=== PATIENT | female | born 1935 | race Caucasian/White ===

== ENCOUNTER 2017-05-24 16:29 | Inpatient (IN) | payer MEDICARE ==
[~2017-05-24] VITALS: Ht 157.5 cm; Wt 77.6 kg
[2017-05-24] MEDS ORDERED: RISP0.5T3 PO (16:53)
[2017-05-24] MEDS ORDERED: AMLO10TA2 PO (16:53)
[2017-05-24] MEDS ORDERED: DONE5TAB56 PO (16:53)
[2017-05-24] MEDS ORDERED: ACET325T9 PO (16:53)
[2017-05-24] MEDS ORDERED: HALO2TAB PO (16:53)
[2017-05-24 18:40] VITALS: BP 153/52
[2017-05-24] MEDS ORDERED: MAG HYDROX/AL HYDROX/SIMETH 30 ML ORAL.SUSP PO PRN (18:45)
[2017-05-24] MEDS ORDERED: METHYL SALICYLATE/MENTHOL TOPICAL OINTMENT 29GM TUBE. TP PRN (18:45)
[2017-05-24] MEDS ORDERED: MAGNESIUM HYDROXIDE 2,400 MG/30 ML ORAL.SUSP. PO PRN (18:45)
[2017-05-24] MEDS ORDERED: ACETAMINOPHEN 325 MG TABLET PO PRN (18:45)
[2017-05-24] MEDS: DONEPEZIL HCL 5 MG TABLET. PO SCH (19:56)
[2017-05-24] MEDS: risperiDONE 0.25 MG TABLET. PO SCH (19:56)
--- NOTE | 2017-05-24 20:46 | PDOC ---
Exam Chemo Demential Exam: Chemo Note: Please also refer to the separate dictated note~for this date of service dictated separately.~Patient seen individually. Discussed the patient with Nursing staff reviewed the chart.~Reviewed interim history and current functioning. Reviewed vital signs,~Labs/ Radiology~and current medications noted below. Continue current treatment with the changes noted in the dictated addendum note Assessment: Vital Signs: Vital Signs Date Time Temp Pulse Resp B/P (MAP) Pulse Ox O2 Delivery O2 Flow Rate FiO2 05/24/17 18:40 98.4 74 18 153/52 (85) 97 Current Medications: Meds: Current Medications Amlodipine Besylate (Norvasc) 10 mg DAILY PO ; Start 05/25/17 at 09:00 Donepezil HCl (Aricept) 5 mg HS PO Last administered on 05/24/17 19:56; Start 05/24/17 at 21:00 Risperidone (RisperDAL) 0.25 mg BID PO Last administered on 05/24/17 19:56; Start 05/24/17 at 21:00 Acetaminophen (Tylenol) 650 mg PRN Q6HRS PRN PO PAIN / TEMP; Start 05/24/17 at 18:45 Multi-Ingredient Ointment (Analgesic [place]) 1 shell PRN QID PRN TP MUSCLE PAIN; Start 05/24/17 at 18:45 Al Hydroxide/Mg Hydroxide (Mylanta Plus Xs) 15 ml PRN AFTMEALHC PRN PO DYSPEPSIA; Start 05/24/17 at 18:45 Magnesium Hydroxide (Milk Of Magnesia) 2,400 mg PRN QHS PRN PO CONSTIPATION; Start 05/24/17 at 18:45 Active Scripts Active Reported Risperidone 0.5 Mg Tablet 0.25 Mg PO BID Aricept (Donepezil Hcl) 5 Mg Tablet 5 Mg PO HS Amlodipine Besylate 10 Mg Tablet 10 Mg PO DAILY SCOTT OLSON MD May 24, 2017 20:46
--- NOTE | 2017-05-24 20:58 | EKG ---
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
[2017-05-25 06:28] VITALS: BP 181/81
[2017-05-25 06:28] LABS: BASO # 0.1 x10^3/uL (0.0-0.2); BASO % 1 % (0-3); EOS # 0.3 x10^3/uL (0.0-0.7); EOS % 4 % (0-3); HEMATOCRIT 42.1 % (36.0-47.0); HEMOGLOBIN 14.2 g/dL (12.0-15.5); LYMPH % 36 % (24-48); MEAN CORPUSCULAR HEMOGLOBIN 32 pg (25-35); MEAN CORPUSCULAR HGB CONC 34 g/dL (31-37); MEAN CORPUSCULAR VOLUME 94 fL (79-100); MONO # 0.9 x10^3/uL (0.0-1.1); MONO % 11 % (0-9); NEUT % 48 % (31-73); PLATELET COUNT 319 x10^3/uL (140-400); RED CELL DISTRIBUTION WIDTH 14.1 % (11.5-14.5); WHITE BLOOD COUNT 8.3 x10^3/uL (4.0-11.0)
[2017-05-25 06:37] LABS: ALBUMIN 3.8 g/dL (3.4-5.0); ALBUMIN/GLOBULIN RATIO 0.9 (1.0-1.7); CALCIUM 9.5 mg/dL (8.5-10.1); CREATININE 0.7 mg/dL (0.6-1.0); GFR 80.3; MAGNESIUM 2.3 mg/dL (1.8-2.4); POTASSIUM 3.7 mmol/L (3.5-5.1); TOTAL BILIRUBIN 0.5 mg/dL (0.2-1.0)
[2017-05-25] MEDS: risperiDONE 0.25 MG TABLET. PO SCH (08:13)
[2017-05-25] MEDS: amLODIPine BESYLATE 10 MG TABLET PO SCH (08:16)
--- NOTE | 2017-05-25 10:35 | PN ---
DATE: 05/24/2017 PSYCHIATRIC PROGRESS NOTE This late entry 05/24/2017 covers elements, not covered in my initial note of 05/24/2017. I met with the patient evening of 05/24/2017 for this evaluation. IDENTIFYING DATA: The patient is an 81-year-old female, referred to us from [facility] where she was admitted on account of recurrence of psychotic symptoms with prior history reportedly of schizophrenia. Apparently, the patient was in a car with her sister, became delusional, believed her sister was someone else and she was being kidnapped. She tried to jump from a moving car, was extremely agitated, and behaviors were deemed potentially dangerous. She had failed outpatient psychiatric interventions, taken to the [facility], admitted inpatient. Son reports she has been increasingly confused, incontinent, unable to manage her at home, anxious, paranoid, refusing cares and medications. CHIEF COMPLAINT: "Yes, that was happening." The patient responded once referral information was addressed with her. HISTORY OF PRESENT ILLNESS: The patient has a history of increasing short term memory deficits, confusion, past history of schizophrenia, worsening psychotic symptoms recently. She has additionally had UTI, treated on Rocephin and certainly this could have been worsening her confusion. She has had some sleep and appetite changes. No active suicidal or homicidal ideation. She has had a past history of mood swings, questionable diagnosis of schizophrenia. PAST PSYCHIATRIC HISTORY: As above. MEDICAL HISTORY: Status post urinary tract infection, cellulitis of lower extremity, hypokalemia, hypertension. CODE STATUS: DNR. ALLERGIES: No known drug allergies. FAMILY HISTORY: Noncontributory. SOCIAL HISTORY: No history of alcohol or drug abuse; physical, sexual or elder abuse. She is not known to be a perpetrator. She ambulates independently. MENTAL STATUS EXAM: The patient was seen individually evening of 05/24/2017. She is oriented to herself, but knew she came from [facility], believes she was still at [facility], unaware of the year. Speech is coherent, abstraction fair, computation impaired, language function intact. Attention span short. Memory is impaired for short term events. No active suicidal or homicidal ideation. Assets, supportive family, physically reasonably healthy. Reaction to hospitalization, the patient is accepting of this. 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 Rest diagnoses as above. PLAN: Admit to the geropsychiatry unit at [facility]. I will see the patient daily individually from a psychiatric standpoint. Medical followup per Dr. Cardona/Dr. Perdomo. Continue current psychotropics, observe baseline and make further adjustments as clinically indicated. MAN Nataly OLSON MD DR: JAZZMINE/dennis JOB#: [id number] / [id number]
[2017-05-25 11:03] VITALS: BP 161/74
[2017-05-25 16:15] VITALS: BP 169/64
[2017-05-25 19:10] LABS: HEMOGLOBIN A1C 5.7 % (4.8-5.6); T3 TOTAL 122 ng/dL (71-180)
[2017-05-25] MEDS: DONEPEZIL HCL 5 MG TABLET. PO SCH (19:45)
--- NOTE | 2017-05-25 20:37 | PDOC ---
Exam Chemo Demential Exam: Chemo Note: Please also refer to the separate dictated note~for this date of service dictated separately.~Patient seen individually. Discussed the patient with Nursing staff reviewed the chart.~Reviewed interim history and current functioning. Reviewed vital signs,~Labs/ Radiology~and current medications noted below. Continue current treatment with the changes noted in the dictated addendum note Assessment: Vital Signs: Vital Signs Date Time Temp Pulse Resp B/P (MAP) Pulse Ox O2 Delivery O2 Flow Rate FiO2 05/25/17 16:15 98.1 77 18 169/64 (99) 95 Room Air I&O Intake and Output 05/26/17 07:00 Intake Total 840 ml Balance 840 ml Intake Oral 840 ml Labs: Laboratory Tests Test 05/25/17 06:11 White Blood Count 8.3 x10^3/uL (4.0-11.0) Red Blood Count 4.50 x10^6/uL (3.50-5.40) Hemoglobin 14.2 g/dL (12.0-15.5) Hematocrit 42.1 % (36.0-47.0) Mean Corpuscular Volume 94 fL (79-100) Mean Corpuscular Hemoglobin 32 pg (25-35) Mean Corpuscular Hemoglobin Concent 34 g/dL (31-37) Red Cell Distribution Width 14.1 % (11.5-14.5) Platelet Count 319 x10^3/uL (140-400) Neutrophils (%) (Auto) 48 % (31-73) Lymphocytes (%) (Auto) 36 % (24-48) Monocytes (%) (Auto) 11 % (0-9) H Eosinophils (%) (Auto) 4 % (0-3) H Basophils (%) (Auto) 1 % (0-3) Neutrophils # (Auto) 4.0 x10^3uL (1.8-7.7) Lymphocytes # (Auto) 3.0 x10^3/uL (1.0-4.8) Monocytes # (Auto) 0.9 x10^3/uL (0.0-1.1) Eosinophils # (Auto) 0.3 x10^3/uL (0.0-0.7) Basophils # (Auto) 0.1 x10^3/uL (0.0-0.2) Sodium Level 146 mmol/L (136-145) H Potassium Level 3.7 mmol/L (3.5-5.1) Chloride Level 108 mmol/L (98-107) H Carbon Dioxide Level 31 mmol/L (21-32) Anion Gap 7 (6-14) Blood Urea Nitrogen 28 mg/dL (7-20) H Creatinine 0.7 mg/dL (0.6-1.0) Estimated GFR (Cockcroft-Gault) 80.3 BUN/Creatinine Ratio 40 (6-20) H Glucose Level 107 mg/dL (70-99) H Hemoglobin A1c 5.7 % (4.8-5.6) H Calcium Level 9.5 mg/dL (8.5-10.1) Magnesium Level 2.3 mg/dL (1.8-2.4) Iron Level 79 ug/dL (50-170) Total Iron Binding Capacity 421 ug/dL (250-450) Iron Saturation 19 % (15-34) Total Bilirubin 0.5 mg/dL (0.2-1.0) Aspartate Amino Transferase (AST) 17 U/L (15-37) Alanine Aminotransferase (ALT) 26 U/L (14-59) Alkaline Phosphatase 124 U/L (46-116) H Total Protein 8.0 g/dL (6.4-8.2) Albumin 3.8 g/dL (3.4-5.0) Albumin/Globulin Ratio 0.9 (1.0-1.7) L 25-Hydroxy Vitamin D Total Pending Thyroxine (T4) 8.0 ug/dL (4.5-12.0) Total Triiodothyronine (TT3) 122 ng/dL (71-180) RPR Titer Additional Testing Pending Current Medications: Meds: Current Medications Amlodipine Besylate (Norvasc) 10 mg DAILY PO Last administered on 05/25/17 08: 16; Start 05/25/17 at 09:00 Donepezil HCl (Aricept) 5 mg HS PO Last administered on 05/25/17 19:45; Start 05/24/17 at 21:00 Risperidone (RisperDAL) 0.25 mg BID PO Last administered on 05/25/17 08:13; Start 05/24/17 at 21:00; Stop 05/25/17 at 14:17; Status DC Acetaminophen (Tylenol) 650 mg PRN Q6HRS PRN PO PAIN / TEMP; Start 05/24/17 at 18:45 Multi-Ingredient Ointment (Analgesic [place]) 1 shell PRN QID PRN TP MUSCLE PAIN; Start 05/24/17 at 18:45 Al Hydroxide/Mg Hydroxide (Mylanta Plus Xs) 15 ml PRN AFTMEALHC PRN PO DYSPEPSIA; Start 05/24/17 at 18:45 Magnesium Hydroxide (Milk Of Magnesia) 2,400 mg PRN QHS PRN PO CONSTIPATION; Start 05/24/17 at 18:45 Risperidone (RisperDAL) 0.25 mg DAILY PO ; Start 05/26/17 at 09:00 Risperidone (RisperDAL) 0.5 mg HS PO Last administered on 05/25/17t 19:46; Start 05/25/17 at 21:00 Sertraline HCl (Zoloft) 25 mg DAILY PO ; Start 05/26/17 at 09:00 Active Scripts Active Reported Risperidone 0.5 Mg Tablet 0.25 Mg PO BID Aricept (Donepezil Hcl) 5 Mg Tablet 5 Mg PO HS Amlodipine Besylate 10 Mg Tablet 10 Mg PO DAILY Diagnosis: Problems: (1) Alzheimer's dementia (2) Anxiety disorder (3) Bipolar 1 disorder, manic, moderate (4) Dementia in Alzheimer's disease with delirium (5) Major neurocognitive disorder, due to vascular disease, with behavioral disturbance, mild (6) Schizoaffective disorder, bipolar type (7) Vascular dementia with behavior disturbance (8) Impulse control disorder SCOTT OLSON MD May 25, 2017 20:37
[2017-05-25] MEDS ORDERED: risperiDONE 0.5 MG TABLET. PO SCH (21:00)
--- NOTE | 2017-05-26 05:06 | CONS ---
DATE OF CONSULTATION: 05/25/2017 HISTORY OF PRESENT ILLNESS: The patient is an 81-year-old female patient, who apparently was admitted as a transfer from [facility] on account of recurrence of psychotic symptoms with prior history reportedly of paranoid schizophrenia. She apparently was in a car with her sister, became delusional, believed her sister was someone else and that she was being kidnapped. She tried to jump from moving car, was extremely agitated, behavior was potentially dangerous. She has failed outpatient psychiatric intervention, taken to the [facility], admitted as an inpatient, was admitted to this facility for inpatient psychiatric stabilization. On questioning her this afternoon, she was very depressed and stated that she wants to and that is all ____ will do. Nursing staff noted that she has a lump in her right breast. She stated that she does not want anything to do with it. PAST MEDICAL HISTORY: Significant for cellulitis, both lower extremities, hypertension, urinary tract infection, and hypokalemia. PAST SURGICAL HISTORY: Unremarkable. ALLERGIES: She has no known drug allergies. MEDICATIONS: She is currently on following medications: She is on amlodipine 10 mg once a day, Aricept 5 mg at bedtime, and risperidone 0.25 mg twice a day. FAMILY HISTORY: Unremarkable. SOCIAL HISTORY: She apparently used to live with her son and then went to live with her sister, who was unable to take care of her. She apparently does not smoke, drink alcohol, or use any recreational drugs. REVIEW OF SYSTEMS: As per history of present illness. PHYSICAL EXAMINATION: GENERAL: When I examined her this afternoon, she was sitting comfortably in the edge of the bed, in no apparent respiratory distress, pale, but no jaundice, cyanosis, or thyromegaly. No jugular venous distention. No limb edema. VITAL SIGNS: Her heart rate was 79, blood pressure was 161/74, temperature was 97.9, respiratory rate 20, and oxygen saturation was 96%. HEENT: Normocephalic, atraumatic. NECK: Supple. HEART: Showed normal first and second heart sounds with no gallop, rub, or murmur. CHEST: Clear to auscultation. No crepitation or rhonchi. ABDOMEN: Distended, soft, nontender. No guarding or rigidity. No organomegaly. Her hernial orifice is intact. Bowel sounds normal. NEUROLOGIC: She was awake, alert, responding appropriately. Cranial nerves intact. EXTREMITIES: She moves all extremities without difficulty. She ambulates without assistance or assistive devices. Examination of the right breast compared to the left showed that she has a large lump, probably involving all quadrants with effacement of her . LABORATORY DATA: On admission showed a white cell count of 8300, hemoglobin 14, hematocrit 42, MCV 94, and platelet count of 319,000 with a manual differential showed 48% polymorphs, % lymphocytes, and 11% monocytes. Her chemistry showed a serum sodium 146, potassium 3.7, chloride 108, bicarbonate 31, anion gap of 7, BUN 28, creatinine 0.7, estimated GFR was 80 mL per minute. Her glucose was 107, calcium was 9.5, magnesium 2.3. Total bilirubin, AST, ALT, alkaline phosphatase were normal. Total protein 8, albumin was 3.8. IMPRESSION: In summary, this is an 81-year-old female patient, who was admitted on the account of being delusional, extremely agitated, failing outpatient psychiatric intervention. She was seen in the [facility] and was admitted to [facility] for inpatient psychiatric stabilization. Medically, the patient is hypertensive for which she is on amlodipine; however, her blood pressure is still not suboptimally controlled. Her lab works are all within acceptable range. PLAN: My plan is to arrange for her to have CT scan of the head. We will also arrange to have ultrasound of her right breast. She will eventually need to be evaluated by the general surgeon to do a mammogram and probably right lumpectomy versus right mastectomy. Thank you, Dr. Park for allowing me to participate in the care of this patient. SALLY SAAVEDRA MD DR: VERNA/dennis JOB#: [id number] / [id number]
[2017-05-26 07:07] VITALS: BP 168/67
[2017-05-26] MEDS ORDERED: risperiDONE 0.25 MG TABLET. PO SCH (09:00)
[2017-05-26 09:39] LABS: THYROID STIM HORMONE (TSH) 4.773 uIU/mL (0.358-3.740)
[2017-05-26 11:46] VITALS: BP 130/67
[2017-05-26] MEDS: amLODIPine BESYLATE 10 MG TABLET PO SCH (13:12)
[2017-05-26] MEDS: SERTRALINE 25 MG TABLET. PO SCH (13:12)
--- NOTE | 2017-05-26 13:59 | RAD ---
Exam performed: Right breast ultrasound. History: Palpable lump in the right breast. Date of service: 05/25/17. Comparison: None available Findings: Sonographic evaluation of the right breast demonstrates a large 5.2 x 4.1 x 3.4 cm heterogeneous vascular mass in the central right breast. Impression: Large heterogeneous solid vascular 5.2 x 4.1 x 3.4 cm mass in the right breast system with a breast cancer, unless proven otherwise. The findings were discussed with patient's nurse Xochitl at the time of dictation. BI-RADS Category 5: Highly suspicious finding.. Biopsy is recommended Mammography is the most sensitive method for finding small breast cancers, but it does not detect them all and is not a substitute for careful clinical examination. A negative mammogram does not negate a clinically suspicious finding and should not result in delay in biopsying a clinically suspicious abnormality. "Our facility is accredited by the [employer] Mammography Program."
[2017-05-26 16:03] VITALS: BP 165/70
[2017-05-26] MEDS: CHOLECALCIFEROL (VITAMIN D3) 50,000 UNIT CAPSULE PO SCH (16:49)
[2017-05-26] MEDS: DONEPEZIL HCL 5 MG TABLET. PO SCH (20:05)
[2017-05-26] MEDS: risperiDONE 0.5 MG TABLET. PO SCH (20:05)
--- NOTE | 2017-05-26 20:53 | PDOC ---
Exam Chemo Demential Exam: Chemo Note: Please also refer to the separate dictated note~for this date of service dictated separately.~Patient seen individually. Discussed the patient with Nursing staff reviewed the chart.~Reviewed interim history and current functioning. Reviewed vital signs,~Labs/ Radiology~and current medications noted below. Continue current treatment with the changes noted in the dictated addendum note Assessment: Vital Signs: Vital Signs Date Time Temp Pulse Resp B/P (MAP) Pulse Ox O2 Delivery O2 Flow Rate FiO2 05/26/17 16:03 98.3 75 18 165/70 (101) 96 05/25/17 16:15 Room Air I&O Intake and Output 05/27/17 07:00 Intake Total 960 ml Balance 960 ml Intake Oral 960 ml # Bowel Movements 1 Current Medications: Meds: Current Medications Amlodipine Besylate (Norvasc) 10 mg DAILY PO Last administered on 05/26/17 13 :12; Start 05/25/17 at 09:00 Donepezil HCl (Aricept) 5 mg HS PO Last administered on 05/26/17 20:05; Start 05/24/17 at 21:00 Risperidone (RisperDAL) 0.25 mg BID PO Last administered on 05/25/17 08:13; Start 05/24/17 at 21:00; Stop 05/25/17 at 14:17; Status DC Acetaminophen (Tylenol) 650 mg PRN Q6HRS PRN PO PAIN / TEMP; Start 05/24/17 at 18:45 Multi-Ingredient Ointment (Analgesic [place]) 1 shell PRN QID PRN TP MUSCLE PAIN; Start 05/24/17 at 18:45 Al Hydroxide/Mg Hydroxide (Mylanta Plus Xs) 15 ml PRN AFTMEALHC PRN PO DYSPEPSIA; Start 05/24/17 at 18:45 Magnesium Hydroxide (Milk Of Magnesia) 2,400 mg PRN QHS PRN PO CONSTIPATION; Start 05/24/17 at 18:45 Risperidone (RisperDAL) 0.25 mg DAILY PO Last administered on 05/26/17 09:45 ; Start 05/26/17 at 09:00; Stop 05/26/17 at 18:25; Status DC Risperidone (RisperDAL) 0.5 mg HS PO Last administered on 05/25/17 19:46; Start 05/25/17 at 21:00; Stop 05/26/17 at 18:25; Status DC Sertraline HCl (Zoloft) 25 mg DAILY PO Last administered on 05/26/17 13:12; Start 05/26/17 at 09:00 Vitamin D (Vitamin D3) 50,000 unit WEEKLY PO Last administered on 05/26/17 16 :49; Start 05/26/17 at 16:00 Risperidone (RisperDAL) 0.5 mg BID PO Last administered on 05/26/17 20:05; Start 05/26/17 at 21:00 Active Scripts Active Reported Risperidone 0.5 Mg Tablet 0.25 Mg PO BID Aricept (Donepezil Hcl) 5 Mg Tablet 5 Mg PO HS Amlodipine Besylate 10 Mg Tablet 10 Mg PO DAILY Diagnosis: Problems: (1) Alzheimer's dementia (2) Anxiety disorder (3) Bipolar 1 disorder, manic, moderate (4) Dementia in Alzheimer's disease with delirium (5) Major neurocognitive disorder, due to vascular disease, with behavioral disturbance, mild (6) Schizoaffective disorder, bipolar type (7) Vascular dementia with behavior disturbance (8) Impulse control disorder SCOTT OLSON MD May 26, 2017 20:53
--- NOTE | 2017-05-27 02:57 | PN ---
DATE: 05/25/2017 This late entry 05/25/2017 covers elements not covered in my initial note of 05/25/2017. SUBJECTIVE: I met with the patient evening of 05/25/2017. Nursing staff have noticed breast lump on the right side. Reportedly, she had a workup at [facility], will defer to Dr. Cardona/Dr. Perdomo. She did well the previous evening, compliant with medications, get confused, somewhat paranoid, believes she is in halfway, somewhat paranoid about her son as well. REVIEW OF SYSTEMS: No CV, , pulmonary, eye, ENT system symptoms on review. MENTAL STATUS EXAM: Oriented to herself, at times situation. Speech is coherent, abstraction fair, computation impaired, language function intact. Mood and affect still somewhat labile. LABORATORY DATA: Reviewed. IMPRESSION: Major neurocognitive disorder, Alzheimer, vascular with delusion, depression, schizophrenia, chronic, undifferentiated, versus psychotic disorder, unspecified, anxiety disorder, unspecified. PLAN: Risperdal is currently 0.25 mg b.i.d., will increase to 0.25 mg in the morning and 0.5 mg at night. Continue Aricept 10 mg a day, start Zoloft 25 mg a day for her mood, anxiety symptoms. Review drug interactions. Risk/benefit ratio favors no further change at this time. MAN Nataly OLSON MD DR: JAZZMINE/dennis JOB#: [id number] / [id number]
[2017-05-27 06:25] VITALS: BP 147/75
[2017-05-27] MEDS: SERTRALINE 25 MG TABLET. PO SCH (08:16)
[2017-05-27] MEDS: amLODIPine BESYLATE 10 MG TABLET PO SCH (08:16)
[2017-05-27] MEDS: risperiDONE 0.5 MG TABLET. PO SCH ×2 (08:16→20:54)
[2017-05-27 16:44] VITALS: BP 147/80
--- NOTE | 2017-05-27 20:37 | PDOC ---
Exam Chemo Demential Exam: Chemo Note: Please also refer to the separate dictated note~for this date of service dictated separately.~Patient seen individually. Discussed the patient with Nursing staff reviewed the chart.~Reviewed interim history and current functioning. Reviewed vital signs,~Labs/ Radiology~and current medications noted below. Continue current treatment with the changes noted in the dictated addendum note Assessment: Vital Signs: Vital Signs Date Time Temp Pulse Resp B/P (MAP) Pulse Ox O2 Delivery O2 Flow Rate FiO2 05/27/17 16:44 98.1 64 18 147/80 (102) 93 05/25/17 16:15 Room Air I&O Intake and Output 05/28/17 07:00 Intake Total 840 ml Balance 840 ml Intake Oral 840 ml Current Medications: Meds: Current Medications Amlodipine Besylate (Norvasc) 10 mg DAILY PO Last administered on 05/27/17 08 :16; Start 05/25/17 at 09:00 Donepezil HCl (Aricept) 5 mg HS PO Last administered on 05/26/17 20:05; Start 05/24/17 at 21:00 Risperidone (RisperDAL) 0.25 mg BID PO Last administered on 05/25/17 08:13; Start 05/24/17 at 21:00; Stop 05/25/17 at 14:17; Status DC Acetaminophen (Tylenol) 650 mg PRN Q6HRS PRN PO PAIN / TEMP; Start 05/24/17 at 18:45 Multi-Ingredient Ointment (Analgesic [place]) 1 shell PRN QID PRN TP MUSCLE PAIN; Start 05/24/17 at 18:45 Al Hydroxide/Mg Hydroxide (Mylanta Plus Xs) 15 ml PRN AFTMEALHC PRN PO DYSPEPSIA; Start 05/24/17 at 18:45 Magnesium Hydroxide (Milk Of Magnesia) 2,400 mg PRN QHS PRN PO CONSTIPATION; Start 05/24/17 at 18:45 Risperidone (RisperDAL) 0.25 mg DAILY PO Last administered on 05/26/17 09:45 ; Start 05/26/17 at 09:00; Stop 05/26/17 at 18:25; Status DC Risperidone (RisperDAL) 0.5 mg HS PO Last administered on 05/25/17 19:46; Start 05/25/17 at 21:00; Stop 05/26/17 at 18:25; Status DC Sertraline HCl (Zoloft) 25 mg DAILY PO Last administered on 05/27/17 08:16; Start 05/26/17 at 09:00; Stop 05/27/17 at 18:38; Status DC Vitamin D (Vitamin D3) 50,000 unit WEEKLY PO Last administered on 05/26/17 16 :49; Start 05/26/17 at 16:00 Risperidone (RisperDAL) 0.5 mg BID PO Last administered on 05/27/17 08:16; Start 05/26/17 at 21:00 Sertraline HCl (Zoloft) 50 mg DAILY PO ; Start 05/28/17 at 09:00 Active Scripts Active Reported Risperidone 0.5 Mg Tablet 0.25 Mg PO BID Aricept (Donepezil Hcl) 5 Mg Tablet 5 Mg PO HS Amlodipine Besylate 10 Mg Tablet 10 Mg PO DAILY Diagnosis: Problems: (1) Alzheimer's dementia (2) Anxiety disorder (3) Bipolar 1 disorder, manic, moderate (4) Dementia in Alzheimer's disease with delirium (5) Major neurocognitive disorder, due to vascular disease, with behavioral disturbance, mild (6) Schizoaffective disorder, bipolar type (7) Vascular dementia with behavior disturbance (8) Impulse control disorder SCOTT OLSON MD May 27, 2017 20:37
[2017-05-27] MEDS: DONEPEZIL HCL 5 MG TABLET. PO SCH (20:55)
[2017-05-28 06:11] VITALS: BP 177/78
--- NOTE | 2017-05-28 06:52 | PN ---
DATE: 05/26/2017 PSYCHIATRIC PROGRESS NOTE This late entry 05/26/2017 covers elements, not covered in my initial note of 05/26/2017. SUBJECTIVE: I met with the patient evening of 05/26/2017. The patient remains quite confused and psychotic. In the morning of 05/26/2017, she was found on her niece in her room entirely naked by the nursing staff. She is quite paranoid, psychotic, believes the nursing staff are the mafia. She refused her medications. Risperdal was given to her in her drink. She is quite tearful, labile in the mood morning of 05/26/2017, talking about "bad people." She also talked about her dad and sister being mean. She slept 5 hours previous evening. There is a breast lump and the son indicated he might want to take her out for a surgical consult for this while she is still hospitalized here. Since this is not feasible, we will consult Dr. Sarkar. REVIEW OF SYSTEMS: No CV, , pulmonary, eye, ENT system symptoms on review. Reliability poor. MENTAL STATUS EXAM: Oriented to herself. Insight, judgment, recent memory is impaired. Language function intact, attention span short, mood and affect somewhat labile. She is quite psychotic, paranoid. LABORATORY DATA: Reviewed. IMPRESSION: Schizophrenia, chronic, undifferentiated with acute exacerbation; anxiety disorder, unspecified; major neurocognitive disorder, early Alzheimer, vascular with delusion, depression. Rest diagnoses unchanged including breast lump. PLAN: The patient is currently on Risperdal 0.25 mg morning, 0.5 mg at night and we will increase this to 0.5 mg twice a day, may use liquid for compliance. Continue Zoloft 25 mg a day, Aricept 10 mg a day. As I met with her, she was fixated on "all black people are killers." Nursing staff will address this with her during individual visits. Reviewed drug interactions. Risk/benefit ratio favors no further change at this time. MAN Nataly OLSON MD DR: JAZZMINE/dennis JOB#: [id number] / [id number]
[2017-05-28] MEDS: risperiDONE 0.5 MG TABLET. PO SCH ×2 (09:26→20:31)
[2017-05-28] MEDS: SERTRALINE 50 MG TABLET. PO SCH (09:26)
[2017-05-28] MEDS: amLODIPine BESYLATE 10 MG TABLET PO SCH (09:27)
--- NOTE | 2017-05-28 14:58 | HP ---
ADMIT DATE: 05/24/2017 PSYCHIATRIC PROGRESS NOTE This late entry 05/24/2017 covers elements, not covered in my initial note of 05/24/2017. I met with the patient evening of 05/24/2017 for this evaluation. IDENTIFYING DATA: The patient is an 81-year-old female, referred to us from [facility] where she was admitted on account of recurrence of psychotic symptoms with prior history reportedly of schizophrenia. Apparently, the patient was in a car with her sister, became delusional, believed her sister was someone else and she was being kidnapped. She tried to jump from a moving car, was extremely agitated, and behaviors were deemed potentially dangerous. She had failed outpatient psychiatric interventions, taken to the [facility], admitted inpatient. Son reports she has been increasingly confused, incontinent, unable to manage her at home, anxious, paranoid, refusing cares and medications. CHIEF COMPLAINT: "Yes, that was happening." The patient responded once referral information was addressed with her. HISTORY OF PRESENT ILLNESS: The patient has a history of increasing short term memory deficits, confusion, past history of schizophrenia, worsening psychotic symptoms recently. She has additionally had UTI, treated on Rocephin and certainly this could have been worsening her confusion. She has had some sleep and appetite changes. No active suicidal or homicidal ideation. She has had a past history of mood swings, questionable diagnosis of schizophrenia. PAST PSYCHIATRIC HISTORY: As above. MEDICAL HISTORY: Status post urinary tract infection, cellulitis of lower extremity, hypokalemia, hypertension. CODE STATUS: DNR. ALLERGIES: No known drug allergies. FAMILY HISTORY: Noncontributory. SOCIAL HISTORY: No history of alcohol or drug abuse; physical, sexual or elder abuse. She is not known to be a perpetrator. She ambulates independently. MENTAL STATUS EXAM: The patient was seen individually evening of 05/24/2017. She is oriented to herself, but knew she came from [facility], believes she was still at [facility], unaware of the year. Speech is coherent, abstraction fair, computation impaired, language function intact. Attention span short. Memory is impaired for short term events. No active suicidal or homicidal ideation. Assets, supportive family, physically reasonably healthy. Reaction to hospitalization, the patient is accepting of this. 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 Rest diagnoses as above. PLAN: Admit to the geropsychiatry unit at [facility]. I will see the patient daily individually from a psychiatric standpoint. Medical followup per Dr. Cardona/Dr. Perdomo. Continue current psychotropics, observe baseline and make further adjustments as clinically indicated. MAN Nataly OLSON MD DR: JAZZMINE/nts JOB#: [id number] / [id number]
[2017-05-28 16:31] VITALS: BP 156/74
[2017-05-28] MEDS: DONEPEZIL HCL 5 MG TABLET. PO SCH (20:31)
[2017-05-28] MEDS: MIRTAZAPINE 7.5 MG TABLET. PO SCH (20:31)
[2017-05-28] MEDS: traZODone 50 MG TABLET. PO PRN ×2 (20:31→22:12)
--- NOTE | 2017-05-28 20:43 | PDOC ---
Exam Chemo Demential Exam: Chemo Note: Please also refer to the separate dictated note~for this date of service dictated separately.~Patient seen individually. Discussed the patient with Nursing staff reviewed the chart.~Reviewed interim history and current functioning. Reviewed vital signs,~Labs/ Radiology~and current medications noted below. Continue current treatment with the changes noted in the dictated addendum note Assessment: Vital Signs: Vital Signs Date Time Temp Pulse Resp B/P (MAP) Pulse Ox O2 Delivery O2 Flow Rate FiO2 05/28/17 16:31 97.5 67 16 156/74 (101) 96 05/25/17 16:15 Room Air I&O Intake and Output 05/29/17 07:00 Intake Total 720 ml Balance 720 ml Intake Oral 720 ml Current Medications: Meds: Current Medications Amlodipine Besylate (Norvasc) 10 mg DAILY PO Last administered on 05/28/17 09 :27; Start 05/25/17 at 09:00 Donepezil HCl (Aricept) 5 mg HS PO Last administered on 05/28/17 20:31; Start 05/24/17 at 21:00 Risperidone (RisperDAL) 0.25 mg BID PO Last administered on 05/25/17 08:13; Start 05/24/17 at 21:00; Stop 05/25/17 at 14:17; Status DC Acetaminophen (Tylenol) 650 mg PRN Q6HRS PRN PO PAIN / TEMP; Start 05/24/17 at 18:45 Multi-Ingredient Ointment (Analgesic [place]) 1 shell PRN QID PRN TP MUSCLE PAIN; Start 05/24/17 at 18:45 Al Hydroxide/Mg Hydroxide (Mylanta Plus Xs) 15 ml PRN AFTMEALHC PRN PO DYSPEPSIA; Start 05/24/17 at 18:45 Magnesium Hydroxide (Milk Of Magnesia) 2,400 mg PRN QHS PRN PO CONSTIPATION; Start 05/24/17 at 18:45 Risperidone (RisperDAL) 0.25 mg DAILY PO Last administered on 05/26/17 09:45 ; Start 05/26/17 at 09:00; Stop 05/26/17 at 18:25; Status DC Risperidone (RisperDAL) 0.5 mg HS PO Last administered on 05/25/17 19:46; Start 05/25/17 at 21:00; Stop 05/26/17 at 18:25; Status DC Sertraline HCl (Zoloft) 25 mg DAILY PO Last administered on 05/27/17 08:16; Start 05/26/17 at 09:00; Stop 05/27/17 at 18:38; Status DC Vitamin D (Vitamin D3) 50,000 unit WEEKLY PO Last administered on 05/26/17 16 :49; Start 05/26/17 at 16:00 Risperidone (RisperDAL) 0.5 mg BID PO Last administered on 05/28/17 20:31; Start 05/26/17 at 21:00 Sertraline HCl (Zoloft) 50 mg DAILY PO Last administered on 05/28/17 09:26; Start 05/28/17 at 09:00 Divalproex Sodium (Depakote Sprinkles) 500 mg HS PO Last administered on 20:31; Start 05/28/17 at 21:00 Mirtazapine (Remeron) 7.5 mg QHS PO Last administered on 05/28/17 20:31; Start 05/28/17 at 21:00 Trazodone HCl (Desyrel) 50 mg PRN QHS PRN PO Insomnia Last administered on 20:31; Start 05/28/17 at 20:15 Olanzapine (ZyPREXA ZYDIS) 2.5 mg PRN Q2HR PRN PO Anxiety/ Agitation; Start at 20:15 Active Scripts Active Reported Risperidone 0.5 Mg Tablet 0.25 Mg PO BID Aricept (Donepezil Hcl) 5 Mg Tablet 5 Mg PO HS Amlodipine Besylate 10 Mg Tablet 10 Mg PO DAILY Diagnosis: Problems: (1) Alzheimer's dementia (2) Anxiety disorder (3) Bipolar 1 disorder, manic, moderate (4) Dementia in Alzheimer's disease with delirium (5) Major neurocognitive disorder, due to vascular disease, with behavioral disturbance, mild (6) Schizoaffective disorder, bipolar type (7) Vascular dementia with behavior disturbance (8) Impulse control disorder SCOTT OLSON MD May 28, 2017 20:43
[2017-05-28] MEDS ORDERED: DIVALPROEX 125 MG CAP.SPRINK PO SCH (21:00)
[2017-05-29 06:23] VITALS: BP 144/67
[2017-05-29] MEDS: SERTRALINE 50 MG TABLET. PO SCH (09:53)
[2017-05-29] MEDS: risperiDONE 0.5 MG TABLET. PO SCH ×2 (09:54→20:15)
[2017-05-29] MEDS: amLODIPine BESYLATE 10 MG TABLET PO SCH (09:54)
[2017-05-29 16:42] VITALS: BP 150/62
[2017-05-29] MEDS: MIRTAZAPINE 7.5 MG TABLET. PO SCH (20:15)
[2017-05-29] MEDS: DONEPEZIL HCL 5 MG TABLET. PO SCH (20:15)
--- NOTE | 2017-05-29 20:51 | PDOC ---
Exam Chemo Demential Exam: Chemo Note: Please also refer to the separate dictated note~for this date of service dictated separately.~Patient seen individually. Discussed the patient with Nursing staff reviewed the chart.~Reviewed interim history and current functioning. Reviewed vital signs,~Labs/ Radiology~and current medications noted below. Continue current treatment with the changes noted in the dictated addendum note Assessment: Vital Signs: Vital Signs Date Time Temp Pulse Resp B/P (MAP) Pulse Ox O2 Delivery O2 Flow Rate FiO2 05/29/17 16:42 98.5 64 20 150/62 (91) 05/29/17 06:23 92 05/25/17 16:15 Room Air I&O Intake and Output 05/30/17 07:00 Intake Total 660 ml Balance 660 ml Intake Oral 660 ml Current Medications: Meds: Current Medications Amlodipine Besylate (Norvasc) 10 mg DAILY PO Last administered on 05/29/17 09 :54; Start 05/25/17 at 09:00 Donepezil HCl (Aricept) 5 mg HS PO Last administered on 05/29/17 20:15; Start 05/24/17 at 21:00 Risperidone (RisperDAL) 0.25 mg BID PO Last administered on 05/25/17 08:13; Start 05/24/17 at 21:00; Stop 05/25/17 at 14:17; Status DC Acetaminophen (Tylenol) 650 mg PRN Q6HRS PRN PO PAIN / TEMP; Start 05/24/17 at 18:45 Multi-Ingredient Ointment (Analgesic [place]) 1 shell PRN QID PRN TP MUSCLE PAIN; Start 05/24/17 at 18:45 Al Hydroxide/Mg Hydroxide (Mylanta Plus Xs) 15 ml PRN AFTMEALHC PRN PO DYSPEPSIA; Start 05/24/17 at 18:45 Magnesium Hydroxide (Milk Of Magnesia) 2,400 mg PRN QHS PRN PO CONSTIPATION; Start 05/24/17 at 18:45 Risperidone (RisperDAL) 0.25 mg DAILY PO Last administered on 05/26/17 09:45 ; Start 05/26/17 at 09:00; Stop 05/26/17 at 18:25; Status DC Risperidone (RisperDAL) 0.5 mg HS PO Last administered on 05/25/17 19:46; Start 05/25/17 at 21:00; Stop 05/26/17 at 18:25; Status DC Sertraline HCl (Zoloft) 25 mg DAILY PO Last administered on 05/27/17 08:16; Start 05/26/17 at 09:00; Stop 05/27/17 at 18:38; Status DC Vitamin D (Vitamin D3) 50,000 unit WEEKLY PO Last administered on 05/26/17 16 :49; Start 05/26/17 at 16:00 Risperidone (RisperDAL) 0.5 mg BID PO Last administered on 05/29/17 20:15; Start 05/26/17 at 21:00 Sertraline HCl (Zoloft) 50 mg DAILY PO Last administered on 05/29/17 09:53; Start 05/28/17 at 09:00 Divalproex Sodium (Depakote Sprinkles) 500 mg HS PO Last administered on 20:31; Start 05/28/17 at 21:00; Status Future hold Mirtazapine (Remeron) 7.5 mg QHS PO Last administered on 05/29/17 20:15; Start 05/28/17 at 21:00 Trazodone HCl (Desyrel) 50 mg PRN QHS PRN PO Insomnia Last administered on 22:12; Start 05/28/17 at 20:15; Status Future hold Olanzapine (ZyPREXA ZYDIS) 2.5 mg PRN Q2HR PRN PO Anxiety/ Agitation Last administered on 05/28/17 22:13; Start 05/28/17 at 20:15 Active Scripts Active Reported Risperidone 0.5 Mg Tablet 0.25 Mg PO BID Aricept (Donepezil Hcl) 5 Mg Tablet 5 Mg PO HS Amlodipine Besylate 10 Mg Tablet 10 Mg PO DAILY Diagnosis: Problems: (1) Alzheimer's dementia (2) Anxiety disorder (3) Bipolar 1 disorder, manic, moderate (4) Dementia in Alzheimer's disease with delirium (5) Major neurocognitive disorder, due to vascular disease, with behavioral disturbance, mild (6) Schizoaffective disorder, bipolar type (7) Vascular dementia with behavior disturbance (8) Impulse control disorder SCOTT OLSON MD May 29, 2017 20:51
--- NOTE | 2017-05-30 04:05 | PN ---
DATE: 05/28/2017 This late entry for 05/28/2017 covers elements not covered in my initial note of 05/28/2017. SUBJECTIVE: I met with the patient evening of 05/28/2017 when she was staffed at treatment team meeting with the entire team morning of 05/28/2017. The patient's sister who is a retired physician's carpenter assistant attended the treatment team meeting. We reviewed her history at length, current diagnosis, treatment medications. Reportedly, the patient dropped out of college and came and lived at home and lived in a closet at home for about 2 years. Close review of this history is indicative of her onset of schizophrenia and psychosis. She was treated on some medications in the 70s, details are unclear and she started attending sabianism and with that support, she was able to functionally adapt to her psychosis. She is twice, has 4 children. She is still sleeping poorly, slept 2 hours previous evening, repeating things like "kill Jews, god bless Linda, you are a Confucianist and devil." She had to be placed in the [place] to reduce stimulation and agitation, responded to this. At times, she appears spacey, bowel incontinent, tried to flush her brief down the toilet. REVIEW OF SYSTEMS: No CV, , pulmonary, eye, ENT system symptoms on review. MENTAL STATUS EXAM: Oriented to herself. Insight, judgment, recent and remote memory, attention, concentration, fund of knowledge poor, consistent with her diagnosis as mentioned in my initial note. IMPRESSION: Major neurocognitive disorder, Alzheimer, vascular with depression, delusion, behavioral disturbance, schizophrenia, chronic, undifferentiated with acute exacerbation; anxiety disorder, unspecified; impulse control disorder, unspecified. PLAN: Maintain Risperdal 0.5 mg b.i.d., Zoloft 50 mg a day, Aricept 10 mg a day, Depakote Sprinkles 500 mg p.o. at bedtime. Labs level awaited for 05/31/2017. Starting 05/29/2017, we will also add Remeron 7.5 mg p.o. at bedtime to help with insomnia and mood lability. Reviewed drug interactions. Risks and benefit ratio favors no further change. Discussed all of this at length with the sister. MAN M. WESLEY, MD DR: JAZZMINE/dennis JOB#: [id number] / [id number]
[2017-05-30 06:34] VITALS: BP 159/69
[2017-05-30] MEDS: risperiDONE 0.5 MG TABLET. PO SCH ×2 (09:03→19:42)
[2017-05-30] MEDS: amLODIPine BESYLATE 10 MG TABLET PO SCH (09:03)
[2017-05-30] MEDS: SERTRALINE 50 MG TABLET. PO SCH (09:03)
[2017-05-30 16:17] VITALS: BP 176/70
[2017-05-30] MEDS: DONEPEZIL HCL 5 MG TABLET. PO SCH (19:42)
[2017-05-30] MEDS: MIRTAZAPINE 7.5 MG TABLET. PO SCH (19:42)
--- NOTE | 2017-05-30 21:55 | PDOC ---
Exam Chemo Demential Exam: Chemo Note: Please also refer to the separate dictated note~for this date of service dictated separately.~Patient seen individually. Discussed the patient with Nursing staff reviewed the chart.~Reviewed interim history and current functioning. Reviewed vital signs,~Labs/ Radiology~and current medications noted below. Continue current treatment with the changes noted in the dictated addendum note Assessment: Vital Signs: Vital Signs Date Time Temp Pulse Resp B/P (MAP) Pulse Ox O2 Delivery O2 Flow Rate FiO2 05/30/17 16:17 97.7 63 18 176/70 (105) 94 Room Air I&O Intake and Output 05/31/17 07:00 Intake Total 1140 ml Balance 1140 ml Intake Oral 1140 ml Current Medications: Meds: Current Medications Amlodipine Besylate (Norvasc) 10 mg DAILY PO Last administered on 05/30/17 09 :03; Start 05/25/17 at 09:00 Donepezil HCl (Aricept) 5 mg HS PO Last administered on 05/30/17 19:42; Start 05/24/17 at 21:00 Risperidone (RisperDAL) 0.25 mg BID PO Last administered on 05/25/17 08:13; Start 05/24/17 at 21:00; Stop 05/25/17 at 14:17; Status DC Acetaminophen (Tylenol) 650 mg PRN Q6HRS PRN PO PAIN / TEMP; Start 05/24/17 at 18:45 Multi-Ingredient Ointment (Analgesic [place]) 1 shell PRN QID PRN TP MUSCLE PAIN; Start 05/24/17 at 18:45 Al Hydroxide/Mg Hydroxide (Mylanta Plus Xs) 15 ml PRN AFTMEALHC PRN PO DYSPEPSIA; Start 05/24/17 at 18:45 Magnesium Hydroxide (Milk Of Magnesia) 2,400 mg PRN QHS PRN PO CONSTIPATION; Start 05/24/17 at 18:45 Risperidone (RisperDAL) 0.25 mg DAILY PO Last administered on 05/26/17 09:45 ; Start 05/26/17 at 09:00; Stop 05/26/17 at 18:25; Status DC Risperidone (RisperDAL) 0.5 mg HS PO Last administered on 05/25/17 19:46; Start 05/25/17 at 21:00; Stop 05/26/17 at 18:25; Status DC Sertraline HCl (Zoloft) 25 mg DAILY PO Last administered on 05/27/17 08:16; Start 05/26/17 at 09:00; Stop 05/27/17 at 18:38; Status DC Vitamin D (Vitamin D3) 50,000 unit WEEKLY PO Last administered on 05/26/17 16 :49; Start 05/26/17 at 16:00 Risperidone (RisperDAL) 0.5 mg BID PO Last administered on 05/30/17 19:42; Start 05/26/17 at 21:00 Sertraline HCl (Zoloft) 50 mg DAILY PO Last administered on 05/30/17 09:03; Start 05/28/17 at 09:00 Divalproex Sodium (Depakote Sprinkles) 500 mg HS PO Last administered on 20:31; Start 05/28/17 at 21:00; Stop 05/30/17 at 21:43; Status DC Mirtazapine (Remeron) 7.5 mg QHS PO Last administered on 05/30/17 19:42; Start 05/28/17 at 21:00 Trazodone HCl (Desyrel) 50 mg PRN QHS PRN PO Insomnia Last administered on 22:12; Start 05/28/17 at 20:15; Status Future hold Olanzapine (ZyPREXA ZYDIS) 2.5 mg PRN Q2HR PRN PO Anxiety/ Agitation Last administered on 05/28/17 22:13; Start 05/28/17 at 20:15 Divalproex Sodium (Depakote Sprinkles) 500 mg HS PO Last administered on 21:49; Start 05/30/17 at 22:00 Active Scripts Active Reported Risperidone 0.5 Mg Tablet 0.25 Mg PO BID Aricept (Donepezil Hcl) 5 Mg Tablet 5 Mg PO HS Amlodipine Besylate 10 Mg Tablet 10 Mg PO DAILY Diagnosis: Problems: (1) Alzheimer's dementia (2) Anxiety disorder (3) Bipolar 1 disorder, manic, moderate (4) Dementia in Alzheimer's disease with delirium (5) Major neurocognitive disorder, due to vascular disease, with behavioral disturbance, mild (6) Schizoaffective disorder, bipolar type (7) Vascular dementia with behavior disturbance (8) Impulse control disorder SCOTT OLSON MD May 30, 2017 21:55
[2017-05-30] MEDS ORDERED: DIVALPROEX 125 MG CAP.SPRINK PO SCH (22:00)
--- NOTE | 2017-05-31 01:33 | PN ---
DATE: 05/29/2017 PSYCHIATRIC PROGRESS NOTE This late entry for date of service 05/29/2017 covers the elements not covered in my initial note of 05/29/2017 SUBJECTIVE: I met with the patient in the evening of 05/29/2017. The patient has been quite sedated. We have been holding the Depakote and trazodone and Zyprexa to help get over the sedation. She remains psychotic. REVIEW OF SYSTEMS: No CV, , pulmonary, eye, ENT system symptoms on review. Reliability poor. MENTAL STATUS EXAMINATION: Oriented to herself. Insight, judgment, recent and remote memory, attention, concentration, fund of knowledge poor, consistent with her diagnosis, still quite psychotic. LABORATORY DATA: Reviewed. IMPRESSION: Unchanged from initial note. PLAN: Continue the current psychotropics other than changes mentioned above. Reviewed drug interactions. Risk/benefit ratio favors no further change. MAN Nataly OLSON MD DR: JAZZMINE/dennis JOB#: [id number] / [id number]
[2017-05-31 06:15] VITALS: BP 139/78
[2017-05-31 06:53] LABS: BASO # 0.1 x10^3/uL (0.0-0.2); BASO % 1 % (0-3); EOS # 0.4 x10^3/uL (0.0-0.7); EOS % 5 % (0-3); HEMATOCRIT 37.7 % (36.0-47.0); HEMOGLOBIN 12.8 g/dL (12.0-15.5); LYMPH # 2.3 x10^3/uL (1.0-4.8); LYMPH % 29 % (24-48); MEAN CORPUSCULAR HEMOGLOBIN 32 pg (25-35); MEAN CORPUSCULAR HGB CONC 34 g/dL (31-37); MEAN CORPUSCULAR VOLUME 93 fL (79-100); MONO # 0.9 x10^3/uL (0.0-1.1); MONO % 12 % (0-9); NEUT # 4.2 x10^3uL (1.8-7.7); NEUT % 53 % (31-73); PLATELET COUNT 251 x10^3/uL (140-400); RED BLOOD COUNT 4.04 x10^6/uL (3.50-5.40); RED CELL DISTRIBUTION WIDTH 13.8 % (11.5-14.5); WHITE BLOOD COUNT 7.9 x10^3/uL (4.0-11.0)
[2017-05-31 07:01] LABS: ALBUMIN 3.1 g/dL (3.4-5.0); ALBUMIN/GLOBULIN RATIO 0.8 (1.0-1.7); ALK PHOS 119 U/L (46-116); ALT (SGPT) 35 U/L (14-59); ANION GAP 8 (6-14); AST (SGOT) 29 U/L (15-37); BLOOD UREA NITROGEN 29 mg/dL (7-20); BUN/CREATININE RATIO 41 (6-20); CALCIUM 8.9 mg/dL (8.5-10.1); CARBON DIOXIDE 30 mmol/L (21-32); CHLORIDE 106 mmol/L (98-107); CREATININE 0.7 mg/dL (0.6-1.0); GFR 80.3; GLUCOSE 99 mg/dL (70-99); POTASSIUM 3.6 mmol/L (3.5-5.1); SODIUM 144 mmol/L (136-145); TOTAL BILIRUBIN 0.5 mg/dL (0.2-1.0)
[2017-05-31 07:02] LABS: VAL ACID 42 mcg/mL (50-100)
[2017-05-31] MEDS: amLODIPine BESYLATE 10 MG TABLET PO SCH (07:42)
[2017-05-31] MEDS: risperiDONE 0.5 MG TABLET. PO SCH ×2 (07:42→19:43)
[2017-05-31] MEDS: SERTRALINE 50 MG TABLET. PO SCH (07:42)
--- NOTE | 2017-05-31 09:59 | PN ---
DATE: 05/30/2017 PSYCHIATRIC PROGRESS NOTE This is a late entry 05/30/2017, covers elements not covered my initial note of 05/30/2017. SUBJECTIVE: I met with the patient the evening of 05/30/2017. Overall, the patient has been more awake, alert, slightly more interactive, feeding herself. Previous evening, she was flat and sedated per nursing staff. REVIEW OF SYSTEMS: Ambulation impaired. No CV, , pulmonary, eye, ENT system symptoms on review. MENTAL STATUS EXAM: Oriented to herself. Insight, judgment, recent and remote memory, attention, concentration, fund of knowledge poor, consistent with her diagnoses mentioned in my initial note. PLAN: Continue current psychotropics mentioned in my initial note. Review drug interactions. Risk/benefit ratio favors no further change. MAN Nataly OLSON MD DR: JAZZMINE/dennis JOB#: [id number] / [id number]
[2017-05-31 16:22] VITALS: BP 125/75
[2017-05-31] MEDS: MIRTAZAPINE 7.5 MG TABLET. PO SCH (19:43)
[2017-05-31] MEDS: DIVALPROEX 125 MG CAP.SPRINK PO SCH (19:43)
[2017-05-31] MEDS: DONEPEZIL HCL 5 MG TABLET. PO SCH (19:44)
--- NOTE | 2017-05-31 20:56 | PDOC ---
Exam Chemo Demential Exam: Chemo Note: Please also refer to the separate dictated note~for this date of service dictated separately.~Patient seen individually. Discussed the patient with Nursing staff reviewed the chart.~Reviewed interim history and current functioning. Reviewed vital signs,~Labs/ Radiology~and current medications noted below. Continue current treatment with the changes noted in the dictated addendum note Assessment: Vital Signs: Vital Signs Date Time Temp Pulse Resp B/P (MAP) Pulse Ox O2 Delivery O2 Flow Rate FiO2 05/31/17 16:22 98.3 63 16 125/75 (92) 94 Room Air I&O Intake and Output 06/01/17 07:00 Intake Total 840 ml Balance 840 ml Intake Oral 840 ml Labs: Laboratory Tests Test 05/31/17 06:20 White Blood Count 7.9 x10^3/uL (4.0-11.0) Red Blood Count 4.04 x10^6/uL (3.50-5.40) Hemoglobin 12.8 g/dL (12.0-15.5) Hematocrit 37.7 % (36.0-47.0) Mean Corpuscular Volume 93 fL (79-100) Mean Corpuscular Hemoglobin 32 pg (25-35) Mean Corpuscular Hemoglobin Concent 34 g/dL (31-37) Red Cell Distribution Width 13.8 % (11.5-14.5) Platelet Count 251 x10^3/uL (140-400) Neutrophils (%) (Auto) 53 % (31-73) Lymphocytes (%) (Auto) 29 % (24-48) Monocytes (%) (Auto) 12 % (0-9) H Eosinophils (%) (Auto) 5 % (0-3) H Basophils (%) (Auto) 1 % (0-3) Neutrophils # (Auto) 4.2 x10^3uL (1.8-7.7) Lymphocytes # (Auto) 2.3 x10^3/uL (1.0-4.8) Monocytes # (Auto) 0.9 x10^3/uL (0.0-1.1) Eosinophils # (Auto) 0.4 x10^3/uL (0.0-0.7) Basophils # (Auto) 0.1 x10^3/uL (0.0-0.2) Sodium Level 144 mmol/L (136-145) Potassium Level 3.6 mmol/L (3.5-5.1) Chloride Level 106 mmol/L (98-107) Carbon Dioxide Level 30 mmol/L (21-32) Anion Gap 8 (6-14) Blood Urea Nitrogen 29 mg/dL (7-20) H Creatinine 0.7 mg/dL (0.6-1.0) Estimated GFR (Cockcroft-Gault) 80.3 BUN/Creatinine Ratio 41 (6-20) H Glucose Level 99 mg/dL (70-99) Calcium Level 8.9 mg/dL (8.5-10.1) Total Bilirubin 0.5 mg/dL (0.2-1.0) Aspartate Amino Transferase (AST) 29 U/L (15-37) Alanine Aminotransferase (ALT) 35 U/L (14-59) Alkaline Phosphatase 119 U/L (46-116) H Total Protein 7.0 g/dL (6.4-8.2) Albumin 3.1 g/dL (3.4-5.0) L Albumin/Globulin Ratio 0.8 (1.0-1.7) L Valproic Acid Level 42 mcg/mL (50-100) L Valproic Acid Last Dose Date 05/30/17 Valproic Acid Last Dose Time 2100 Current Medications: Meds: Current Medications Amlodipine Besylate (Norvasc) 10 mg DAILY PO Last administered on 05/31/17 07 :42; Start 05/25/17 at 09:00 Donepezil HCl (Aricept) 5 mg HS PO Last administered on 05/31/17 19:44; Start 05/24/17 at 21:00 Risperidone (RisperDAL) 0.25 mg BID PO Last administered on 05/25/17 08:13; Start 05/24/17 at 21:00; Stop 05/25/17 at 14:17; Status DC Acetaminophen (Tylenol) 650 mg PRN Q6HRS PRN PO PAIN / TEMP; Start 05/24/17 at 18:45 Multi-Ingredient Ointment (Analgesic [place]) 1 shell PRN QID PRN TP MUSCLE PAIN; Start 05/24/17 at 18:45 Al Hydroxide/Mg Hydroxide (Mylanta Plus Xs) 15 ml PRN AFTMEALHC PRN PO DYSPEPSIA; Start 05/24/17 at 18:45 Magnesium Hydroxide (Milk Of Magnesia) 2,400 mg PRN QHS PRN PO CONSTIPATION; Start 05/24/17 at 18:45 Risperidone (RisperDAL) 0.25 mg DAILY PO Last administered on 05/26/17 09:45 ; Start 05/26/17 at 09:00; Stop 05/26/17 at 18:25; Status DC Risperidone (RisperDAL) 0.5 mg HS PO Last administered on 05/25/17 19:46; Start 05/25/17 at 21:00; Stop 05/26/17 at 18:25; Status DC Sertraline HCl (Zoloft) 25 mg DAILY PO Last administered on 05/27/17 08:16; Start 05/26/17 at 09:00; Stop 05/27/17 at 18:38; Status DC Vitamin D (Vitamin D3) 50,000 unit WEEKLY PO Last administered on 05/26/17 16 :49; Start 05/26/17 at 16:00 Risperidone (RisperDAL) 0.5 mg BID PO Last administered on 05/31/17 19:43; Start 05/26/17 at 21:00 Sertraline HCl (Zoloft) 50 mg DAILY PO Last administered on 05/31/17 07:42; Start 05/28/17 at 09:00 Divalproex Sodium (Depakote Sprinkles) 500 mg HS PO Last administered on 20:31; Start 05/28/17 at 21:00; Stop 05/30/17 at 21:43; Status DC Mirtazapine (Remeron) 7.5 mg QHS PO Last administered on 05/31/17 19:43; Start 05/28/17 at 21:00 Trazodone HCl (Desyrel) 50 mg PRN QHS PRN PO Insomnia Last administered on 22:12; Start 05/28/17 at 20:15; Status Future hold Olanzapine (ZyPREXA ZYDIS) 2.5 mg PRN Q2HR PRN PO Anxiety/ Agitation Last administered on 05/28/17 22:13; Start 05/28/17 at 20:15 Divalproex Sodium (Depakote Sprinkles) 500 mg HS PO Last administered on 21:49; Start 05/30/17 at 22:00; Stop 05/31/17 at 19:12; Status DC Divalproex Sodium (Depakote Sprinkles) 250 mg HS PO Last administered on 19:43; Start 05/31/17 at 21:00 Divalproex Sodium (Depakote Sprinkles) 250 mg HS PO ; Start 05/31/17 at 21:00; Stop 05/31/17 at 21:00; Status DC Active Scripts Active Reported Risperidone 0.5 Mg Tablet 0.25 Mg PO BID Aricept (Donepezil Hcl) 5 Mg Tablet 5 Mg PO HS Amlodipine Besylate 10 Mg Tablet 10 Mg PO DAILY Diagnosis: Problems: (1) Alzheimer's dementia (2) Anxiety disorder (3) Bipolar 1 disorder, manic, moderate (4) Dementia in Alzheimer's disease with delirium (5) Major neurocognitive disorder, due to vascular disease, with behavioral disturbance, mild (6) Schizoaffective disorder, bipolar type (7) Vascular dementia with behavior disturbance (8) Impulse control disorder SCOTT OLSON MD May 31, 2017 20:56
[2017-05-31] MEDS ORDERED: DIVALPROEX 125 MG CAP.SPRINK PO SCH (21:00)
--- NOTE | 2017-06-01 05:27 | PN ---
DATE: 05/27/2017 This late entry, date of service 05/27/2017, covers elements not covered in my initial note of 05/27/2017. I met with the patient evening of 05/27/2017. The patient took her medications in the morning. Affect is flat. She is staring into space, psychotic, but not voicing the paranoia about mafia and nursing staff being part of the mafia and meds being poisoned like she was doing previously. Her sister visited, patient was smiling, interactive, confused. Previous evening, she was quite psychotic, shredded, brief incontinent. Remains somewhat anxious, obsessive. REVIEW OF SYSTEMS: Ambulation impaired. No CV, , pulmonary, eye, ENT system symptoms on review. MENTAL STATUS EXAM: Oriented to herself. Insight, judgment, recent and remote memory, attention, concentration, fund of knowledge poor, consistent with her diagnosis. LABORATORY DATA: Major neurocognitive disorder, Alzheimer, vascular with delusion, depression, behavioral disturbance, schizophrenia, chronic, undifferentiated with acute exacerbation. Rest diagnosis unchanged. PLAN: Continue current psychotropics. Increase Zoloft from 25 mg a day to 50 mg a day. Maintain Risperdal 0.5 b.i.d., Aricept 10 mg a day, review drug interactions. Risk, benefit ratio favors no change. SCOTT OLSON MD DR: JAZZMINE/dennis JOB#: [id number] / [id number]
[2017-06-01 08:22] VITALS: BP 117/75
[2017-06-01] MEDS: amLODIPine BESYLATE 10 MG TABLET PO SCH (08:48)
[2017-06-01] MEDS: SERTRALINE 50 MG TABLET. PO SCH (08:49)
[2017-06-01] MEDS: risperiDONE 0.5 MG TABLET. PO SCH ×2 (08:49→19:24)
[2017-06-01 16:18] VITALS: BP 167/61
[2017-06-01] MEDS: MIRTAZAPINE 7.5 MG TABLET. PO SCH (19:24)
[2017-06-01] MEDS: DONEPEZIL HCL 5 MG TABLET. PO SCH (19:24)
[2017-06-01] MEDS: DIVALPROEX 125 MG CAP.SPRINK PO SCH (19:25)
--- NOTE | 2017-06-01 21:31 | PDOC ---
Exam Chemo Demential Exam: Chemo Note: Please also refer to the separate dictated note~for this date of service dictated separately.~Patient seen individually. Discussed the patient with Nursing staff reviewed the chart.~Reviewed interim history and current functioning. Reviewed vital signs,~Labs/ Radiology~and current medications noted below. Continue current treatment with the changes noted in the dictated addendum note Assessment: Vital Signs: Vital Signs Date Time Temp Pulse Resp B/P (MAP) Pulse Ox O2 Delivery O2 Flow Rate FiO2 06/01/17 16:18 98.1 65 20 167/61 (96) 95 Room Air I&O Intake and Output 06/02/17 07:00 Intake Total 920 ml Balance 920 ml Intake Oral 920 ml Current Medications: Meds: Current Medications Amlodipine Besylate (Norvasc) 10 mg DAILY PO Last administered on 06/01/17 08 :48; Start 05/25/17 at 09:00 Donepezil HCl (Aricept) 5 mg HS PO Last administered on 06/01/17 19:24; Start 05/24/17 at 21:00 Risperidone (RisperDAL) 0.25 mg BID PO Last administered on 05/25/17 08:13; Start 05/24/17 at 21:00; Stop 05/25/17 at 14:17; Status DC Acetaminophen (Tylenol) 650 mg PRN Q6HRS PRN PO PAIN / TEMP; Start 05/24/17 at 18:45 Multi-Ingredient Ointment (Analgesic [place]) 1 shell PRN QID PRN TP MUSCLE PAIN; Start 05/24/17 at 18:45 Al Hydroxide/Mg Hydroxide (Mylanta Plus Xs) 15 ml PRN AFTMEALHC PRN PO DYSPEPSIA; Start 05/24/17 at 18:45 Magnesium Hydroxide (Milk Of Magnesia) 2,400 mg PRN QHS PRN PO CONSTIPATION; Start 05/24/17 at 18:45 Risperidone (RisperDAL) 0.25 mg DAILY PO Last administered on 05/26/17 09:45 ; Start 05/26/17 at 09:00; Stop 05/26/17 at 18:25; Status DC Risperidone (RisperDAL) 0.5 mg HS PO Last administered on 05/25/17 19:46; Start 05/25/17 at 21:00; Stop 05/26/17 at 18:25; Status DC Sertraline HCl (Zoloft) 25 mg DAILY PO Last administered on 05/27/17 08:16; Start 05/26/17 at 09:00; Stop 05/27/17 at 18:38; Status DC Vitamin D (Vitamin D3) 50,000 unit WEEKLY PO Last administered on 05/26/17 16 :49; Start 05/26/17 at 16:00 Risperidone (RisperDAL) 0.5 mg BID PO Last administered on 06/01/17 19:24; Start 05/26/17 at 21:00 Sertraline HCl (Zoloft) 50 mg DAILY PO Last administered on 06/01/17 08:49; Start 05/28/17 at 09:00 Divalproex Sodium (Depakote Sprinkles) 500 mg HS PO Last administered on 20:31; Start 05/28/17 at 21:00; Stop 05/30/17 at 21:43; Status DC Mirtazapine (Remeron) 7.5 mg QHS PO Last administered on 06/01/17 19:24; Start 05/28/17 at 21:00 Trazodone HCl (Desyrel) 50 mg PRN QHS PRN PO Insomnia Last administered on 22:12; Start 05/28/17 at 20:15; Status Future hold Olanzapine (ZyPREXA ZYDIS) 2.5 mg PRN Q2HR PRN PO Anxiety/ Agitation Last administered on 05/28/17 22:13; Start 05/28/17 at 20:15 Divalproex Sodium (Depakote Sprinkles) 500 mg HS PO Last administered on 21:49; Start 05/30/17 at 22:00; Stop 05/31/17 at 19:12; Status DC Divalproex Sodium (Depakote Sprinkles) 250 mg HS PO Last administered on 19:25; Start 05/31/17 at 21:00 Divalproex Sodium (Depakote Sprinkles) 250 mg HS PO ; Start 05/31/17 at 21:00; Stop 05/31/17 at 21:00; Status DC Active Scripts Active Reported Risperidone 0.5 Mg Tablet 0.25 Mg PO BID Aricept (Donepezil Hcl) 5 Mg Tablet 5 Mg PO HS Amlodipine Besylate 10 Mg Tablet 10 Mg PO DAILY Diagnosis: Problems: (1) Alzheimer's dementia (2) Anxiety disorder (3) Bipolar 1 disorder, manic, moderate (4) Dementia in Alzheimer's disease with delirium (5) Major neurocognitive disorder, due to vascular disease, with behavioral disturbance, mild (6) Schizoaffective disorder, bipolar type (7) Vascular dementia with behavior disturbance (8) Impulse control disorder SCOTT OLSON MD Jun 01, 2017 21:31
--- NOTE | 2017-06-02 01:12 | PN ---
DATE: 05/31/2017 This late entry 05/31/2017 covers elements not covered in my initial note of 05/31/2017. I met with the patient evening of 05/31/2017. The patient has been less withdrawn, less sedated, certainly confused, somewhat psychotic. Nursing staff wonder whether she is oversedated on the 500 mg Depakote at night and we will reduce it to 250 mg p.o. at bedtime. REVIEW OF SYSTEMS: Ambulation impaired. No CV, , pulmonary, eye, ENT system symptoms on review, not very verbal. MENTAL STATUS EXAM: Oriented to herself. Insight, judgment, recent, and remote memory, attention, concentration, fund of knowledge poor, consistent with her diagnosis mentioned in my initial note. PLAN: Continue current psychotropics. Reviewed drug interactions, risk/benefit ratio favors no further change. MAN Nataly OLSON MD DR: JAZZMINE/dennis JOB#: [id number] / [id number]
[2017-06-02 06:20] VITALS: BP 152/63
[2017-06-02] MEDS: risperiDONE 0.5 MG TABLET. PO SCH ×2 (07:40→20:02)
[2017-06-02] MEDS: SERTRALINE 50 MG TABLET. PO SCH (07:40)
[2017-06-02] MEDS: amLODIPine BESYLATE 10 MG TABLET PO SCH (07:40)
[2017-06-02] MEDS: CHOLECALCIFEROL (VITAMIN D3) 50,000 UNIT CAPSULE PO SCH (07:41)
[2017-06-02 16:08] VITALS: BP 181/73
[2017-06-02] MEDS: MIRTAZAPINE 7.5 MG TABLET. PO SCH (20:01)
[2017-06-02] MEDS: DONEPEZIL HCL 5 MG TABLET. PO SCH (20:02)
[2017-06-02] MEDS: DIVALPROEX 125 MG CAP.SPRINK PO SCH (20:02)
--- NOTE | 2017-06-02 20:28 | PDOC ---
Exam Chemo Demential Exam: Chemo Note: Please also refer to the separate dictated note~for this date of service dictated separately.~Patient seen individually. Discussed the patient with Nursing staff reviewed the chart.~Reviewed interim history and current functioning. Reviewed vital signs,~Labs/ Radiology~and current medications noted below. Continue current treatment with the changes noted in the dictated addendum note Assessment: Vital Signs: Vital Signs Date Time Temp Pulse Resp B/P (MAP) Pulse Ox O2 Delivery O2 Flow Rate FiO2 06/02/17 16:08 97.9 63 18 181/73 (109) 97 06/01/17 16:18 Room Air I&O Intake and Output 06/03/17 07:00 Intake Total 1080 ml Balance 1080 ml Intake Oral 1080 ml Current Medications: Meds: Current Medications Amlodipine Besylate (Norvasc) 10 mg DAILY PO Last administered on 06/02/17 07 :40; Start 05/25/17 at 09:00 Donepezil HCl (Aricept) 5 mg HS PO Last administered on 06/02/17 20:02; Start 05/24/17 at 21:00 Risperidone (RisperDAL) 0.25 mg BID PO Last administered on 05/25/17 08:13; Start 05/24/17 at 21:00; Stop 05/25/17 at 14:17; Status DC Acetaminophen (Tylenol) 650 mg PRN Q6HRS PRN PO PAIN / TEMP; Start 05/24/17 at 18:45 Multi-Ingredient Ointment (Analgesic [place]) 1 shell PRN QID PRN TP MUSCLE PAIN; Start 05/24/17 at 18:45 Al Hydroxide/Mg Hydroxide (Mylanta Plus Xs) 15 ml PRN AFTMEALHC PRN PO DYSPEPSIA; Start 05/24/17 at 18:45 Magnesium Hydroxide (Milk Of Magnesia) 2,400 mg PRN QHS PRN PO CONSTIPATION; Start 05/24/17 at 18:45 Risperidone (RisperDAL) 0.25 mg DAILY PO Last administered on 05/26/17 09:45 ; Start 05/26/17 at 09:00; Stop 05/26/17 at 18:25; Status DC Risperidone (RisperDAL) 0.5 mg HS PO Last administered on 05/25/17 19:46; Start 05/25/17 at 21:00; Stop 05/26/17 at 18:25; Status DC Sertraline HCl (Zoloft) 25 mg DAILY PO Last administered on 05/27/17 08:16; Start 05/26/17 at 09:00; Stop 05/27/17 at 18:38; Status DC Vitamin D (Vitamin D3) 50,000 unit WEEKLY PO Last administered on 06/02/17 07 :41; Start 05/26/17 at 16:00 Risperidone (RisperDAL) 0.5 mg BID PO Last administered on 06/02/17 20:02; Start 05/26/17 at 21:00 Sertraline HCl (Zoloft) 50 mg DAILY PO Last administered on 06/02/17 07:40; Start 05/28/17 at 09:00; Stop 06/02/17 at 14:58; Status DC Divalproex Sodium (Depakote Sprinkles) 500 mg HS PO Last administered on 20:31; Start 05/28/17 at 21:00; Stop 05/30/17 at 21:43; Status DC Mirtazapine (Remeron) 7.5 mg QHS PO Last administered on 06/02/17 20:01; Start 05/28/17 at 21:00 Trazodone HCl (Desyrel) 50 mg PRN QHS PRN PO Insomnia Last administered on 22:12; Start 05/28/17 at 20:15; Status Future hold Olanzapine (ZyPREXA ZYDIS) 2.5 mg PRN Q2HR PRN PO Anxiety/ Agitation Last administered on 05/28/17 22:13; Start 05/28/17 at 20:15 Divalproex Sodium (Depakote Sprinkles) 500 mg HS PO Last administered on 21:49; Start 05/30/17 at 22:00; Stop 05/31/17 at 19:12; Status DC Divalproex Sodium (Depakote Sprinkles) 250 mg HS PO Last administered on 20:02; Start 05/31/17 at 21:00 Divalproex Sodium (Depakote Sprinkles) 250 mg HS PO ; Start 05/31/17 at 21:00; Stop 05/31/17 at 21:00; Status DC Bupropion HCl (Wellbutrin Xl) 150 mg DAILY PO ; Start 06/03/17 at 09:00; Stop 06/03/17 at 09:00; Status DC Bupropion HCl (Wellbutrin Xl) 150 mg DAILY PO ; Start 06/03/17 at 09:00; Stop 06/04/17 at 08:59 Bupropion HCl (Wellbutrin Xl) 300 mg DAILY PO ; Start 06/04/17 at 09:00 Active Scripts Active Reported Risperidone 0.5 Mg Tablet 0.25 Mg PO BID Aricept (Donepezil Hcl) 5 Mg Tablet 5 Mg PO HS Amlodipine Besylate 10 Mg Tablet 10 Mg PO DAILY Diagnosis: Problems: (1) Alzheimer's dementia (2) Anxiety disorder (3) Bipolar 1 disorder, manic, moderate (4) Dementia in Alzheimer's disease with delirium (5) Major neurocognitive disorder, due to vascular disease, with behavioral disturbance, mild (6) Schizoaffective disorder, bipolar type (7) Vascular dementia with behavior disturbance (8) Impulse control disorder SCOTT OLSON MD Jun 02, 2017 20:28
--- NOTE | 2017-06-03 03:17 | PN ---
DATE: 06/01/2017 This late entry 06/01/2017 covers elements not covered in my initial note of 06/01/2017. SUBJECTIVE: Met with the patient evening of 06/01/2017. She has been ambulating with a shuffling gait, especially in the morning, unsteady gait, somewhat zombie like walk. Per nursing staff, slow to answer questions, takes her medications, hold somewhat withdrawn. REVIEW OF SYSTEMS: No CV, , pulmonary, eye, ENT system symptoms on review. Reliability poor. MENTAL STATUS EXAM: Oriented to herself. Insight, judgment, recent and remote memory, attention, concentration, fund of knowledge poor, consistent with her diagnosis mentioned in my initial note. PLAN: Continue current psychotropics mentioned in my initial note. Review drug interactions. Risk/benefit ratio favors no further change. She is tolerating the reduced Depakote Sprinkles 250 mg at bedtime, even though it was subtherapeutic, seems to help with mood stabilization. We will change the Zoloft to Wellbutrin XL 150 mg in the morning to help with somewhat more activation and wakefulness, in addition to being on antidepressant. MAN Nataly OLSON MD DR: JAZZMINE/dennis JOB#: [id number] / [id number]
[2017-06-03 06:02] VITALS: BP 180/77
[2017-06-03] MEDS: risperiDONE 0.5 MG TABLET. PO SCH ×2 (07:46→20:06)
[2017-06-03] MEDS: amLODIPine BESYLATE 10 MG TABLET PO SCH (07:46)
[2017-06-03] MEDS ORDERED: buPROPion XL 150 MG TAB.ER.24H PO SCH ×2 (09:00)
[2017-06-03 16:21] VITALS: BP 172/94
[2017-06-03] MEDS ORDERED: cloNIDine HCL 0.1 MG TABLET PO ONE (17:15)
[2017-06-03] MEDS: MIRTAZAPINE 7.5 MG TABLET. PO SCH (20:06)
[2017-06-03] MEDS: DIVALPROEX 125 MG CAP.SPRINK PO SCH (20:06)
[2017-06-03] MEDS: DONEPEZIL HCL 5 MG TABLET. PO SCH (20:06)
--- NOTE | 2017-06-03 20:58 | PDOC ---
Exam Chemo Demential Exam: Chemo Note: Please also refer to the separate dictated note~for this date of service dictated separately.~Patient seen individually. Discussed the patient with Nursing staff reviewed the chart.~Reviewed interim history and current functioning. Reviewed vital signs,~Labs/ Radiology~and current medications noted below. Continue current treatment with the changes noted in the dictated addendum note Assessment: Vital Signs: Vital Signs Date Time Temp Pulse Resp B/P (MAP) Pulse Ox O2 Delivery O2 Flow Rate FiO2 06/03/17 18:29 64 172/94 06/03/17 16:21 97.2 16 94 06/01/17 16:18 Room Air I&O Intake and Output 06/04/17 06:59 Intake Total 840 ml Balance 840 ml Intake Oral 840 ml Current Medications: Meds: Current Medications Amlodipine Besylate (Norvasc) 10 mg DAILY PO Last administered on 06/03/17 07 :46; Start 05/25/17 at 09:00 Donepezil HCl (Aricept) 5 mg HS PO Last administered on 06/03/17 20:06; Start 05/24/17 at 21:00 Risperidone (RisperDAL) 0.25 mg BID PO Last administered on 05/25/17 08:13; Start 05/24/17 at 21:00; Stop 05/25/17 at 14:17; Status DC Acetaminophen (Tylenol) 650 mg PRN Q6HRS PRN PO PAIN / TEMP; Start 05/24/17 at 18:45 Multi-Ingredient Ointment (Analgesic [place]) 1 shell PRN QID PRN TP MUSCLE PAIN; Start 05/24/17 at 18:45 Al Hydroxide/Mg Hydroxide (Mylanta Plus Xs) 15 ml PRN AFTMEALHC PRN PO DYSPEPSIA; Start 05/24/17 at 18:45 Magnesium Hydroxide (Milk Of Magnesia) 2,400 mg PRN QHS PRN PO CONSTIPATION; Start 05/24/17 at 18:45 Risperidone (RisperDAL) 0.25 mg DAILY PO Last administered on 05/26/17 09:45 ; Start 05/26/17 at 09:00; Stop 05/26/17 at 18:25; Status DC Risperidone (RisperDAL) 0.5 mg HS PO Last administered on 05/25/17 19:46; Start 05/25/17 at 21:00; Stop 05/26/17 at 18:25; Status DC Sertraline HCl (Zoloft) 25 mg DAILY PO Last administered on 05/27/17 08:16; Start 05/26/17 at 09:00; Stop 05/27/17 at 18:38; Status DC Vitamin D (Vitamin D3) 50,000 unit WEEKLY PO Last administered on 06/02/17 07 :41; Start 05/26/17 at 16:00 Risperidone (RisperDAL) 0.5 mg BID PO Last administered on 06/03/17 20:06; Start 05/26/17 at 21:00 Sertraline HCl (Zoloft) 50 mg DAILY PO Last administered on 06/02/17 07:40; Start 05/28/17 at 09:00; Stop 06/02/17 at 14:58; Status DC Divalproex Sodium (Depakote Sprinkles) 500 mg HS PO Last administered on 20:31; Start 05/28/17 at 21:00; Stop 05/30/17 at 21:43; Status DC Mirtazapine (Remeron) 7.5 mg QHS PO Last administered on 06/03/17 20:06; Start 05/28/17 at 21:00 Trazodone HCl (Desyrel) 50 mg PRN QHS PRN PO Insomnia Last administered on 22:12; Start 05/28/17 at 20:15; Status Future hold Olanzapine (ZyPREXA ZYDIS) 2.5 mg PRN Q2HR PRN PO Anxiety/ Agitation Last administered on 05/28/17 22:13; Start 05/28/17 at 20:15 Divalproex Sodium (Depakote Sprinkles) 500 mg HS PO Last administered on 21:49; Start 05/30/17 at 22:00; Stop 05/31/17 at 19:12; Status DC Divalproex Sodium (Depakote Sprinkles) 250 mg HS PO Last administered on 20:06; Start 05/31/17 at 21:00 Divalproex Sodium (Depakote Sprinkles) 250 mg HS PO ; Start 05/31/17 at 21:00; Stop 05/31/17 at 21:00; Status DC Bupropion HCl (Wellbutrin Xl) 150 mg DAILY PO ; Start 06/03/17 at 09:00; Stop 06/03/17 at 09:00; Status DC Bupropion HCl (Wellbutrin Xl) 150 mg DAILY PO Last administered on 06/03/17 07:47; Start 06/03/17 at 09:00; Stop 06/04/17 at 08:59 Bupropion HCl (Wellbutrin Xl) 300 mg DAILY PO ; Start 06/04/17 at 09:00 Hydrochlorothiazide (Hydrodiuril) 25 mg DAILY PO ; Start 06/04/17 at 09:00 Clonidine HCl (Catapres) 0.1 mg 1X ONCE PO Last administered on 06/03/17 18: 29; Start 06/03/17 at 17:15; Stop 06/03/17 at 17:16; Status DC Active Scripts Active Reported Risperidone 0.5 Mg Tablet 0.25 Mg PO BID Aricept (Donepezil Hcl) 5 Mg Tablet 5 Mg PO HS Amlodipine Besylate 10 Mg Tablet 10 Mg PO DAILY Diagnosis: Problems: (1) Alzheimer's dementia (2) Anxiety disorder (3) Bipolar 1 disorder, manic, moderate (4) Dementia in Alzheimer's disease with delirium (5) Major neurocognitive disorder, due to vascular disease, with behavioral disturbance, mild (6) Schizoaffective disorder, bipolar type (7) Vascular dementia with behavior disturbance (8) Impulse control disorder SCOTT OLSON MD Jun 03, 2017 20:58
[2017-06-04 06:38] VITALS: BP 158/61
[2017-06-04] MEDS: amLODIPine BESYLATE 10 MG TABLET PO SCH (08:29)
[2017-06-04] MEDS: risperiDONE 0.5 MG TABLET. PO SCH ×2 (08:30→19:23)
[2017-06-04] MEDS: hydroCHLOROthiazide 25 MG TABLET PO SCH (08:32)
[2017-06-04] MEDS: buPROPion XL 300 MG TAB.ER.24H. PO SCH (08:32)
--- NOTE | 2017-06-04 10:07 | PN ---
DATE: 06/02/2017 This late entry 06/02/2017 covers elements not covered in my initial note of 06/02/2017. SUBJECTIVE: I met with the patient in the evening of 06/02/2017. Overall, the patient remains somewhat withdrawn, tired, at times confused, but less psychotic. She is smiling more often in the evening, still somewhat groggy less so than before. REVIEW OF SYSTEMS: No CV, , pulmonary, eye, ENT system symptoms on review. Reliability poor. MENTAL STATUS EXAM: Oriented to herself. Insight, judgment, recent and remote memory, attention, concentration, fund of knowledge poor, consistent with her diagnosis mentioned in my initial note. PLAN: Continue current psychotropics starting the . We will increase Wellbutrin-XL from 150 mg a day to 300 mg a day. Maintain the rest of psychotropics, reviewed drug interactions, risk benefit ratio favors no further change. SCOTT OLSON MD DR: JAZZMINE/dennis JOB#: [id number] / [id number]
[2017-06-04 16:23] VITALS: BP 172/70
[2017-06-04] MEDS: MIRTAZAPINE 7.5 MG TABLET. PO SCH (19:23)
[2017-06-04] MEDS: DONEPEZIL HCL 5 MG TABLET. PO SCH (19:23)
[2017-06-04] MEDS: DIVALPROEX 125 MG CAP.SPRINK PO SCH (19:23)
--- NOTE | 2017-06-04 21:01 | PDOC ---
Exam Chemo Demential Exam: Chemo Note: Please also refer to the separate dictated note~for this date of service dictated separately.~Patient seen individually. Discussed the patient with Nursing staff reviewed the chart.~Reviewed interim history and current functioning. Reviewed vital signs,~Labs/ Radiology~and current medications noted below. Continue current treatment with the changes noted in the dictated addendum note Assessment: Vital Signs: Vital Signs Date Time Temp Pulse Resp B/P (MAP) Pulse Ox O2 Delivery O2 Flow Rate FiO2 06/04/17 16:23 97.4 68 18 172/70 (104) 97 06/01/17 16:18 Room Air I&O Intake and Output 06/05/17 07:00 Intake Total 840 ml Balance 840 ml Intake Oral 840 ml Current Medications: Meds: Current Medications Amlodipine Besylate (Norvasc) 10 mg DAILY PO Last administered on 06/04/17 08 :29; Start 05/25/17 at 09:00 Donepezil HCl (Aricept) 5 mg HS PO Last administered on 06/04/17 19:23; Start 05/24/17 at 21:00 Risperidone (RisperDAL) 0.25 mg BID PO Last administered on 05/25/17 08:13; Start 05/24/17 at 21:00; Stop 05/25/17 at 14:17; Status DC Acetaminophen (Tylenol) 650 mg PRN Q6HRS PRN PO PAIN / TEMP; Start 05/24/17 at 18:45 Multi-Ingredient Ointment (Analgesic [place]) 1 shell PRN QID PRN TP MUSCLE PAIN; Start 05/24/17 at 18:45 Al Hydroxide/Mg Hydroxide (Mylanta Plus Xs) 15 ml PRN AFTMEALHC PRN PO DYSPEPSIA; Start 05/24/17 at 18:45 Magnesium Hydroxide (Milk Of Magnesia) 2,400 mg PRN QHS PRN PO CONSTIPATION; Start 05/24/17 at 18:45 Risperidone (RisperDAL) 0.25 mg DAILY PO Last administered on 05/26/17 09:45 ; Start 05/26/17 at 09:00; Stop 05/26/17 at 18:25; Status DC Risperidone (RisperDAL) 0.5 mg HS PO Last administered on 05/25/17 19:46; Start 05/25/17 at 21:00; Stop 05/26/17 at 18:25; Status DC Sertraline HCl (Zoloft) 25 mg DAILY PO Last administered on 05/27/17 08:16; Start 05/26/17 at 09:00; Stop 05/27/17 at 18:38; Status DC Vitamin D (Vitamin D3) 50,000 unit WEEKLY PO Last administered on 06/02/17 07 :41; Start 05/26/17 at 16:00 Risperidone (RisperDAL) 0.5 mg BID PO Last administered on 06/04/17 19:23; Start 05/26/17 at 21:00 Sertraline HCl (Zoloft) 50 mg DAILY PO Last administered on 06/02/17 07:40; Start 05/28/17 at 09:00; Stop 06/02/17 at 14:58; Status DC Divalproex Sodium (Depakote Sprinkles) 500 mg HS PO Last administered on 20:31; Start 05/28/17 at 21:00; Stop 05/30/17 at 21:43; Status DC Mirtazapine (Remeron) 7.5 mg QHS PO Last administered on 06/04/17 19:23; Start 05/28/17 at 21:00 Trazodone HCl (Desyrel) 50 mg PRN QHS PRN PO Insomnia Last administered on 22:12; Start 05/28/17 at 20:15; Status Future hold Olanzapine (ZyPREXA ZYDIS) 2.5 mg PRN Q2HR PRN PO Anxiety/ Agitation Last administered on 05/28/17 22:13; Start 05/28/17 at 20:15 Divalproex Sodium (Depakote Sprinkles) 500 mg HS PO Last administered on 21:49; Start 05/30/17 at 22:00; Stop 05/31/17 at 19:12; Status DC Divalproex Sodium (Depakote Sprinkles) 250 mg HS PO Last administered on 19:23; Start 05/31/17 at 21:00 Divalproex Sodium (Depakote Sprinkles) 250 mg HS PO ; Start 05/31/17 at 21:00; Stop 05/31/17 at 21:00; Status DC Bupropion HCl (Wellbutrin Xl) 150 mg DAILY PO ; Start 06/03/17 at 09:00; Stop 06/03/17 at 09:00; Status DC Bupropion HCl (Wellbutrin Xl) 150 mg DAILY PO Last administered on 06/03/17 07:47; Start 06/03/17 at 09:00; Stop 06/04/17 at 08:31; Status DC Bupropion HCl (Wellbutrin Xl) 300 mg DAILY PO Last administered on 06/04/17 08:32; Start 06/04/17 at 09:00 Hydrochlorothiazide (Hydrodiuril) 25 mg DAILY PO Last administered on 08:32; Start 06/04/17 at 09:00 Clonidine HCl (Catapres) 0.1 mg 1X ONCE PO Last administered on 06/03/17 18: 29; Start 06/03/17 at 17:15; Stop 06/03/17 at 17:16; Status DC Active Scripts Active Reported Risperidone 0.5 Mg Tablet 0.25 Mg PO BID Aricept (Donepezil Hcl) 5 Mg Tablet 5 Mg PO HS Amlodipine Besylate 10 Mg Tablet 10 Mg PO DAILY Diagnosis: Problems: (1) Alzheimer's dementia (2) Anxiety disorder (3) Bipolar 1 disorder, manic, moderate (4) Dementia in Alzheimer's disease with delirium (5) Major neurocognitive disorder, due to vascular disease, with behavioral disturbance, mild (6) Schizoaffective disorder, bipolar type (7) Vascular dementia with behavior disturbance (8) Impulse control disorder SCOTT OLSON MD Jun 04, 2017 21:01
--- NOTE | 2017-06-05 05:37 | PN ---
DATE: 06/03/2017 PSYCHIATRIC PROGRESS NOTE This late entry 06/03/2017 covers elements not covered in my initial note of 06/03/2017. SUBJECTIVE: The patient has been more awake and alert during the day, alert and oriented x 2 to name and date. Less psychotic. REVIEW OF SYSTEMS: No CV, , pulmonary, eye, ENT system symptoms on review. Reliability poor. MENTAL STATUS EXAM: Oriented to herself. Insight, judgment, recent and remote memory, attention, concentration, fund of knowledge poor, consistent with her diagnosis mentioned in my initial note. PLAN: Continue current psychotropics. Review drug interactions, risk/benefit ratio favors no further change. SCOTT OLSON MD DR: JAZZMINE/dennis JOB#: [id number] / [id number]
[2017-06-05 05:58] VITALS: BP 170/73
[2017-06-05] MEDS: risperiDONE 0.5 MG TABLET. PO SCH ×2 (08:13→20:15)
[2017-06-05] MEDS: amLODIPine BESYLATE 10 MG TABLET PO SCH (08:13)
[2017-06-05] MEDS: hydroCHLOROthiazide 25 MG TABLET PO SCH (08:13)
[2017-06-05] MEDS: buPROPion XL 300 MG TAB.ER.24H. PO SCH (08:13)
[2017-06-05 10:30] LABS: BASO # 0.1 x10^3/uL (0.0-0.2); BASO % 1 % (0-3); EOS # 0.4 x10^3/uL (0.0-0.7); EOS % 5 % (0-3); HEMATOCRIT 35.2 % (36.0-47.0); LYMPH # 1.6 x10^3/uL (1.0-4.8); LYMPH % 19 % (24-48); MEAN CORPUSCULAR HEMOGLOBIN 32 pg (25-35); MEAN CORPUSCULAR HGB CONC 34 g/dL (31-37); MEAN CORPUSCULAR VOLUME 93 fL (79-100); MONO # 1.3 x10^3/uL (0.0-1.1); MONO % 16 % (0-9); NEUT # 4.8 x10^3uL (1.8-7.7); NEUT % 59 % (31-73); PLATELET COUNT 246 x10^3/uL (140-400); RED BLOOD COUNT 3.79 x10^6/uL (3.50-5.40); RED CELL DISTRIBUTION WIDTH 13.7 % (11.5-14.5); WHITE BLOOD COUNT 8.1 x10^3/uL (4.0-11.0)
[2017-06-05 10:43] LABS: ALBUMIN 2.9 g/dL (3.4-5.0); ALBUMIN/GLOBULIN RATIO 0.8 (1.0-1.7); CALCIUM 8.9 mg/dL (8.5-10.1); CREATININE 0.7 mg/dL (0.6-1.0); GFR 80.3; POTASSIUM 3.1 mmol/L (3.5-5.1); TOTAL BILIRUBIN 0.4 mg/dL (0.2-1.0); TOTAL PROTEIN 6.7 g/dL (6.4-8.2)
[2017-06-05] MEDS: FUROSEMIDE 40 MG TABLET PO SCH (10:55)
[2017-06-05] MEDS ORDERED: POTASSIUM CHLORIDE 20 MEQ TABLET.ER. PO ONE (14:30)
[2017-06-05 16:36] VITALS: BP 172/78
[2017-06-05] MEDS: MIRTAZAPINE 7.5 MG TABLET. PO SCH (20:14)
[2017-06-05] MEDS: DIVALPROEX 125 MG CAP.SPRINK PO SCH (20:15)
[2017-06-05] MEDS: DONEPEZIL HCL 5 MG TABLET. PO SCH (20:15)
--- NOTE | 2017-06-05 20:58 | PDOC ---
Exam Chemo Demential Exam: Chemo Note: Please also refer to the separate dictated note~for this date of service dictated separately.~Patient seen individually. Discussed the patient with Nursing staff reviewed the chart.~Reviewed interim history and current functioning. Reviewed vital signs,~Labs/ Radiology~and current medications noted below. Continue current treatment with the changes noted in the dictated addendum note Assessment: Vital Signs: Vital Signs Date Time Temp Pulse Resp B/P (MAP) Pulse Ox O2 Delivery O2 Flow Rate FiO2 06/05/17 16:36 98.0 80 18 172/78 (109) 95 06/01/17 16:18 Room Air I&O Intake and Output 06/06/17 07:00 Intake Total 840 ml Balance 840 ml Intake Oral 840 ml Labs: Laboratory Tests Test 06/05/17 10:23 White Blood Count 8.1 x10^3/uL (4.0-11.0) Red Blood Count 3.79 x10^6/uL (3.50-5.40) Hemoglobin 12.0 g/dL (12.0-15.5) Hematocrit 35.2 % (36.0-47.0) L Mean Corpuscular Volume 93 fL (79-100) Mean Corpuscular Hemoglobin 32 pg (25-35) Mean Corpuscular Hemoglobin Concent 34 g/dL (31-37) Red Cell Distribution Width 13.7 % (11.5-14.5) Platelet Count 246 x10^3/uL (140-400) Neutrophils (%) (Auto) 59 % (31-73) Lymphocytes (%) (Auto) 19 % (24-48) L Monocytes (%) (Auto) 16 % (0-9) H Eosinophils (%) (Auto) 5 % (0-3) H Basophils (%) (Auto) 1 % (0-3) Neutrophils # (Auto) 4.8 x10^3uL (1.8-7.7) Lymphocytes # (Auto) 1.6 x10^3/uL (1.0-4.8) Monocytes # (Auto) 1.3 x10^3/uL (0.0-1.1) H Eosinophils # (Auto) 0.4 x10^3/uL (0.0-0.7) Basophils # (Auto) 0.1 x10^3/uL (0.0-0.2) Sodium Level 142 mmol/L (136-145) Potassium Level 3.1 mmol/L (3.5-5.1) L Chloride Level 104 mmol/L (98-107) Carbon Dioxide Level 33 mmol/L (21-32) H Anion Gap 5 (6-14) L Blood Urea Nitrogen 18 mg/dL (7-20) Creatinine 0.7 mg/dL (0.6-1.0) Estimated GFR (Cockcroft-Gault) 80.3 BUN/Creatinine Ratio 26 (6-20) H Glucose Level 103 mg/dL (70-99) H Calcium Level 8.9 mg/dL (8.5-10.1) Magnesium Level 2.0 mg/dL (1.8-2.4) Total Bilirubin 0.4 mg/dL (0.2-1.0) Aspartate Amino Transferase (AST) 27 U/L (15-37) Alanine Aminotransferase (ALT) 41 U/L (14-59) Alkaline Phosphatase 128 U/L (46-116) H Total Protein 6.7 g/dL (6.4-8.2) Albumin 2.9 g/dL (3.4-5.0) L Albumin/Globulin Ratio 0.8 (1.0-1.7) L Current Medications: Meds: Current Medications Amlodipine Besylate (Norvasc) 10 mg DAILY PO Last administered on 06/05/17 08 :13; Start 05/25/17 at 09:00 Donepezil HCl (Aricept) 5 mg HS PO Last administered on 06/05/17 20:15; Start 05/24/17 at 21:00 Risperidone (RisperDAL) 0.25 mg BID PO Last administered on 05/25/17 08:13; Start 05/24/17 at 21:00; Stop 05/25/17 at 14:17; Status DC Acetaminophen (Tylenol) 650 mg PRN Q6HRS PRN PO PAIN / TEMP; Start 05/24/17 at 18:45 Multi-Ingredient Ointment (Analgesic [place]) 1 shell PRN QID PRN TP MUSCLE PAIN; Start 05/24/17 at 18:45 Al Hydroxide/Mg Hydroxide (Mylanta Plus Xs) 15 ml PRN AFTMEALHC PRN PO DYSPEPSIA; Start 05/24/17 at 18:45 Magnesium Hydroxide (Milk Of Magnesia) 2,400 mg PRN QHS PRN PO CONSTIPATION; Start 05/24/17 at 18:45 Risperidone (RisperDAL) 0.25 mg DAILY PO Last administered on 05/26/17 09:45 ; Start 05/26/17 at 09:00; Stop 05/26/17 at 18:25; Status DC Risperidone (RisperDAL) 0.5 mg HS PO Last administered on 05/25/17 19:46; Start 05/25/17 at 21:00; Stop 05/26/17 at 18:25; Status DC Sertraline HCl (Zoloft) 25 mg DAILY PO Last administered on 05/27/17 08:16; Start 05/26/17 at 09:00; Stop 05/27/17 at 18:38; Status DC Vitamin D (Vitamin D3) 50,000 unit WEEKLY PO Last administered on 06/02/17 07 :41; Start 05/26/17 at 16:00 Risperidone (RisperDAL) 0.5 mg BID PO Last administered on 06/05/17 20:15; Start 05/26/17 at 21:00 Sertraline HCl (Zoloft) 50 mg DAILY PO Last administered on 06/02/17 07:40; Start 05/28/17 at 09:00; Stop 06/02/17 at 14:58; Status DC Divalproex Sodium (Depakote Sprinkles) 500 mg HS PO Last administered on 20:31; Start 05/28/17 at 21:00; Stop 05/30/17 at 21:43; Status DC Mirtazapine (Remeron) 7.5 mg QHS PO Last administered on 06/05/17 20:14; Start 05/28/17 at 21:00 Trazodone HCl (Desyrel) 50 mg PRN QHS PRN PO Insomnia Last administered on 22:12; Start 05/28/17 at 20:15; Status Future hold Olanzapine (ZyPREXA ZYDIS) 2.5 mg PRN Q2HR PRN PO Anxiety/ Agitation Last administered on 05/28/17 22:13; Start 05/28/17 at 20:15 Divalproex Sodium (Depakote Sprinkles) 500 mg HS PO Last administered on 21:49; Start 05/30/17 at 22:00; Stop 05/31/17 at 19:12; Status DC Divalproex Sodium (Depakote Sprinkles) 250 mg HS PO Last administered on 20:15; Start 05/31/17 at 21:00 Divalproex Sodium (Depakote Sprinkles) 250 mg HS PO ; Start 05/31/17 at 21:00; Stop 05/31/17 at 21:00; Status DC Bupropion HCl (Wellbutrin Xl) 150 mg DAILY PO ; Start 06/03/17 at 09:00; Stop 06/03/17 at 09:00; Status DC Bupropion HCl (Wellbutrin Xl) 150 mg DAILY PO Last administered on 06/03/17 07:47; Start 06/03/17 at 09:00; Stop 06/04/17 at 08:31; Status DC Bupropion HCl (Wellbutrin Xl) 300 mg DAILY PO Last administered on 06/05/17 08:13; Start 06/04/17 at 09:00 Hydrochlorothiazide (Hydrodiuril) 25 mg DAILY PO Last administered on 08:13; Start 06/04/17 at 09:00; Stop 06/05/17 at 10:14; Status DC Clonidine HCl (Catapres) 0.1 mg 1X ONCE PO Last administered on 06/03/17 18: 29; Start 06/03/17 at 17:15; Stop 06/03/17 at 17:16; Status DC Furosemide (Lasix) 40 mg DAILY PO Last administered on 06/05/17 10:55; Start 06/05/17 at 10:30 Levothyroxine Sodium (Synthroid) 25 mcg DAILY06 PO ; Start 06/06/17 at 06:00 Potassium Chloride (Klor-Con) 40 meq 1X ONCE PO Last administered on 15:34; Start 06/05/17 at 14:30; Stop 06/05/17 at 14:31; Status DC Potassium Chloride (Klor-Con) 40 meq DAILYWBKFT PO ; Start 06/06/17 at 08:00 Active Scripts Active Reported Risperidone 0.5 Mg Tablet 0.25 Mg PO BID Aricept (Donepezil Hcl) 5 Mg Tablet 5 Mg PO HS Amlodipine Besylate 10 Mg Tablet 10 Mg PO DAILY Diagnosis: Problems: (1) Alzheimer's dementia (2) Anxiety disorder (3) Bipolar 1 disorder, manic, moderate (4) Dementia in Alzheimer's disease with delirium (5) Major neurocognitive disorder, due to vascular disease, with behavioral disturbance, mild (6) Schizoaffective disorder, bipolar type (7) Vascular dementia with behavior disturbance (8) Impulse control disorder SCOTT OLSON MD Jun 05, 2017 20:58
--- NOTE | 2017-06-06 04:21 | PN ---
DATE: 06/04/2017 PSYCHIATRIC PROGRESS NOTE This late entry 06/04/2017 covers elements not covered in my initial note of 06/04/2017. SUBJECTIVE: I met with the patient evening of 06/04/2017, staffed at a treatment team meeting with the entire team morning of 06/04/2017. Overall the patient is sleeping well, takes his medications whole, confused, otherwise pleasant, less psychotic. REVIEW OF SYSTEMS: No CV, , pulmonary, eye, ENT system symptoms on review. Reliability poor. MENTAL STATUS EXAM: Oriented to herself. Insight, judgment, recent and remote memory, attention, concentration, fund of knowledge poor, consistent with her diagnosis. She is not very verbal, often responses monosyllabic with latency evident. Overall, she is more awake; however, less psychotic. LABORATORIES: Reviewed. IMPRESSION: Unchanged from initial note. PLAN: Continue current psychotropics mentioned in my initial note including Wellbutrin, which was increased to 300 mg in the morning. Valproic acid level is subtherapeutic at 42 on Depakote Sprinkles 250 mg at bedtime, but on the 500 mg she was over sedated and we will avoid it. Review drug interactions, risk/benefit ratio favors no further change for now. SCOTT OLSON MD DR: JAZZMINE/dennis JOB#: [id number] / [id number]
[2017-06-06] MEDS: LEVOTHYROXINE 25 MCG TABLET. PO SCH (05:13)
[2017-06-06 06:01] VITALS: BP 136/65
[2017-06-06 06:14] LABS: CALCIUM 8.8 mg/dL (8.5-10.1); CREATININE 0.7 mg/dL (0.6-1.0); GFR 80.3; POTASSIUM 3.8 mmol/L (3.5-5.1)
[2017-06-06] MEDS: POTASSIUM CHLORIDE 10 MEQ TABLET.ER. PO SCH (08:22)
[2017-06-06] MEDS: amLODIPine BESYLATE 10 MG TABLET PO SCH (08:22)
[2017-06-06] MEDS: FUROSEMIDE 40 MG TABLET PO SCH (08:22)
[2017-06-06] MEDS: buPROPion XL 300 MG TAB.ER.24H. PO SCH (08:23)
[2017-06-06] MEDS: risperiDONE 0.5 MG TABLET. PO SCH ×2 (08:23→19:55)
[2017-06-06 16:30] VITALS: BP 154/74
--- NOTE | 2017-06-06 18:54 | PN ---
DATE: 06/05/2017 PSYCHIATRIC PROGRESS NOTE This late entry 06/05/2017 covers elements not covered in my initial note of 06/05/2017. I met with the patient in the evening of 06/05/2017. Overall, the patient has done better, more awake. She had some puffiness of the face, started on Lasix by Dr. Cardona, doing better with that. She certainly remains confused. REVIEW OF SYSTEMS: No CV, , pulmonary, eye, ENT system symptoms on review. Reliability poor. MENTAL STATUS EXAM: Oriented to herself. Insight, judgment, recent and remote memory, attention, concentration, fund of knowledge poor, consistent with her diagnosis mentioned in my initial note. LABORATORY DATA: Reviewed. PLAN: Continue current psychotropics, reviewed drug interactions, risk/benefit ratio favors no further change. MAN Nataly OLSON MD DR: JAZZMINE/dennis JOB#: [id number] / [id number]
[2017-06-06] MEDS: MIRTAZAPINE 7.5 MG TABLET. PO SCH (19:54)
[2017-06-06] MEDS: DONEPEZIL HCL 5 MG TABLET. PO SCH (19:55)
--- NOTE | 2017-06-06 22:02 | PDOC ---
Exam Chemo Demential Exam: Chemo Note: Please also refer to the separate dictated note~for this date of service dictated separately.~Patient seen individually. Discussed the patient with Nursing staff reviewed the chart.~Reviewed interim history and current functioning. Reviewed vital signs,~Labs/ Radiology~and current medications noted below. Continue current treatment with the changes noted in the dictated addendum note Assessment: Vital Signs: Vital Signs Date Time Temp Pulse Resp B/P (MAP) Pulse Ox O2 Delivery O2 Flow Rate FiO2 06/06/17 16:30 98.4 70 20 154/74 (100) 94 06/06/17 06:01 Room Air I&O Intake and Output 06/07/17 07:00 Intake Total 1320 ml Balance 1320 ml Intake Oral 1320 ml Labs: Laboratory Tests Test 06/06/17 05:57 Sodium Level 142 mmol/L (136-145) Potassium Level 3.8 mmol/L (3.5-5.1) Chloride Level 105 mmol/L (98-107) Carbon Dioxide Level 30 mmol/L (21-32) Anion Gap 7 (6-14) Blood Urea Nitrogen 19 mg/dL (7-20) Creatinine 0.7 mg/dL (0.6-1.0) Estimated GFR (Cockcroft-Gault) 80.3 Glucose Level 89 mg/dL (70-99) Calcium Level 8.8 mg/dL (8.5-10.1) Magnesium Level 2.0 mg/dL (1.8-2.4) Current Medications: Meds: Current Medications Amlodipine Besylate (Norvasc) 10 mg DAILY PO Last administered on 06/06/17 08 :22; Start 05/25/17 at 09:00 Donepezil HCl (Aricept) 5 mg HS PO Last administered on 06/06/17 19:55; Start 05/24/17 at 21:00 Risperidone (RisperDAL) 0.25 mg BID PO Last administered on 05/25/17 08:13; Start 05/24/17 at 21:00; Stop 05/25/17 at 14:17; Status DC Acetaminophen (Tylenol) 650 mg PRN Q6HRS PRN PO PAIN / TEMP; Start 05/24/17 at 18:45 Multi-Ingredient Ointment (Analgesic [place]) 1 shell PRN QID PRN TP MUSCLE PAIN; Start 05/24/17 at 18:45 Al Hydroxide/Mg Hydroxide (Mylanta Plus Xs) 15 ml PRN AFTMEALHC PRN PO DYSPEPSIA; Start 05/24/17 at 18:45 Magnesium Hydroxide (Milk Of Magnesia) 2,400 mg PRN QHS PRN PO CONSTIPATION; Start 05/24/17 at 18:45 Risperidone (RisperDAL) 0.25 mg DAILY PO Last administered on 05/26/17 09:45 ; Start 05/26/17 at 09:00; Stop 05/26/17 at 18:25; Status DC Risperidone (RisperDAL) 0.5 mg HS PO Last administered on 05/25/17 19:46; Start 05/25/17 at 21:00; Stop 05/26/17 at 18:25; Status DC Sertraline HCl (Zoloft) 25 mg DAILY PO Last administered on 05/27/17 08:16; Start 05/26/17 at 09:00; Stop 05/27/17 at 18:38; Status DC Vitamin D (Vitamin D3) 50,000 unit WEEKLY PO Last administered on 06/02/17 07 :41; Start 05/26/17 at 16:00 Risperidone (RisperDAL) 0.5 mg BID PO Last administered on 06/06/17 19:55; Start 05/26/17 at 21:00 Sertraline HCl (Zoloft) 50 mg DAILY PO Last administered on 06/02/17 07:40; Start 05/28/17 at 09:00; Stop 06/02/17 at 14:58; Status DC Divalproex Sodium (Depakote Sprinkles) 500 mg HS PO Last administered on 20:31; Start 05/28/17 at 21:00; Stop 05/30/17 at 21:43; Status DC Mirtazapine (Remeron) 7.5 mg QHS PO Last administered on 06/06/17 19:54; Start 05/28/17 at 21:00 Trazodone HCl (Desyrel) 50 mg PRN QHS PRN PO Insomnia Last administered on 22:12; Start 05/28/17 at 20:15; Status Future hold Olanzapine (ZyPREXA ZYDIS) 2.5 mg PRN Q2HR PRN PO Anxiety/ Agitation Last administered on 05/28/17 22:13; Start 05/28/17 at 20:15 Divalproex Sodium (Depakote Sprinkles) 500 mg HS PO Last administered on 21:49; Start 05/30/17 at 22:00; Stop 05/31/17 at 19:12; Status DC Divalproex Sodium (Depakote Sprinkles) 250 mg HS PO Last administered on 20:15; Start 05/31/17 at 21:00; Stop 06/06/17 at 11:41; Status DC Divalproex Sodium (Depakote Sprinkles) 250 mg HS PO ; Start 05/31/17 at 21:00; Stop 05/31/17 at 21:00; Status DC Bupropion HCl (Wellbutrin Xl) 150 mg DAILY PO ; Start 06/03/17 at 09:00; Stop 06/03/17 at 09:00; Status DC Bupropion HCl (Wellbutrin Xl) 150 mg DAILY PO Last administered on 06/03/17 07:47; Start 06/03/17 at 09:00; Stop 06/04/17 at 08:31; Status DC Bupropion HCl (Wellbutrin Xl) 300 mg DAILY PO Last administered on 06/06/17 08:23; Start 06/04/17 at 09:00 Hydrochlorothiazide (Hydrodiuril) 25 mg DAILY PO Last administered on 08:13; Start 06/04/17 at 09:00; Stop 06/05/17 at 10:14; Status DC Clonidine HCl (Catapres) 0.1 mg 1X ONCE PO Last administered on 06/03/17 18: 29; Start 06/03/17 at 17:15; Stop 06/03/17 at 17:16; Status DC Furosemide (Lasix) 40 mg DAILY PO Last administered on 06/06/17 08:22; Start 06/05/17 at 10:30 Levothyroxine Sodium (Synthroid) 25 mcg DAILY06 PO Last administered on 05:13; Start 06/06/17 at 06:00 Potassium Chloride (Klor-Con) 40 meq 1X ONCE PO Last administered on 15:34; Start 06/05/17 at 14:30; Stop 06/05/17 at 14:31; Status DC Potassium Chloride (Klor-Con) 40 meq DAILYWBKFT PO Last administered on 08:22; Start 06/06/17 at 08:00 Active Scripts Active Reported Risperidone 0.5 Mg Tablet 0.25 Mg PO BID Aricept (Donepezil Hcl) 5 Mg Tablet 5 Mg PO HS Amlodipine Besylate 10 Mg Tablet 10 Mg PO DAILY Diagnosis: Problems: (1) Alzheimer's dementia (2) Anxiety disorder (3) Bipolar 1 disorder, manic, moderate (4) Dementia in Alzheimer's disease with delirium (5) Major neurocognitive disorder, due to vascular disease, with behavioral disturbance, mild (6) Schizoaffective disorder, bipolar type (7) Vascular dementia with behavior disturbance (8) Impulse control disorder SCOTT OLSON MD Jun 06, 2017 22:02
[2017-06-07] MEDS: LEVOTHYROXINE 25 MCG TABLET. PO SCH (05:14)
[2017-06-07 06:07] VITALS: BP 166/65
[2017-06-07] MEDS: POTASSIUM CHLORIDE 10 MEQ TABLET.ER. PO SCH (07:52)
[2017-06-07] MEDS: FUROSEMIDE 40 MG TABLET PO SCH (07:52)
[2017-06-07] MEDS: buPROPion XL 300 MG TAB.ER.24H. PO SCH (07:53)
[2017-06-07] MEDS: risperiDONE 0.5 MG TABLET. PO SCH ×2 (07:53→19:16)
[2017-06-07] MEDS: amLODIPine BESYLATE 10 MG TABLET PO SCH (07:53)
[2017-06-07 16:12] VITALS: BP 155/79
[2017-06-07] MEDS: DONEPEZIL HCL 5 MG TABLET. PO SCH (19:16)
[2017-06-07] MEDS: MIRTAZAPINE 7.5 MG TABLET. PO SCH (19:16)
[2017-06-08] MEDS: LEVOTHYROXINE 25 MCG TABLET. PO SCH (05:24)
[2017-06-08 06:11] VITALS: BP 186/74
[2017-06-08] MEDS: POTASSIUM CHLORIDE 10 MEQ TABLET.ER. PO SCH (07:30)
[2017-06-08] MEDS: FUROSEMIDE 40 MG TABLET PO SCH (07:31)
[2017-06-08] MEDS: risperiDONE 0.5 MG TABLET. PO SCH ×2 (07:32→19:26)
[2017-06-08] MEDS: amLODIPine BESYLATE 10 MG TABLET PO SCH (07:32)
[2017-06-08] MEDS: buPROPion XL 300 MG TAB.ER.24H. PO SCH (07:32)
--- NOTE | 2017-06-08 11:35 | PN ---
DATE: 06/06/2017 This note covers the elements not covered in my initial note of 06/06/2017. SUBJECTIVE: Overall, the patient is more awake, but gait is unsteady and nursing staff wondered whether the Depakote is contributing to it. We will go ahead and stop the Depakote. REVIEW OF SYSTEMS: No CV, , pulmonary, eye, ENT system symptoms on review. Reliability poor. MENTAL STATUS EXAM: Oriented to herself. Insight, judgment, recent and remote memory, attention, concentration, fund of knowledge poor, consistent with her diagnosis. She is not very verbal. LABORATORY DATA: Reviewed. IMPRESSION: Unchanged from initial note. PLAN: Continue current psychotropics. Review drug interaction. Risk/benefit ratio favors no further change for now. MAN Nataly OLSON MD DR: JAZZMINE/dennis JOB#: [id number] / [id number]
--- NOTE | 2017-06-08 11:38 | PN ---
DATE: 06/05/2017 REASON FOR VISIT: Puffy eyes. HISTORY OF PRESENT ILLNESS: An 81-year-old [facility]. Staff has noticed very swollen, edematous eyes, and without drainage. She is on multiple medications, but no diuretics and medical problems include hypertension, UTI, hypokalemia, history of cellulitis. OBJECTIVE: VITAL SIGNS: Blood pressure 170/73, pulse 85, temperature 97.4, pulse ox 97% on room air. Her height 62 inches, weight 174.44 pounds, this is up a couple of pounds since her admission. HEENT: Eyes, upper lids and lower lids very puffy. The eye itself is clear without drainage. Her tongue was moist. NECK: Supple. LUNGS: Few crackles. CARDIOVASCULAR: Regular rhythm and rate. EXTREMITIES: She has compression stockings, may be trace of edema. LABORATORY DATA: Noted that her TSH is slightly elevated at 4.733, potassium is 3.1. ASSESSMENT: 1. Edematous eyes, questionable , must consider hypothyroidism 2. Elevated TSH, subclinical hypothyroidism. 3. Slight weight gain. 4. Hypokalemia. PLAN: Start low dose Lasix and see if this does help resolve the swelling low dose of levothyroxine. Noted that her kidney function is good, and that her eyes were less puffy as the day went on, but still puffy. GILBERTO ANDUJAR DO DR: SEA/dennis JOB#: [id number] / [id number]
[2017-06-08 16:14] VITALS: BP 143/99
[2017-06-08] MEDS: MIRTAZAPINE 7.5 MG TABLET. PO SCH (19:26)
[2017-06-08] MEDS: DONEPEZIL HCL 5 MG TABLET. PO SCH (19:26)
[2017-06-08] MEDS: traZODone 50 MG TABLET. PO PRN (21:36)
[2017-06-09] MEDS: LEVOTHYROXINE 25 MCG TABLET. PO SCH (06:13)
[2017-06-09 06:40] VITALS: BP 156/66
[2017-06-09] MEDS: buPROPion XL 300 MG TAB.ER.24H. PO SCH (08:07)
[2017-06-09] MEDS: POTASSIUM CHLORIDE 10 MEQ TABLET.ER. PO SCH (08:07)
[2017-06-09] MEDS: FUROSEMIDE 40 MG TABLET PO SCH (08:08)
[2017-06-09] MEDS: risperiDONE 0.5 MG TABLET. PO SCH ×2 (08:08→19:43)
[2017-06-09] MEDS: amLODIPine BESYLATE 10 MG TABLET PO SCH (08:08)
[2017-06-09] MEDS: CHOLECALCIFEROL (VITAMIN D3) 50,000 UNIT CAPSULE PO SCH (08:10)
--- NOTE | 2017-06-09 10:21 | PN ---
DATE: 06/08/2017 SUBJECTIVE: The patient was seen today, met with the staff, chart reviewed. I am covering for Dr. Park. Staff reports the patient apparently had a REACTION TO DEPAKOTE left face swell up and was discontinued. The patient is still having difficulty with concentration and thinking, poor eye contact. The patient also complains of feeling physically tired and weak. The patient has been diagnosed with dementia, also appears to have some symptoms of schizophrenia because of her behavior. OBSERVATION: VITAL SIGNS: Temperature 97.8, blood pressure 186/74, pulse 65, respirations 16, O2 sat 93%. Slept about 7-1/2 hours last night. MEDICATIONS: Reviewed. Currently on Risperdal, Wellbutrin, Aricept, Remeron, trazodone, Zyprexa Zydis as a p.r.n. LABORATORY DATA: The patient's labs reviewed. ASSESSMENT: Schizophrenia, chronic, undifferentiated; dementia, vascular with behavior problems and delusions. PLAN: To continue with the treatment. ROBINSON LESLIE MD DR: EH/dennis JOB#: [id number] / [id number]
[2017-06-09 15:33] VITALS: BP 134/62
[2017-06-09] MEDS: DONEPEZIL HCL 5 MG TABLET. PO SCH (19:43)
[2017-06-09] MEDS: traZODone 50 MG TABLET. PO PRN (19:45)
--- NOTE | 2017-06-10 01:47 | PN ---
DATE: 06/09/2017 SUBJECTIVE: The patient was seen today, met with the staff, chart reviewed. The patient's behavior remains the same, some improvement. The patient has marked psychomotor retardation, slow to respond to questions. The patient also complaining of weak and tired, also she has problems processing information. OBJECTIVE: VITAL SIGNS: Temperature 98.0, blood pressure 156/66, pulse 69, respirations 18, O2 sat 91%. Slept about 6 hours last night. CURRENT MEDICATIONS: Reviewed. Currently on Wellbutrin-XL 300 mg daily, Risperdal 0.5 mg b.i.d. and Remeron 7.5 mg at night. She is also on p.r.n. trazodone and Zyprexa. ASSESSMENT: Schizophrenia, chronic, undifferentiated, dementia, most likely vascular with behavioral problems and delusions. PLAN: Continue with the medication except Remeron to be discontinued because of sedation. Continue with the treatment. ROBINSON LESLIE MD DR: EH/dnenis JOB#: [id number] / [id number]
[2017-06-10] MEDS: LEVOTHYROXINE 25 MCG TABLET. PO SCH (05:06)
[2017-06-10 06:08] VITALS: BP 165/80
[2017-06-10] MEDS: POTASSIUM CHLORIDE 10 MEQ TABLET.ER. PO SCH (10:14)
[2017-06-10] MEDS: buPROPion XL 300 MG TAB.ER.24H. PO SCH (10:14)
[2017-06-10] MEDS: amLODIPine BESYLATE 10 MG TABLET PO SCH (10:15)
[2017-06-10] MEDS: risperiDONE 0.5 MG TABLET. PO SCH ×2 (10:15→20:22)
[2017-06-10] MEDS: FUROSEMIDE 40 MG TABLET PO SCH (10:15)
[2017-06-10 16:17] VITALS: BP 158/71
[2017-06-10] MEDS: DONEPEZIL HCL 5 MG TABLET. PO SCH (20:22)
--- NOTE | 2017-06-11 04:35 | PN ---
DATE: 06/10/2017 SUBJECTIVE: The patient was seen today, met with the staff, chart reviewed. The patient continues to be restless, agitated and also disorganized thinking. The patient is not able to concentrate. The patient is not able to comprehend the surroundings, increased confusion and paranoia. OBSERVATION: VITAL SIGNS: Temperature 97.4, blood pressure 165/80, pulse 63, respirations 16, O2 sat 94%. Slept about 7 hours last night. The patient has been off the Depakote because apparently she had some reaction to it. MEDICATIONS: The patient's current medications include Wellbutrin 300 mg daily, Risperdal 0.5 mg b.i.d. and Remeron 7.5 mg at night. ASSESSMENT: Schizophrenia, chronic, undifferentiated; dementia, most likely vascular with behavioral problems and delusions. PLAN: To continue with the treatment. ROBINSON LESLIE MD DR: EH/dennis JOB#: [id number] / [id number]
[2017-06-11] MEDS: LEVOTHYROXINE 25 MCG TABLET. PO SCH (05:36)
[2017-06-11 06:00] VITALS: BP 138/78
[2017-06-11] MEDS: buPROPion XL 300 MG TAB.ER.24H. PO SCH (07:27)
[2017-06-11] MEDS: POTASSIUM CHLORIDE 10 MEQ TABLET.ER. PO SCH (07:27)
[2017-06-11] MEDS: amLODIPine BESYLATE 10 MG TABLET PO SCH (07:27)
[2017-06-11] MEDS: risperiDONE 0.5 MG TABLET. PO SCH (07:28)
[2017-06-11] MEDS: FUROSEMIDE 40 MG TABLET PO SCH (07:28)
[2017-06-11 15:37] VITALS: BP 157/71
[2017-06-11] MEDS: DONEPEZIL HCL 5 MG TABLET. PO SCH (20:12)
[2017-06-11] MEDS: risperiDONE 2 MG TABLET. PO SCH (20:15)
[2017-06-12] MEDS: LEVOTHYROXINE 25 MCG TABLET. PO SCH (05:21)
[2017-06-12 05:48] VITALS: BP 157/63
[2017-06-12] MEDS: amLODIPine BESYLATE 10 MG TABLET PO SCH (08:10)
[2017-06-12] MEDS: buPROPion XL 300 MG TAB.ER.24H. PO SCH (08:10)
[2017-06-12] MEDS: POTASSIUM CHLORIDE 10 MEQ TABLET.ER. PO SCH (08:11)
[2017-06-12] MEDS: FUROSEMIDE 40 MG TABLET PO SCH (08:11)
[2017-06-12] MEDS: risperiDONE 1 MG TABLET. PO SCH (08:12)
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
[2017-06-12 09:49] LABS: BASO # 0.1 x10^3/uL (0.0-0.2); BASO % 2 % (0-3); EOS # 0.4 x10^3/uL (0.0-0.7); EOS % 7 % (0-3); HEMATOCRIT 35.8 % (36.0-47.0); LYMPH # 1.5 x10^3/uL (1.0-4.8); LYMPH % 22 % (24-48); MEAN CORPUSCULAR HEMOGLOBIN 31 pg (25-35); MEAN CORPUSCULAR HGB CONC 34 g/dL (31-37); MEAN CORPUSCULAR VOLUME 94 fL (79-100); MONO # 0.9 x10^3/uL (0.0-1.1); MONO % 13 % (0-9); NEUT # 3.9 x10^3uL (1.8-7.7); NEUT % 57 % (31-73); PLATELET COUNT 338 x10^3/uL (140-400); RED BLOOD COUNT 3.82 x10^6/uL (3.50-5.40); RED CELL DISTRIBUTION WIDTH 13.7 % (11.5-14.5); WHITE BLOOD COUNT 6.8 x10^3/uL (4.0-11.0)
[2017-06-12 09:57] LABS: ALBUMIN 3.1 g/dL (3.4-5.0); ALBUMIN/GLOBULIN RATIO 0.8 (1.0-1.7); CALCIUM 9.1 mg/dL (8.5-10.1); CREATININE 0.8 mg/dL (0.6-1.0); GFR 68.8; MAGNESIUM 2.2 mg/dL (1.8-2.4); POTASSIUM 4.1 mmol/L (3.5-5.1); TOTAL BILIRUBIN 0.3 mg/dL (0.2-1.0)
[2017-06-12 16:39] VITALS: BP 180/63
[2017-06-12] MEDS: risperiDONE 2 MG TABLET. PO SCH (19:14)
[2017-06-12] MEDS: DONEPEZIL HCL 5 MG TABLET. PO SCH (20:10)
[2017-06-13] MEDS: LEVOTHYROXINE 25 MCG TABLET. PO SCH (05:48)
[2017-06-13 06:00] VITALS: BP 176/69
[2017-06-13] MEDS: POTASSIUM CHLORIDE 10 MEQ TABLET.ER. PO SCH (07:55)
[2017-06-13] MEDS: amLODIPine BESYLATE 10 MG TABLET PO SCH (07:55)
[2017-06-13] MEDS: FUROSEMIDE 40 MG TABLET PO SCH (07:55)
[2017-06-13] MEDS: buPROPion XL 300 MG TAB.ER.24H. PO SCH (07:56)
[2017-06-13] MEDS: risperiDONE 1 MG TABLET. PO SCH (09:00)
--- NOTE | 2017-06-13 11:40 | PN ---
DATE: 06/12/2017 SUBJECTIVE: The patient was seen today, met with the staff, chart reviewed. Staff reports that the patient has been sleeping most of the day, somewhat sedated with the Risperdal, which was increased. The patient, however, is not having any side effects. The patient's appetite is fair. OBSERVATION: VITAL SIGNS: Stable. The patient is not having any physical complaints. CURRENT MEDICATIONS: Include Risperdal 1 mg daily, 2 mg at night; Wellbutrin 300 mg daily, trazodone 50 mg at night p.r.n. Also, olanzapine 2.5 mg q. 2 hours p.r.n., Aricept 5 mg at night. ASSESSMENT: 1. Schizophrenia, chronic, undifferentiated. 2. Dementia, most likely vascular with behavioral problems and delusions. 3. Consider schizoaffective disorder. PLAN: The patient's Risperdal 1 mg in the morning will be on hold and she will continue on 2 mg at night, reevaluate medications tomorrow. ROBINSON LESLIE MD DR: EH/dennis JOB#: [id number] / [id number]
[2017-06-13 11:42] VITALS: BP 142/71
[2017-06-13 15:57] VITALS: BP 138/70
[2017-06-13] MEDS: DONEPEZIL HCL 5 MG TABLET. PO SCH (19:59)
--- NOTE | 2017-06-14 02:50 | PN ---
DATE: 06/13/2017 SUBJECTIVE: The patient was seen today, met with the staff, chart reviewed. The patient's behavior improved slightly. She is alert, oriented to surroundings, able to make eye contact. She is more animated today. Staff reports no major problems except for cognitive deficits. OBSERVATION: VITAL SIGNS: Temperature 97.9. Blood pressure 176/69, pulse 71, respirations 16, and O2 sat 92%. Slept about 8 hours last night. The patient's appetite improved. MEDICATIONS: The patient's current medications include Risperdal 1 mg daily and 2 mg at night, Wellbutrin-XL 300 mg daily, Aricept 5 mg at night, trazodone 50 mg at night p.r.n. She is also on Zyprexa Zydis 2.5 mg p.r.n. q.2 hours. The patient's Risperdal was held yesterday both morning and at night and apparently the patient was much more alert. The patient apparently having some side effects from the Risperdal including shivers sedation. ASSESSMENT: 1. Schizophrenia, chronic, undifferentiated. 2. Dementia, most likely vascular with behavioral problems with delusions. 3. Consider schizoaffective disorder. PLAN: Discontinue Risperdal. Start on Latuda 40 mg daily. ROBINSON LESLIE MD DR: EH/dennis JOB#: [id number] / [id number]
[2017-06-14] MEDS: LEVOTHYROXINE 25 MCG TABLET. PO SCH (05:39)
[2017-06-14 06:01] VITALS: BP 181/71
[2017-06-14] MEDS: POTASSIUM CHLORIDE 10 MEQ TABLET.ER. PO SCH (07:54)
[2017-06-14] MEDS: FUROSEMIDE 40 MG TABLET PO SCH (07:57)
[2017-06-14] MEDS: LURASIDONE 40 MG TABLET. PO SCH (07:57)
[2017-06-14] MEDS: amLODIPine BESYLATE 10 MG TABLET PO SCH (08:00)
[2017-06-14] MEDS: buPROPion XL 300 MG TAB.ER.24H. PO SCH (08:00)
[2017-06-14 10:32] VITALS: BP 136/65
[2017-06-14 16:52] VITALS: BP 154/71
[2017-06-14] MEDS: DONEPEZIL HCL 5 MG TABLET. PO SCH (19:48)
[2017-06-15] MEDS: traZODone 50 MG TABLET. PO PRN ×2 (01:54→19:59)
[2017-06-15] MEDS: LEVOTHYROXINE 25 MCG TABLET. PO SCH (05:26)
--- NOTE | 2017-06-15 06:14 | PN ---
DATE: 06/14/2017 SUBJECTIVE: The patient was seen today, met with the staff, and chart reviewed. The patient's behavior has improved, still withdrawn, but able to make eye contact, not presented with any major behavior problem, still has episodes of confusion, also marked psychomotor retardation. OBSERVATION: VITAL SIGNS: Temperature 98, blood pressure 181/71, pulse 67, respirations 14, O2 sat 96%. She slept about 6 hours last night. The patient is not having any physical complaints, no falls. CURRENT MEDICATIONS: Include Risperdal 1 mg daily and 2 mg at night. Because of the sedation, the patient's Risperdal was discontinued. The patient is currently on Wellbutrin 300 mg daily, olanzapine 2.5 mg q.2 hours p.r.n., trazodone 50 mg at night p.r.n., Aricept 5 mg daily. ASSESSMENT: 1. Schizophrenia, chronic, undifferentiated. 2. 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 3. ____ schizoaffective disorder. PLAN: We will start on Latuda 40 mg daily. YESI HAUSER MD DR: EH/dennis JOB#: [id number] / [id number]
[2017-06-15 06:28] VITALS: BP 176/74
[2017-06-15] MEDS: buPROPion XL 300 MG TAB.ER.24H. PO SCH (08:38)
[2017-06-15] MEDS: POTASSIUM CHLORIDE 10 MEQ TABLET.ER. PO SCH (08:39)
[2017-06-15] MEDS: FUROSEMIDE 40 MG TABLET PO SCH (08:39)
[2017-06-15] MEDS: amLODIPine BESYLATE 10 MG TABLET PO SCH (08:39)
[2017-06-15] MEDS: LURASIDONE 40 MG TABLET. PO SCH (08:40)
--- NOTE | 2017-06-15 12:59 | PN ---
DATE: 06/14/2017 SUBJECTIVE: The patient was seen today, met with the staff, and chart reviewed. The patient's behavior has improved, still withdrawn, but able to make eye contact, not presented with any major behavior problem, still has episodes of confusion, also marked psychomotor retardation. OBSERVATION: VITAL SIGNS: Temperature 98, blood pressure 181/71, pulse 67, respirations 14, O2 sat 96%. She slept about 6 hours last night. The patient is not having any physical complaints, no falls. CURRENT MEDICATIONS: Include Risperdal 1 mg daily and 2 mg at night. Because of the sedation, the patient's Risperdal was discontinued. The patient is currently on Wellbutrin 300 mg daily, olanzapine 2.5 mg q.2 hours p.r.n., trazodone 50 mg at night p.r.n., Aricept 5 mg daily. ASSESSMENT: 1. Schizophrenia, chronic, undifferentiated. 2. 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 3. ____ schizoaffective disorder. PLAN: We will start on Latuda 40 mg daily. ROBINSON LESLIE MD DR: EH/dennis JOB#: [id number] / [id number]
[2017-06-15 16:06] VITALS: BP 144/73
[2017-06-15] MEDS: DONEPEZIL HCL 5 MG TABLET. PO SCH (19:58)
--- NOTE | 2017-06-15 20:48 | PDOC ---
Exam Chemo Demential Exam: Chemo Note: Please also refer to the separate dictated note~for this date of service dictated separately.~Patient seen individually. Discussed the patient with Nursing staff reviewed the chart.~Reviewed interim history and current functioning. Reviewed vital signs,~Labs/ Radiology~and current medications noted below. Continue current treatment with the changes noted in the dictated addendum note Assessment: Vital Signs: Vital Signs Date Time Temp Pulse Resp B/P (MAP) Pulse Ox O2 Delivery O2 Flow Rate FiO2 06/15/17 16:06 97.3 62 16 144/73 (96) 97 06/15/17 06:28 Room Air I&O Intake and Output 06/16/17 07:00 Intake Total 900 ml Balance 900 ml Intake Oral 900 ml Current Medications: Meds: Current Medications Amlodipine Besylate (Norvasc) 10 mg DAILY PO Last administered on 06/15/17 08 :39; Start 05/25/17 at 09:00 Donepezil HCl (Aricept) 5 mg HS PO Last administered on 06/15/17 19:58; Start 05/24/17 at 21:00 Risperidone (RisperDAL) 0.25 mg BID PO Last administered on 05/25/17 08:13; Start 05/24/17 at 21:00; Stop 05/25/17 at 14:17; Status DC Acetaminophen (Tylenol) 650 mg PRN Q6HRS PRN PO PAIN / TEMP; Start 05/24/17 at 18:45 Multi-Ingredient Ointment (Analgesic [place]) 1 shell PRN QID PRN TP MUSCLE PAIN; Start 05/24/17 at 18:45 Al Hydroxide/Mg Hydroxide (Mylanta Plus Xs) 15 ml PRN AFTMEALHC PRN PO DYSPEPSIA; Start 05/24/17 at 18:45 Magnesium Hydroxide (Milk Of Magnesia) 2,400 mg PRN QHS PRN PO CONSTIPATION; Start 05/24/17 at 18:45 Risperidone (RisperDAL) 0.25 mg DAILY PO Last administered on 05/26/17 09:45 ; Start 05/26/17 at 09:00; Stop 05/26/17 at 18:25; Status DC Risperidone (RisperDAL) 0.5 mg HS PO Last administered on 05/25/17 19:46; Start 05/25/17 at 21:00; Stop 05/26/17 at 18:25; Status DC Sertraline HCl (Zoloft) 25 mg DAILY PO Last administered on 05/27/17 08:16; Start 05/26/17 at 09:00; Stop 05/27/17 at 18:38; Status DC Vitamin D (Vitamin D3) 50,000 unit WEEKLY PO Last administered on 06/09/17 08 :10; Start 05/26/17 at 16:00 Risperidone (RisperDAL) 0.5 mg BID PO Last administered on 06/11/17 07:28; Start 05/26/17 at 21:00; Stop 06/11/17 at 16:27; Status DC Sertraline HCl (Zoloft) 50 mg DAILY PO Last administered on 06/02/17 07:40; Start 05/28/17 at 09:00; Stop 06/02/17 at 14:58; Status DC Divalproex Sodium (Depakote Sprinkles) 500 mg HS PO Last administered on 20:31; Start 05/28/17 at 21:00; Stop 05/30/17 at 21:43; Status DC Mirtazapine (Remeron) 7.5 mg QHS PO Last administered on 06/08/17 19:26; Start 05/28/17 at 21:00; Stop 06/09/17 at 15:52; Status DC Trazodone HCl (Desyrel) 50 mg PRN QHS PRN PO Insomnia Last administered on 19:45; Start 05/28/17 at 20:15; Stop 06/15/17 at 01:51; Status DC Olanzapine (ZyPREXA ZYDIS) 2.5 mg PRN Q2HR PRN PO Anxiety/ Agitation Last administered on 06/09/17 16:27; Start 05/28/17 at 20:15 Divalproex Sodium (Depakote Sprinkles) 500 mg HS PO Last administered on 21:49; Start 05/30/17 at 22:00; Stop 05/31/17 at 19:12; Status DC Divalproex Sodium (Depakote Sprinkles) 250 mg HS PO Last administered on 20:15; Start 05/31/17 at 21:00; Stop 06/06/17 at 11:41; Status DC Divalproex Sodium (Depakote Sprinkles) 250 mg HS PO ; Start 05/31/17 at 21:00; Stop 05/31/17 at 21:00; Status DC Bupropion HCl (Wellbutrin Xl) 150 mg DAILY PO ; Start 06/03/17 at 09:00; Stop 06/03/17 at 09:00; Status DC Bupropion HCl (Wellbutrin Xl) 150 mg DAILY PO Last administered on 06/03/17 07:47; Start 06/03/17 at 09:00; Stop 06/04/17 at 08:31; Status DC Bupropion HCl (Wellbutrin Xl) 300 mg DAILY PO Last administered on 06/15/17 08:38; Start 06/04/17 at 09:00 Hydrochlorothiazide (Hydrodiuril) 25 mg DAILY PO Last administered on 08:13; Start 06/04/17 at 09:00; Stop 06/05/17 at 10:14; Status DC Clonidine HCl (Catapres) 0.1 mg 1X ONCE PO Last administered on 06/03/17 18: 29; Start 06/03/17 at 17:15; Stop 06/03/17 at 17:16; Status DC Furosemide (Lasix) 40 mg DAILY PO Last administered on 06/15/17 08:39; Start 06/05/17 at 10:30 Levothyroxine Sodium (Synthroid) 25 mcg DAILY06 PO Last administered on 05:26; Start 06/06/17 at 06:00 Potassium Chloride (Klor-Con) 40 meq 1X ONCE PO Last administered on 15:34; Start 06/05/17 at 14:30; Stop 06/05/17 at 14:31; Status DC Potassium Chloride (Klor-Con) 40 meq DAILYWBKFT PO Last administered on 08:39; Start 06/06/17 at 08:00 Risperidone (RisperDAL) 1 mg DAILY PO Last administered on 06/12/17 08:12; Start 06/12/17 at 09:00; Stop 06/13/17 at 14:00; Status DC Risperidone (RisperDAL) 2 mg HS PO Last administered on 06/11/17 20:15; Start 06/11/17 at 21:00; Stop 06/13/17 at 14:00; Status DC Trazodone HCl (Desyrel) 50 mg PRN QHS PRN PO Insomnia Last administered on 19:59; Start 06/15/17 at 02:00 Active Scripts Active Reported Risperidone 0.5 Mg Tablet 0.25 Mg PO BID Aricept (Donepezil Hcl) 5 Mg Tablet 5 Mg PO HS Amlodipine Besylate 10 Mg Tablet 10 Mg PO DAILY Diagnosis: Problems: (1) Alzheimer's dementia (2) Anxiety disorder (3) Bipolar 1 disorder, manic, moderate (4) Dementia in Alzheimer's disease with delirium (5) Major neurocognitive disorder, due to vascular disease, with behavioral disturbance, mild (6) Schizoaffective disorder, bipolar type (7) Vascular dementia with behavior disturbance (8) Impulse control disorder SCOTT OLSON MD Jun 15, 2017 20:48
[2017-06-16] MEDS: LEVOTHYROXINE 25 MCG TABLET. PO SCH (05:39)
[2017-06-16 05:56] VITALS: BP 136/58
[2017-06-16] MEDS: POTASSIUM CHLORIDE 10 MEQ TABLET.ER. PO SCH (08:23)
[2017-06-16] MEDS: amLODIPine BESYLATE 10 MG TABLET PO SCH (08:24)
[2017-06-16] MEDS: buPROPion XL 300 MG TAB.ER.24H. PO SCH (08:24)
[2017-06-16] MEDS: FUROSEMIDE 40 MG TABLET PO SCH (08:24)
[2017-06-16] MEDS: LURASIDONE 40 MG TABLET. PO SCH (08:24)
[2017-06-16] MEDS: CHOLECALCIFEROL (VITAMIN D3) 50,000 UNIT CAPSULE PO SCH (08:26)
[2017-06-16 16:16] VITALS: BP 143/75
[2017-06-16] MEDS: DONEPEZIL HCL 5 MG TABLET. PO SCH (19:49)
--- NOTE | 2017-06-16 22:13 | PDOC ---
Exam Chemo Demential Exam: Chemo Note: Please also refer to the separate dictated note~for this date of service dictated separately.~Patient seen individually. Discussed the patient with Nursing staff reviewed the chart.~Reviewed interim history and current functioning. Reviewed vital signs,~Labs/ Radiology~and current medications noted below. Continue current treatment with the changes noted in the dictated addendum note Assessment: Vital Signs: Vital Signs Date Time Temp Pulse Resp B/P (MAP) Pulse Ox O2 Delivery O2 Flow Rate FiO2 06/16/17 16:16 97.4 60 16 143/75 (97) 96 06/15/17 06:28 Room Air I&O Intake and Output 06/17/17 07:00 Intake Total 1320 ml Balance 1320 ml Intake Oral 1320 ml Current Medications: Meds: Current Medications Amlodipine Besylate (Norvasc) 10 mg DAILY PO Last administered on 06/16/17 08 :24; Start 05/25/17 at 09:00 Donepezil HCl (Aricept) 5 mg HS PO Last administered on 06/16/17 19:49; Start 05/24/17 at 21:00 Risperidone (RisperDAL) 0.25 mg BID PO Last administered on 05/25/17 08:13; Start 05/24/17 at 21:00; Stop 05/25/17 at 14:17; Status DC Acetaminophen (Tylenol) 650 mg PRN Q6HRS PRN PO PAIN / TEMP; Start 05/24/17 at 18:45 Multi-Ingredient Ointment (Analgesic [place]) 1 shell PRN QID PRN TP MUSCLE PAIN; Start 05/24/17 at 18:45 Al Hydroxide/Mg Hydroxide (Mylanta Plus Xs) 15 ml PRN AFTMEALHC PRN PO DYSPEPSIA; Start 05/24/17 at 18:45 Magnesium Hydroxide (Milk Of Magnesia) 2,400 mg PRN QHS PRN PO CONSTIPATION; Start 05/24/17 at 18:45 Risperidone (RisperDAL) 0.25 mg DAILY PO Last administered on 05/26/17 09:45 ; Start 05/26/17 at 09:00; Stop 05/26/17 at 18:25; Status DC Risperidone (RisperDAL) 0.5 mg HS PO Last administered on 05/25/17 19:46; Start 05/25/17 at 21:00; Stop 05/26/17 at 18:25; Status DC Sertraline HCl (Zoloft) 25 mg DAILY PO Last administered on 05/27/17 08:16; Start 05/26/17 at 09:00; Stop 05/27/17 at 18:38; Status DC Vitamin D (Vitamin D3) 50,000 unit WEEKLY PO Last administered on 06/16/17 08 :26; Start 05/26/17 at 16:00 Risperidone (RisperDAL) 0.5 mg BID PO Last administered on 06/11/17 07:28; Start 05/26/17 at 21:00; Stop 06/11/17 at 16:27; Status DC Sertraline HCl (Zoloft) 50 mg DAILY PO Last administered on 06/02/17 07:40; Start 05/28/17 at 09:00; Stop 06/02/17 at 14:58; Status DC Divalproex Sodium (Depakote Sprinkles) 500 mg HS PO Last administered on 20:31; Start 05/28/17 at 21:00; Stop 05/30/17 at 21:43; Status DC Mirtazapine (Remeron) 7.5 mg QHS PO Last administered on 06/08/17 19:26; Start 05/28/17 at 21:00; Stop 06/09/17 at 15:52; Status DC Trazodone HCl (Desyrel) 50 mg PRN QHS PRN PO Insomnia Last administered on 19:45; Start 05/28/17 at 20:15; Stop 06/15/17 at 01:51; Status DC Olanzapine (ZyPREXA ZYDIS) 2.5 mg PRN Q2HR PRN PO Anxiety/ Agitation Last administered on 06/09/17 16:27; Start 05/28/17 at 20:15 Divalproex Sodium (Depakote Sprinkles) 500 mg HS PO Last administered on 21:49; Start 05/30/17 at 22:00; Stop 05/31/17 at 19:12; Status DC Divalproex Sodium (Depakote Sprinkles) 250 mg HS PO Last administered on 20:15; Start 05/31/17 at 21:00; Stop 06/06/17 at 11:41; Status DC Divalproex Sodium (Depakote Sprinkles) 250 mg HS PO ; Start 05/31/17 at 21:00; Stop 05/31/17 at 21:00; Status DC Bupropion HCl (Wellbutrin Xl) 150 mg DAILY PO ; Start 06/03/17 at 09:00; Stop 06/03/17 at 09:00; Status DC Bupropion HCl (Wellbutrin Xl) 150 mg DAILY PO Last administered on 06/03/17 07:47; Start 06/03/17 at 09:00; Stop 06/04/17 at 08:31; Status DC Bupropion HCl (Wellbutrin Xl) 300 mg DAILY PO Last administered on 06/16/17 08:24; Start 06/04/17 at 09:00 Hydrochlorothiazide (Hydrodiuril) 25 mg DAILY PO Last administered on 08:13; Start 06/04/17 at 09:00; Stop 06/05/17 at 10:14; Status DC Clonidine HCl (Catapres) 0.1 mg 1X ONCE PO Last administered on 06/03/17 18: 29; Start 06/03/17 at 17:15; Stop 06/03/17 at 17:16; Status DC Furosemide (Lasix) 40 mg DAILY PO Last administered on 06/16/17 08:24; Start 06/05/17 at 10:30 Levothyroxine Sodium (Synthroid) 25 mcg DAILY06 PO Last administered on 05:39; Start 06/06/17 at 06:00 Potassium Chloride (Klor-Con) 40 meq 1X ONCE PO Last administered on 15:34; Start 06/05/17 at 14:30; Stop 06/05/17 at 14:31; Status DC Potassium Chloride (Klor-Con) 40 meq DAILYWBKFT PO Last administered on 08:23; Start 06/06/17 at 08:00 Risperidone (RisperDAL) 1 mg DAILY PO Last administered on 06/12/17 08:12; Start 06/12/17 at 09:00; Stop 06/13/17 at 14:00; Status DC Risperidone (RisperDAL) 2 mg HS PO Last administered on 06/11/17 20:15; Start 06/11/17 at 21:00; Stop 06/13/17 at 14:00; Status DC Trazodone HCl (Desyrel) 50 mg PRN QHS PRN PO Insomnia Last administered on 19:59; Start 06/15/17 at 02:00 Active Scripts Active Reported Risperidone 0.5 Mg Tablet 0.25 Mg PO BID Aricept (Donepezil Hcl) 5 Mg Tablet 5 Mg PO HS Amlodipine Besylate 10 Mg Tablet 10 Mg PO DAILY Diagnosis: Problems: (1) Alzheimer's dementia (2) Anxiety disorder (3) Bipolar 1 disorder, manic, moderate (4) Dementia in Alzheimer's disease with delirium (5) Major neurocognitive disorder, due to vascular disease, with behavioral disturbance, mild (6) Schizoaffective disorder, bipolar type (7) Vascular dementia with behavior disturbance (8) Impulse control disorder SCOTT OLSON MD Jun 16, 2017 22:13
--- NOTE | 2017-06-17 02:05 | PN ---
DATE: 06/15/2017 This late entry for 06/15/2017 covers elements not covered in my initial note of 06/15/2017. SUBJECTIVE: I met with the patient the evening of 06/15/2017. The patient has been more awake for about 2 days, received trazodone p.r.n. at 1:30 early in the morning to help with her insomnia. No hallucinations noted. REVIEW OF SYSTEMS: No CV, , pulmonary, eye, ENT system symptoms on review. MENTAL STATUS EXAMINATION: Oriented to herself. Speech moderate latency, often responses monosyllabic. Abstraction fair, computation impaired, language function intact, attention span short. Mood and affect somewhat withdrawn. LABORATORY DATA: Reviewed. IMPRESSION: Unchanged from initial note. PLAN: Continue current psychotropics mentioned in my initial note. Reviewed drug interactions and risk/benefit ratio, favors no further change. MAN Nataly OLSON MD DR: JAZZMINE/dennis JOB#: [id number] / [id number]
[2017-06-17] MEDS: LEVOTHYROXINE 25 MCG TABLET. PO SCH (03:01)
[2017-06-17 06:02] VITALS: BP 154/70
[2017-06-17] MEDS: FUROSEMIDE 40 MG TABLET PO SCH (07:57)
[2017-06-17] MEDS: amLODIPine BESYLATE 10 MG TABLET PO SCH (07:57)
[2017-06-17] MEDS: buPROPion XL 300 MG TAB.ER.24H. PO SCH (07:57)
[2017-06-17] MEDS: POTASSIUM CHLORIDE 10 MEQ TABLET.ER. PO SCH (07:58)
[2017-06-17] MEDS: LURASIDONE 40 MG TABLET. PO SCH (07:59)
[2017-06-17 16:38] VITALS: BP 146/67
[2017-06-17] MEDS: DONEPEZIL HCL 5 MG TABLET. PO SCH (19:47)
--- NOTE | 2017-06-17 20:57 | PDOC ---
Exam Chemo Demential Exam: Chemo Note: Please also refer to the separate dictated note~for this date of service dictated separately.~Patient seen individually. Discussed the patient with Nursing staff reviewed the chart.~Reviewed interim history and current functioning. Reviewed vital signs,~Labs/ Radiology~and current medications noted below. Continue current treatment with the changes noted in the dictated addendum note Assessment: Vital Signs: Vital Signs Date Time Temp Pulse Resp B/P (MAP) Pulse Ox O2 Delivery O2 Flow Rate FiO2 06/17/17 16:38 97.2 68 18 146/67 (93) 97 Room Air I&O Intake and Output 06/18/17 07:00 Intake Total 960 ml Balance 960 ml Intake Oral 960 ml # Bowel Movements 2 Current Medications: Meds: Current Medications Amlodipine Besylate (Norvasc) 10 mg DAILY PO Last administered on 06/17/17 07: 57; Start 05/25/17 at 09:00 Donepezil HCl (Aricept) 5 mg HS PO Last administered on 06/17/17 19:47; Start 05/24/17 at 21:00 Risperidone (RisperDAL) 0.25 mg BID PO Last administered on 05/25/17 08:13; Start 05/24/17 at 21:00; Stop 05/25/17 at 14:17; Status DC Acetaminophen (Tylenol) 650 mg PRN Q6HRS PRN PO PAIN / TEMP; Start 05/24/17 at 18:45 Multi-Ingredient Ointment (Analgesic [place]) 1 shell PRN QID PRN TP MUSCLE PAIN; Start 05/24/17 at 18:45 Al Hydroxide/Mg Hydroxide (Mylanta Plus Xs) 15 ml PRN AFTMEALHC PRN PO DYSPEPSIA; Start 05/24/17 at 18:45 Magnesium Hydroxide (Milk Of Magnesia) 2,400 mg PRN QHS PRN PO CONSTIPATION; Start 05/24/17 at 18:45 Risperidone (RisperDAL) 0.25 mg DAILY PO Last administered on 05/26/17 09:45 ; Start 05/26/17 at 09:00; Stop 05/26/17 at 18:25; Status DC Risperidone (RisperDAL) 0.5 mg HS PO Last administered on 05/25/17 19:46; Start 05/25/17 at 21:00; Stop 05/26/17 at 18:25; Status DC Sertraline HCl (Zoloft) 25 mg DAILY PO Last administered on 05/27/17 08:16; Start 05/26/17 at 09:00; Stop 05/27/17 at 18:38; Status DC Vitamin D (Vitamin D3) 50,000 unit WEEKLY PO Last administered on 06/16/17 08 :26; Start 05/26/17 at 16:00 Risperidone (RisperDAL) 0.5 mg BID PO Last administered on 06/11/17 07:28; Start 05/26/17 at 21:00; Stop 06/11/17 at 16:27; Status DC Sertraline HCl (Zoloft) 50 mg DAILY PO Last administered on 06/02/17 07:40; Start 05/28/17 at 09:00; Stop 06/02/17 at 14:58; Status DC Divalproex Sodium (Depakote Sprinkles) 500 mg HS PO Last administered on 20:31; Start 05/28/17 at 21:00; Stop 05/30/17 at 21:43; Status DC Mirtazapine (Remeron) 7.5 mg QHS PO Last administered on 06/08/17 19:26; Start 05/28/17 at 21:00; Stop 06/09/17 at 15:52; Status DC Trazodone HCl (Desyrel) 50 mg PRN QHS PRN PO Insomnia Last administered on 19:45; Start 05/28/17 at 20:15; Stop 06/15/17 at 01:51; Status DC Olanzapine (ZyPREXA ZYDIS) 2.5 mg PRN Q2HR PRN PO Anxiety/ Agitation Last administered on 06/09/17 16:27; Start 05/28/17 at 20:15 Divalproex Sodium (Depakote Sprinkles) 500 mg HS PO Last administered on 21:49; Start 05/30/17 at 22:00; Stop 05/31/17 at 19:12; Status DC Divalproex Sodium (Depakote Sprinkles) 250 mg HS PO Last administered on 20:15; Start 05/31/17 at 21:00; Stop 06/06/17 at 11:41; Status DC Divalproex Sodium (Depakote Sprinkles) 250 mg HS PO ; Start 05/31/17 at 21:00; Stop 05/31/17 at 21:00; Status DC Bupropion HCl (Wellbutrin Xl) 150 mg DAILY PO ; Start 06/03/17 at 09:00; Stop 06/03/17 at 09:00; Status DC Bupropion HCl (Wellbutrin Xl) 150 mg DAILY PO Last administered on 06/03/17 07:47; Start 06/03/17 at 09:00; Stop 06/04/17 at 08:31; Status DC Bupropion HCl (Wellbutrin Xl) 300 mg DAILY PO Last administered on 06/17/17 07 :57; Start 06/04/17 at 09:00 Hydrochlorothiazide (Hydrodiuril) 25 mg DAILY PO Last administered on 08:13; Start 06/04/17 at 09:00; Stop 06/05/17 at 10:14; Status DC Clonidine HCl (Catapres) 0.1 mg 1X ONCE PO Last administered on 06/03/17 18: 29; Start 06/03/17 at 17:15; Stop 06/03/17 at 17:16; Status DC Furosemide (Lasix) 40 mg DAILY PO Last administered on 06/17/17 07:57; Start 06/05/17 at 10:30 Levothyroxine Sodium (Synthroid) 25 mcg DAILY06 PO Last administered on 03:01; Start 06/06/17 at 06:00 Potassium Chloride (Klor-Con) 40 meq 1X ONCE PO Last administered on 15:34; Start 06/05/17 at 14:30; Stop 06/05/17 at 14:31; Status DC Potassium Chloride (Klor-Con) 40 meq DAILYWBKFT PO Last administered on 07:58; Start 06/06/17 at 08:00 Risperidone (RisperDAL) 1 mg DAILY PO Last administered on 06/12/17 08:12; Start 06/12/17 at 09:00; Stop 06/13/17 at 14:00; Status DC Risperidone (RisperDAL) 2 mg HS PO Last administered on 06/11/17 20:15; Start 06/11/17 at 21:00; Stop 06/13/17 at 14:00; Status DC Trazodone HCl (Desyrel) 50 mg PRN QHS PRN PO Insomnia Last administered on 19:59; Start 06/15/17 at 02:00 Active Scripts Active Reported Risperidone 0.5 Mg Tablet 0.25 Mg PO BID Aricept (Donepezil Hcl) 5 Mg Tablet 5 Mg PO HS Amlodipine Besylate 10 Mg Tablet 10 Mg PO DAILY Diagnosis: Problems: (1) Alzheimer's dementia (2) Anxiety disorder (3) Bipolar 1 disorder, manic, moderate (4) Dementia in Alzheimer's disease with delirium (5) Major neurocognitive disorder, due to vascular disease, with behavioral disturbance, mild (6) Schizoaffective disorder, bipolar type (7) Vascular dementia with behavior disturbance (8) Impulse control disorder SCOTT OLSON MD Jun 17, 2017 20:57
--- NOTE | 2017-06-18 04:44 | PN ---
DATE: 06/12/2017 SUBJECTIVE: The patient denies any new medical or neurological complaints. She slept 7-1/2 hours last night. She is more calm today. She denies hallucination or delusion. She denies any falls. She continues to have generalized weakness and she ambulates with some assistance. OBJECTIVE: GENERAL: Well-developed, well-nourished white female, not in acute distress. VITAL SIGNS: Afebrile, blood pressure is 157/63, respiratory rate 20, pulse is 64 and regular, temperature 98.6, oxygen saturation 96% on room air. HEENT: Normocephalic, atraumatic, otherwise unremarkable. NECK: Supple. Negative for carotid bruit, lymphadenopathy, JVD or thyromegaly. LUNGS: Clear to A and P. CARDIOVASCULAR: Regular rhythm, normal S1, S2. BREASTS: Deferred as the patient has had a right breast mass confirmed by sonogram and previous physical examination done by Dr. Perdomo. ABDOMEN: Soft. Bowel sounds positive. EXTREMITIES: Negative for cyanosis, clubbing or pitting edema. NEUROLOGIC: The patient is alert and oriented to herself. The speech is fluent. There is no language dysfunction. Memory, judgment and abstract thinkings are poor. The patient denies hallucination or delusion. Cranial nerves grossly intact. No focal motor or sensory deficits; however, the strength was 4/5 throughout. Deep tendon reflexes were symmetric with absent Achilles responses. Gait: The patient needed assistance for ambulation. LABORATORY DATA: CBC revealed white blood cells of 6.8, hemoglobin 12, hematocrit 35.8, platelet count 338,000. Chemistry revealed sodium of 142, potassium 4.1, chloride 104, CO2 of 30, BUN 22 and creatinine of 0.8. Glucose 120 and calcium 9.1. IMPRESSION: 1. Generalized weakness and gait disturbances, probably due to underlying multiple medical and psychiatric problems. 2. Multiple medical problems include hypertension, right breast mass and hypokalemia - corrected. 3. Multiple psychiatric problems include dementia, chronic schizophrenia and depression along with intermittent behavior disturbances. RECOMMENDATIONS: 1. Physical therapy evaluation and treatment. 2. General surgery consult if this is agreeable with the family and the patient. 3. Physical therapy. 4. Continue with current medical and psychiatric care. M Vickie NAGEL MD DR: NAHID/dennis JOB#: [id number] / [id number]
[2017-06-18] MEDS: LEVOTHYROXINE 25 MCG TABLET. PO SCH (05:21)
[2017-06-18 06:21] VITALS: BP 170/66
--- NOTE | 2017-06-18 06:26 | CONS ---
DATE OF CONSULTATION: 06/11/2017 NEURO CONSULT REFERRING PHYSICIAN: Anamika Guardado M.D. REASON FOR CONSULTATION: Generalized weakness and difficulty to walk. HISTORY OF PRESENT ILLNESS: This is an 81-year-old female who was [facility] on 05[facility]/2017 on account of recurrent psychotic symptoms with a history of paranoid schizophrenia. On the day of admission, the patient became agitated and hallucinated. Neuro consult was requested because the patient has difficulty to ambulate over the last 2 days. Currently, the patient denies headaches, visual disturbances, chest pain, shortness of breath or palpitation, dysarthria, dysphagia or vertigo. PAST MEDICAL HISTORY: The patient was recently diagnosed with right breast mass confirmed by ultrasound during this hospitalization, history of cellulitis of the lower extremities, hypertension, urinary tract infections and hypokalemia. CURRENT PSYCHIATRIC PROBLEMS: Includes possible paranoid schizophrenia, dementia, depressions and behavioral disturbances. FAMILY HISTORY: Noncontributory. SOCIAL HISTORY: The patient used to live with her son and sister. She denies smoking, alcohol drinking, or illicit drug use. CURRENT MEDICATIONS: Trazodone 50 mg at bedtime, potassium 40 mEq daily, levothyroxine 25 mcg daily, Lasix 40 mg daily, bupropion 300 mg daily, olanzapine 2.5 mg p.r.n. every 2 hours for agitation, vitamin D3, amlodipine 10 mg daily, Aricept 5 mg at bedtime, magnesium hydroxide, and Tylenol on p.r.n. basis. ALLERGIES: No known drug allergies. REVIEW OF SYSTEMS: A 10-point review of system was performed as mentioned above in history of present illness; otherwise, unremarkable. PHYSICAL EXAMINATION: GENERAL: Well-developed, well-nourished white female, not in acute distress. She weighs 179 pounds. VITAL SIGNS: Blood pressure 157/63, respiratory rate 20, pulse is 64 and regular, temperature 98.6, oxygen saturation 96% on room air. HEENT: Normocephalic, atraumatic; otherwise, unremarkable. NECK: Supple. Negative for carotid bruit, lymphadenopathy or thyromegaly. LUNGS: Clear to A and P. CARDIOVASCULAR: Regular rate and rhythm, normal S1, S2. There is no S3, S4 or murmur. ABDOMEN: Soft. Bowel sounds positive. EXTREMITIES: Negative for cyanosis, clubbing or pitting edema. BREASTS: Deferred as the patient has right breast mass confirmed on sonogram. EXTREMITIES: negative for cyanosis, clubbing or pitting edema. NEUROLOGIC: The patient is alert and oriented to herself. The speech is fluent. There is no language dysfunction. Memory, judgment, and abstract thinking's are poor. The patient denies hallucination or delusion. CRANIAL NERVES: The pupils are reactive to light and accommodation. The extraocular movements are intact. There is no nystagmus. There is no facial motor or sensory deficit. Hearing is intact bilaterally. The palate is elevated symmetrically. Sternocleidomastoid muscles are powerful bilaterally. The patient shrugs her shoulders symmetrically. Protrudes her tongue in the midline without fasciculation or atrophy. MOTOR: No focal muscle bulk was seen. The tone is normal. The strength is 4/5 throughout. Sensory examination revealed normal pinprick and light touch senses throughout. Deep tendon reflexes were symmetric and hypoactive with absent Achilles responses. GAIT: The patient had difficulty to walk without assistance; however, she was walking independently few days ago. LABORATORY DATA: On 06/05/2017 revealed white blood cells of 8.1 thousand, hemoglobin 12, hematocrit 35.2, platelet count 246,000. Chemistry revealed sodium of 142, potassium 3.1, chloride 104, CO2 33, BUN 18, creatinine 0.7, and glucose 103. Liver enzymes are normal with elevated alkaline phosphatase, low albumin, vitamin D is low at 27. Thyroid profile is normal. Valproic acid is low at 42. IMPRESSION: 1. Worsening of her ambulation and gait disturbances with unsteadiness. 2. Hypokalemia may have contributed to the generalized weakness. 3. Multiple medical problems include vitamin D deficiency, right breast mass and hypertension. 4. Multiple psychiatric problems including dementia, chronic paranoid schizophrenia and possible underlying depression. RECOMMENDATIONS: 1. Continue with current medical and psychiatric care. 2. Potassium supplement. 3. Physical therapy as tolerated. 4. The patient might need a general surgical consultation. M Vickie NAGEL MD DR: NAHID/dennis JOB#: [id number] / [id number]
--- NOTE | 2017-06-18 07:12 | PN ---
DATE: 06/16/2017 This late entry, date of service 06/16/2017, covers elements not covered in my initial note of 06/16/2017. I met with the patient in the evening of 06/16/2017. The patient has been calm, cooperative, more awake during the day. Appetite is better, less psychotic. REVIEW OF SYSTEMS: No CV, , pulmonary, eye, ENT system symptoms on review. Reliability poor. MENTAL STATUS EXAM: Oriented to herself and situation. Speech moderate latency, abstraction fair, computation impaired, language function intact. ____ Short term memory is impaired. No clear suicidal or homicidal ideation. LABORATORY DATA: Reviewed. IMPRESSION: Unchanged from initial note. PLAN: Continue current psychotropics. Reviewed drug interactions, risks/benefit ratio favors no further change. MAN Nataly OLSON MD DR: JAZZMINE/dennis JOB#: [id number] / [id number]
[2017-06-18] MEDS: FUROSEMIDE 40 MG TABLET PO SCH (08:05)
[2017-06-18] MEDS: buPROPion XL 300 MG TAB.ER.24H. PO SCH (08:06)
[2017-06-18] MEDS: POTASSIUM CHLORIDE 10 MEQ TABLET.ER. PO SCH (08:06)
[2017-06-18] MEDS: amLODIPine BESYLATE 10 MG TABLET PO SCH (08:06)
[2017-06-18] MEDS: LURASIDONE 40 MG TABLET. PO SCH (08:07)
[2017-06-18 16:28] VITALS: BP 117/60
[2017-06-18] MEDS: DONEPEZIL HCL 5 MG TABLET. PO SCH (20:01)
--- NOTE | 2017-06-18 20:54 | PDOC ---
Exam Chemo Demential Exam: Chemo Note: Please also refer to the separate dictated note~for this date of service dictated separately.~Patient seen individually. Discussed the patient with Nursing staff reviewed the chart.~Reviewed interim history and current functioning. Reviewed vital signs,~Labs/ Radiology~and current medications noted below. Continue current treatment with the changes noted in the dictated addendum note Assessment: Vital Signs: Vital Signs Date Time Temp Pulse Resp B/P (MAP) Pulse Ox O2 Delivery O2 Flow Rate FiO2 06/18/17 16:28 98.4 65 16 117/60 (79) 95 Room Air I&O Intake and Output 06/19/17 07:00 Intake Total 960 ml Balance 960 ml Intake Oral 960 ml # Bowel Movements 1 Current Medications: Meds: Current Medications Amlodipine Besylate (Norvasc) 10 mg DAILY PO Last administered on 06/18/17 08: 06; Start 05/25/17 at 09:00 Donepezil HCl (Aricept) 5 mg HS PO Last administered on 06/18/17 20:01; Start 05/24/17 at 21:00 Risperidone (RisperDAL) 0.25 mg BID PO Last administered on 05/25/17 08:13; Start 05/24/17 at 21:00; Stop 05/25/17 at 14:17; Status DC Acetaminophen (Tylenol) 650 mg PRN Q6HRS PRN PO PAIN / TEMP; Start 05/24/17 at 18:45 Multi-Ingredient Ointment (Analgesic [place]) 1 shell PRN QID PRN TP MUSCLE PAIN; Start 05/24/17 at 18:45 Al Hydroxide/Mg Hydroxide (Mylanta Plus Xs) 15 ml PRN AFTMEALHC PRN PO DYSPEPSIA; Start 05/24/17 at 18:45 Magnesium Hydroxide (Milk Of Magnesia) 2,400 mg PRN QHS PRN PO CONSTIPATION; Start 05/24/17 at 18:45 Risperidone (RisperDAL) 0.25 mg DAILY PO Last administered on 05/26/17 09:45 ; Start 05/26/17 at 09:00; Stop 05/26/17 at 18:25; Status DC Risperidone (RisperDAL) 0.5 mg HS PO Last administered on 05/25/17 19:46; Start 05/25/17 at 21:00; Stop 05/26/17 at 18:25; Status DC Sertraline HCl (Zoloft) 25 mg DAILY PO Last administered on 05/27/17 08:16; Start 05/26/17 at 09:00; Stop 05/27/17 at 18:38; Status DC Vitamin D (Vitamin D3) 50,000 unit WEEKLY PO Last administered on 06/16/17 08 :26; Start 05/26/17 at 16:00 Risperidone (RisperDAL) 0.5 mg BID PO Last administered on 06/11/17 07:28; Start 05/26/17 at 21:00; Stop 06/11/17 at 16:27; Status DC Sertraline HCl (Zoloft) 50 mg DAILY PO Last administered on 06/02/17 07:40; Start 05/28/17 at 09:00; Stop 06/02/17 at 14:58; Status DC Divalproex Sodium (Depakote Sprinkles) 500 mg HS PO Last administered on 20:31; Start 05/28/17 at 21:00; Stop 05/30/17 at 21:43; Status DC Mirtazapine (Remeron) 7.5 mg QHS PO Last administered on 06/08/17 19:26; Start 05/28/17 at 21:00; Stop 06/09/17 at 15:52; Status DC Trazodone HCl (Desyrel) 50 mg PRN QHS PRN PO Insomnia Last administered on 19:45; Start 05/28/17 at 20:15; Stop 06/15/17 at 01:51; Status DC Olanzapine (ZyPREXA ZYDIS) 2.5 mg PRN Q2HR PRN PO Anxiety/ Agitation Last administered on 06/09/17 16:27; Start 05/28/17 at 20:15 Divalproex Sodium (Depakote Sprinkles) 500 mg HS PO Last administered on 21:49; Start 05/30/17 at 22:00; Stop 05/31/17 at 19:12; Status DC Divalproex Sodium (Depakote Sprinkles) 250 mg HS PO Last administered on 20:15; Start 05/31/17 at 21:00; Stop 06/06/17 at 11:41; Status DC Divalproex Sodium (Depakote Sprinkles) 250 mg HS PO ; Start 05/31/17 at 21:00; Stop 05/31/17 at 21:00; Status DC Bupropion HCl (Wellbutrin Xl) 150 mg DAILY PO ; Start 06/03/17 at 09:00; Stop 06/03/17 at 09:00; Status DC Bupropion HCl (Wellbutrin Xl) 150 mg DAILY PO Last administered on 06/03/17 07:47; Start 06/03/17 at 09:00; Stop 06/04/17 at 08:31; Status DC Bupropion HCl (Wellbutrin Xl) 300 mg DAILY PO Last administered on 06/18/17 08 :06; Start 06/04/17 at 09:00 Hydrochlorothiazide (Hydrodiuril) 25 mg DAILY PO Last administered on 08:13; Start 06/04/17 at 09:00; Stop 06/05/17 at 10:14; Status DC Clonidine HCl (Catapres) 0.1 mg 1X ONCE PO Last administered on 06/03/17 18: 29; Start 06/03/17 at 17:15; Stop 06/03/17 at 17:16; Status DC Furosemide (Lasix) 40 mg DAILY PO Last administered on 06/18/17 08:05; Start 06/05/17 at 10:30 Levothyroxine Sodium (Synthroid) 25 mcg DAILY06 PO Last administered on 05:21; Start 06/06/17 at 06:00 Potassium Chloride (Klor-Con) 40 meq 1X ONCE PO Last administered on 15:34; Start 06/05/17 at 14:30; Stop 06/05/17 at 14:31; Status DC Potassium Chloride (Klor-Con) 40 meq DAILYWBKFT PO Last administered on 08:06; Start 06/06/17 at 08:00 Risperidone (RisperDAL) 1 mg DAILY PO Last administered on 06/12/17 08:12; Start 06/12/17 at 09:00; Stop 06/13/17 at 14:00; Status DC Risperidone (RisperDAL) 2 mg HS PO Last administered on 06/11/17 20:15; Start 06/11/17 at 21:00; Stop 06/13/17 at 14:00; Status DC Trazodone HCl (Desyrel) 50 mg PRN QHS PRN PO Insomnia Last administered on 19:59; Start 06/15/17 at 02:00 Active Scripts Active Reported Risperidone 0.5 Mg Tablet 0.25 Mg PO BID Aricept (Donepezil Hcl) 5 Mg Tablet 5 Mg PO HS Amlodipine Besylate 10 Mg Tablet 10 Mg PO DAILY Diagnosis: Problems: (1) Alzheimer's dementia (2) Anxiety disorder (3) Bipolar 1 disorder, manic, moderate (4) Dementia in Alzheimer's disease with delirium (5) Major neurocognitive disorder, due to vascular disease, with behavioral disturbance, mild (6) Schizoaffective disorder, bipolar type (7) Vascular dementia with behavior disturbance (8) Impulse control disorder SCOTT OLSON MD Jun 18, 2017 20:54
--- NOTE | 2017-06-18 23:27 | PN ---
DATE: 06/17/2017 PSYCHIATRIC PROGRESS NOTE This is a late entry, date of service 06/17/2017 covers elements not covered in my initial note of 06/17/2017. SUBJECTIVE: I with the patient evening of 06/17/2017, staffed at treatment team meeting with the entire team morning of 06/17/2017. Reviewed the patient's diagnosis, progress, discharge plans to [place]. Discussed concerns about her not ambulating, even though she was ambulating at admission, though gait was unsteady. She is in PT and OT to help with this. REVIEW OF SYSTEMS: No CV, , pulmonary, eye, ENT system symptoms on review. Reliability poor. MENTAL STATUS EXAMINATION: Oriented to herself and situation. Speech moderate latency, often responses monosyllabic, poor eye contact. Abstraction fair, computation impaired, language function intact, attention span short. Mood and affect still withdrawn. LABORATORY DATA: Reviewed. More awake during the day. IMPRESSION: Unchanged from initial note. PLAN: Increase Latuda to 60 mg a day, maintain Wellbutrin-XL 300 mg a day, Aricept 5 mg a day, trazodone p.r.n., Zyprexa p.r.n. Reviewed drug interactions. Risk/benefit ratio favors no further change. SCOTT OLSON MD DR: JAZZMINE/dennis JOB#: [id number] / [id number]
[2017-06-19] MEDS: LEVOTHYROXINE 25 MCG TABLET. PO SCH (05:17)
[2017-06-19 06:18] VITALS: BP 151/61
[2017-06-19] MEDS: POTASSIUM CHLORIDE 10 MEQ TABLET.ER. PO SCH (08:08)
[2017-06-19] MEDS: buPROPion XL 300 MG TAB.ER.24H. PO SCH (08:08)
[2017-06-19] MEDS: FUROSEMIDE 40 MG TABLET PO SCH (08:08)
[2017-06-19] MEDS: amLODIPine BESYLATE 10 MG TABLET PO SCH (08:08)
[2017-06-19] MEDS: LURASIDONE 40 MG TABLET. PO SCH (08:09)
[2017-06-19 16:19] VITALS: BP 174/74
[2017-06-19] MEDS: DONEPEZIL HCL 5 MG TABLET. PO SCH (19:34)
--- NOTE | 2017-06-19 21:02 | PDOC ---
Exam Chemo Demential Exam: [place] Note: Please also refer to the separate dictated note~for this date of service dictated separately.~Patient seen individually. Discussed the patient with Nursing staff reviewed the chart.~Reviewed interim history and current functioning. Reviewed vital signs,~Labs/ Radiology~and current medications noted below. Continue current treatment with the changes noted in the dictated addendum note Assessment: Vital Signs: Vital Signs Date Time Temp Pulse Resp B/P (MAP) Pulse Ox O2 Delivery O2 Flow Rate FiO2 06/19/17 16:19 97.8 65 20 174/74 (107) 97 06/18/17 16:28 Room Air I&O Intake and Output 06/20/17 07:00 Intake Total 1080 ml Balance 1080 ml Intake Oral 1080 ml Current Medications: Meds: Current Medications Amlodipine Besylate (Norvasc) 10 mg DAILY PO Last administered on 06/19/17 08: 08; Start 05/25/17 at 09:00 Donepezil HCl (Aricept) 5 mg HS PO Last administered on 06/19/17 19:34; Start 05/24/17 at 21:00 Risperidone (RisperDAL) 0.25 mg BID PO Last administered on 05/25/17 08:13; Start 05/24/17 at 21:00; Stop 05/25/17 at 14:17; Status DC Acetaminophen (Tylenol) 650 mg PRN Q6HRS PRN PO PAIN / TEMP; Start 05/24/17 at 18:45 Multi-Ingredient Ointment (Analgesic [place]) 1 shell PRN QID PRN TP MUSCLE PAIN; Start 05/24/17 at 18:45 Al Hydroxide/Mg Hydroxide (Mylanta Plus Xs) 15 ml PRN AFTMEALHC PRN PO DYSPEPSIA; Start 05/24/17 at 18:45 Magnesium Hydroxide (Milk Of Magnesia) 2,400 mg PRN QHS PRN PO CONSTIPATION; Start 05/24/17 at 18:45 Risperidone (RisperDAL) 0.25 mg DAILY PO Last administered on 05/26/17 09:45 ; Start 05/26/17 at 09:00; Stop 05/26/17 at 18:25; Status DC Risperidone (RisperDAL) 0.5 mg HS PO Last administered on 05/25/17 19:46; Start 05/25/17 at 21:00; Stop 05/26/17 at 18:25; Status DC Sertraline HCl (Zoloft) 25 mg DAILY PO Last administered on 05/27/17 08:16; Start 05/26/17 at 09:00; Stop 05/27/17 at 18:38; Status DC Vitamin D (Vitamin D3) 50,000 unit WEEKLY PO Last administered on 06/16/17 08 :26; Start 05/26/17 at 16:00 Risperidone (RisperDAL) 0.5 mg BID PO Last administered on 06/11/17 07:28; Start 05/26/17 at 21:00; Stop 06/11/17 at 16:27; Status DC Sertraline HCl (Zoloft) 50 mg DAILY PO Last administered on 06/02/17 07:40; Start 05/28/17 at 09:00; Stop 06/02/17 at 14:58; Status DC Divalproex Sodium (Depakote Sprinkles) 500 mg HS PO Last administered on 20:31; Start 05/28/17 at 21:00; Stop 05/30/17 at 21:43; Status DC Mirtazapine (Remeron) 7.5 mg QHS PO Last administered on 06/08/17 19:26; Start 05/28/17 at 21:00; Stop 06/09/17 at 15:52; Status DC Trazodone HCl (Desyrel) 50 mg PRN QHS PRN PO Insomnia Last administered on 19:45; Start 05/28/17 at 20:15; Stop 06/15/17 at 01:51; Status DC Olanzapine (ZyPREXA ZYDIS) 2.5 mg PRN Q2HR PRN PO Anxiety/ Agitation Last administered on 06/09/17 16:27; Start 05/28/17 at 20:15 Divalproex Sodium (Depakote Sprinkles) 500 mg HS PO Last administered on 21:49; Start 05/30/17 at 22:00; Stop 05/31/17 at 19:12; Status DC Divalproex Sodium (Depakote Sprinkles) 250 mg HS PO Last administered on 20:15; Start 05/31/17 at 21:00; Stop 06/06/17 at 11:41; Status DC Divalproex Sodium (Depakote Sprinkles) 250 mg HS PO ; Start 05/31/17 at 21:00; Stop 05/31/17 at 21:00; Status DC Bupropion HCl (Wellbutrin Xl) 150 mg DAILY PO ; Start 06/03/17 at 09:00; Stop 06/03/17 at 09:00; Status DC Bupropion HCl (Wellbutrin Xl) 150 mg DAILY PO Last administered on 06/03/17 07:47; Start 06/03/17 at 09:00; Stop 06/04/17 at 08:31; Status DC Bupropion HCl (Wellbutrin Xl) 300 mg DAILY PO Last administered on 06/19/17 08 :08; Start 06/04/17 at 09:00 Hydrochlorothiazide (Hydrodiuril) 25 mg DAILY PO Last administered on 08:13; Start 06/04/17 at 09:00; Stop 06/05/17 at 10:14; Status DC Clonidine HCl (Catapres) 0.1 mg 1X ONCE PO Last administered on 06/03/17 18: 29; Start 06/03/17 at 17:15; Stop 06/03/17 at 17:16; Status DC Furosemide (Lasix) 40 mg DAILY PO Last administered on 06/19/17 08:08; Start 06/05/17 at 10:30 Levothyroxine Sodium (Synthroid) 25 mcg DAILY06 PO Last administered on 05:17; Start 06/06/17 at 06:00 Potassium Chloride (Klor-Con) 40 meq 1X ONCE PO Last administered on 15:34; Start 06/05/17 at 14:30; Stop 06/05/17 at 14:31; Status DC Potassium Chloride (Klor-Con) 40 meq DAILYWBKFT PO Last administered on 08:08; Start 06/06/17 at 08:00 Risperidone (RisperDAL) 1 mg DAILY PO Last administered on 06/12/17 08:12; Start 06/12/17 at 09:00; Stop 06/13/17 at 14:00; Status DC Risperidone (RisperDAL) 2 mg HS PO Last administered on 06/11/17 20:15; Start 06/11/17 at 21:00; Stop 06/13/17 at 14:00; Status DC Trazodone HCl (Desyrel) 50 mg PRN QHS PRN PO Insomnia Last administered on 19:59; Start 06/15/17 at 02:00 Active Scripts Active Reported Risperidone 0.5 Mg Tablet 0.25 Mg PO BID Aricept (Donepezil Hcl) 5 Mg Tablet 5 Mg PO HS Amlodipine Besylate 10 Mg Tablet 10 Mg PO DAILY Diagnosis: Problems: (1) Alzheimer's dementia (2) Anxiety disorder (3) Bipolar 1 disorder, manic, moderate (4) Dementia in Alzheimer's disease with delirium (5) Major neurocognitive disorder, due to vascular disease, with behavioral disturbance, mild (6) Schizoaffective disorder, bipolar type (7) Vascular dementia with behavior disturbance (8) Impulse control disorder SCOTT OLSON MD Jun 19, 2017 21:02
[2017-06-19] MEDS: traZODone 50 MG TABLET. PO PRN (23:46)
[2017-06-20] MEDS: LEVOTHYROXINE 25 MCG TABLET. PO SCH (05:54)
[2017-06-20 06:08] VITALS: BP 159/56
[2017-06-20] MEDS: buPROPion XL 300 MG TAB.ER.24H. PO SCH (06:13)
[2017-06-20] MEDS: POTASSIUM CHLORIDE 10 MEQ TABLET.ER. PO SCH (06:13)
[2017-06-20] MEDS: FUROSEMIDE 40 MG TABLET PO SCH (06:14)
[2017-06-20] MEDS: amLODIPine BESYLATE 10 MG TABLET PO SCH (06:14)
[2017-06-20] MEDS: LURASIDONE 40 MG TABLET. PO SCH (06:14)
[2017-06-20 07:50] LABS: BASO # 0.1 x10^3/uL (0.0-0.2); BASO % 1 % (0-3); EOS # 0.4 x10^3/uL (0.0-0.7); EOS % 5 % (0-3); HEMATOCRIT 37.9 % (36.0-47.0); HEMOGLOBIN 12.7 g/dL (12.0-15.5); LYMPH # 1.9 x10^3/uL (1.0-4.8); LYMPH % 25 % (24-48); MEAN CORPUSCULAR HEMOGLOBIN 31 pg (25-35); MEAN CORPUSCULAR HGB CONC 34 g/dL (31-37); MEAN CORPUSCULAR VOLUME 93 fL (79-100); MONO # 0.9 x10^3/uL (0.0-1.1); MONO % 12 % (0-9); NEUT # 4.4 x10^3uL (1.8-7.7); NEUT % 57 % (31-73); PLATELET COUNT 366 x10^3/uL (140-400); RED BLOOD COUNT 4.06 x10^6/uL (3.50-5.40); RED CELL DISTRIBUTION WIDTH 13.6 % (11.5-14.5); WHITE BLOOD COUNT 7.7 x10^3/uL (4.0-11.0)
[2017-06-20] MEDS ORDERED: ONDANSETRON ODT 4 MG TAB.RAPDIS PO PRN (08:15)
[2017-06-20 08:17] LABS: ALBUMIN 3.3 g/dL (3.4-5.0); ALBUMIN/GLOBULIN RATIO 0.8 (1.0-1.7); CALCIUM 9.4 mg/dL (8.5-10.1); CREATININE 0.9 mg/dL (0.6-1.0); GFR 60.1; POTASSIUM 3.6 mmol/L (3.5-5.1); TOTAL BILIRUBIN 0.5 mg/dL (0.2-1.0); TOTAL PROTEIN 7.5 g/dL (6.4-8.2)
[2017-06-20 16:19] VITALS: BP 189/78
[2017-06-20] MEDS: DONEPEZIL HCL 5 MG TABLET. PO SCH (19:32)
[2017-06-20 20:00] VITALS: BP 156/69
--- NOTE | 2017-06-20 22:35 | PN ---
DATE: 06/19/2017 This is a late entry for 06/19/2017 and covers elements not covered in my initial note of 06/19/2017. I met with the patient evening of 06/19/2017. The patient slept 5-1/2 hours previous evening. REVIEW OF SYSTEMS: Ambulation impaired, in a wheelchair. No CV, , pulmonary, eye, ENT system symptoms on review. Reliability poor. MENTAL STATUS EXAM: Oriented to herself and situation. Speech has some latency, often responses monosyllabic. Abstraction fair, computation impaired, language function intact. Short term memory is impaired. Psychotic symptoms are improved. She is less bent forward in her wheelchair than before. LABORATORY DATA: Reviewed. IMPRESSION: Unchanged from initial note. PLAN: Continue current psychotropics as mentioned in the initial note. Reviewed drug interactions, risk/benefit ratio favors no further change. Transition to a lower level of care in the next day or two. SCOTT OLSON MD DR: JAZZMINE/dennis JOB#: [id number] / [id number]
[2017-06-20] MEDS: traZODone 50 MG TABLET. PO PRN (22:43)
--- NOTE | 2017-06-21 | PDOC ---
Exam Chemo Demential Exam: Chemo Note: Please also refer to the separate dictated note~for this date of service dictated separately.~Patient seen individually. Discussed the patient with Nursing staff reviewed the chart.~Reviewed interim history and current functioning. Reviewed vital signs,~Labs/ Radiology~and current medications noted below. Continue current treatment with the changes noted in the dictated addendum note Assessment: Vital Signs: Vital Signs Date Time Temp Pulse Resp B/P (MAP) Pulse Ox O2 Delivery O2 Flow Rate FiO2 06/20/17 20:00 98.0 68 16 156/69 (98) 95 06/18/17 16:28 Room Air I&O Intake and Output 06/21/17 07:00 Intake Total 720 ml Balance 720 ml Intake Oral 720 ml Labs: Laboratory Tests Test 06/20/17 07:00 White Blood Count 7.7 x10^3/uL (4.0-11.0) Red Blood Count 4.06 x10^6/uL (3.50-5.40) Hemoglobin 12.7 g/dL (12.0-15.5) Hematocrit 37.9 % (36.0-47.0) Mean Corpuscular Volume 93 fL (79-100) Mean Corpuscular Hemoglobin 31 pg (25-35) Mean Corpuscular Hemoglobin Concent 34 g/dL (31-37) Red Cell Distribution Width 13.6 % (11.5-14.5) Platelet Count 366 x10^3/uL (140-400) Neutrophils (%) (Auto) 57 % (31-73) Lymphocytes (%) (Auto) 25 % (24-48) Monocytes (%) (Auto) 12 % (0-9) H Eosinophils (%) (Auto) 5 % (0-3) H Basophils (%) (Auto) 1 % (0-3) Neutrophils # (Auto) 4.4 x10^3uL (1.8-7.7) Lymphocytes # (Auto) 1.9 x10^3/uL (1.0-4.8) Monocytes # (Auto) 0.9 x10^3/uL (0.0-1.1) Eosinophils # (Auto) 0.4 x10^3/uL (0.0-0.7) Basophils # (Auto) 0.1 x10^3/uL (0.0-0.2) Sodium Level 141 mmol/L (136-145) Potassium Level 3.6 mmol/L (3.5-5.1) Chloride Level 103 mmol/L (98-107) Carbon Dioxide Level 32 mmol/L (21-32) Anion Gap 6 (6-14) Blood Urea Nitrogen 16 mg/dL (7-20) Creatinine 0.9 mg/dL (0.6-1.0) Estimated GFR (Cockcroft-Gault) 60.1 BUN/Creatinine Ratio 18 (6-20) Glucose Level 133 mg/dL (70-99) H Calcium Level 9.4 mg/dL (8.5-10.1) Total Bilirubin 0.5 mg/dL (0.2-1.0) Aspartate Amino Transferase (AST) 17 U/L (15-37) Alanine Aminotransferase (ALT) 29 U/L (14-59) Alkaline Phosphatase 123 U/L (46-116) H Total Protein 7.5 g/dL (6.4-8.2) Albumin 3.3 g/dL (3.4-5.0) L Albumin/Globulin Ratio 0.8 (1.0-1.7) L Current Medications: Meds: Current Medications Amlodipine Besylate (Norvasc) 10 mg DAILY PO Last administered on 06/20/17 06: 14; Start 05/25/17 at 09:00 Donepezil HCl (Aricept) 5 mg HS PO Last administered on 06/20/17 19:32; Start 05/24/17 at 21:00 Risperidone (RisperDAL) 0.25 mg BID PO Last administered on 05/25/17 08:13; Start 05/24/17 at 21:00; Stop 05/25/17 at 14:17; Status DC Acetaminophen (Tylenol) 650 mg PRN Q6HRS PRN PO PAIN / TEMP; Start 05/24/17 at 18:45 Multi-Ingredient Ointment (Analgesic [place]) 1 shell PRN QID PRN TP MUSCLE PAIN; Start 05/24/17 at 18:45 Al Hydroxide/Mg Hydroxide (Mylanta Plus Xs) 15 ml PRN AFTMEALHC PRN PO DYSPEPSIA; Start 05/24/17 at 18:45 Magnesium Hydroxide (Milk Of Magnesia) 2,400 mg PRN QHS PRN PO CONSTIPATION; Start 05/24/17 at 18:45 Risperidone (RisperDAL) 0.25 mg DAILY PO Last administered on 05/26/17 09:45 ; Start 05/26/17 at 09:00; Stop 05/26/17 at 18:25; Status DC Risperidone (RisperDAL) 0.5 mg HS PO Last administered on 05/25/17 19:46; Start 05/25/17 at 21:00; Stop 05/26/17 at 18:25; Status DC Sertraline HCl (Zoloft) 25 mg DAILY PO Last administered on 05/27/17 08:16; Start 05/26/17 at 09:00; Stop 05/27/17 at 18:38; Status DC Vitamin D (Vitamin D3) 50,000 unit WEEKLY PO Last administered on 06/16/17 08 :26; Start 05/26/17 at 16:00 Risperidone (RisperDAL) 0.5 mg BID PO Last administered on 06/11/17 07:28; Start 05/26/17 at 21:00; Stop 06/11/17 at 16:27; Status DC Sertraline HCl (Zoloft) 50 mg DAILY PO Last administered on 06/02/17 07:40; Start 05/28/17 at 09:00; Stop 06/02/17 at 14:58; Status DC Divalproex Sodium (Depakote Sprinkles) 500 mg HS PO Last administered on 20:31; Start 05/28/17 at 21:00; Stop 05/30/17 at 21:43; Status DC Mirtazapine (Remeron) 7.5 mg QHS PO Last administered on 06/08/17 19:26; Start 05/28/17 at 21:00; Stop 06/09/17 at 15:52; Status DC Trazodone HCl (Desyrel) 50 mg PRN QHS PRN PO Insomnia Last administered on 19:45; Start 05/28/17 at 20:15; Stop 06/15/17 at 01:51; Status DC Olanzapine (ZyPREXA ZYDIS) 2.5 mg PRN Q2HR PRN PO Anxiety/ Agitation Last administered on 06/09/17 16:27; Start 05/28/17 at 20:15 Divalproex Sodium (Depakote Sprinkles) 500 mg HS PO Last administered on 21:49; Start 05/30/17 at 22:00; Stop 05/31/17 at 19:12; Status DC Divalproex Sodium (Depakote Sprinkles) 250 mg HS PO Last administered on 20:15; Start 05/31/17 at 21:00; Stop 06/06/17 at 11:41; Status DC Divalproex Sodium (Depakote Sprinkles) 250 mg HS PO ; Start 05/31/17 at 21:00; Stop 05/31/17 at 21:00; Status DC Bupropion HCl (Wellbutrin Xl) 150 mg DAILY PO ; Start 06/03/17 at 09:00; Stop 06/03/17 at 09:00; Status DC Bupropion HCl (Wellbutrin Xl) 150 mg DAILY PO Last administered on 06/03/17 07:47; Start 06/03/17 at 09:00; Stop 06/04/17 at 08:31; Status DC Bupropion HCl (Wellbutrin Xl) 300 mg DAILY PO Last administered on 06/20/17 06 :13; Start 06/04/17 at 09:00 Hydrochlorothiazide (Hydrodiuril) 25 mg DAILY PO Last administered on 08:13; Start 06/04/17 at 09:00; Stop 06/05/17 at 10:14; Status DC Clonidine HCl (Catapres) 0.1 mg 1X ONCE PO Last administered on 06/03/17 18: 29; Start 06/03/17 at 17:15; Stop 06/03/17 at 17:16; Status DC Furosemide (Lasix) 40 mg DAILY PO Last administered on 06/20/17 06:14; Start 06/05/17 at 10:30 Levothyroxine Sodium (Synthroid) 25 mcg DAILY06 PO Last administered on 05:54; Start 06/06/17 at 06:00 Potassium Chloride (Klor-Con) 40 meq 1X ONCE PO Last administered on 15:34; Start 06/05/17 at 14:30; Stop 06/05/17 at 14:31; Status DC Potassium Chloride (Klor-Con) 40 meq DAILYWBKFT PO Last administered on 06:13; Start 06/06/17 at 08:00 Risperidone (RisperDAL) 1 mg DAILY PO Last administered on 06/12/17 08:12; Start 06/12/17 at 09:00; Stop 06/13/17 at 14:00; Status DC Risperidone (RisperDAL) 2 mg HS PO Last administered on 06/11/17 20:15; Start 06/11/17 at 21:00; Stop 06/13/17 at 14:00; Status DC Trazodone HCl (Desyrel) 50 mg PRN QHS PRN PO Insomnia Last administered on 06/20 22:43; Start 06/15/17 at 02:00 Ondansetron HCl (Zofran Odt) 4 mg PRN Q8HRS PRN PO NAUSEA/VOMITING Last administered on 06/20/17 08:39; Start 06/20/17 at 08:15 Active Scripts Active Reported Risperidone 0.5 Mg Tablet 0.25 Mg PO BID Aricept (Donepezil Hcl) 5 Mg Tablet 5 Mg PO HS Amlodipine Besylate 10 Mg Tablet 10 Mg PO DAILY Diagnosis: Problems: (1) Alzheimer's dementia (2) Anxiety disorder (3) Bipolar 1 disorder, manic, moderate (4) Dementia in Alzheimer's disease with delirium (5) Major neurocognitive disorder, due to vascular disease, with behavioral disturbance, mild (6) Schizoaffective disorder, bipolar type (7) Vascular dementia with behavior disturbance (8) Impulse control disorder SCOTT OLSON MD Jun 21, 2017 00:00
[2017-06-21 06:21] VITALS: BP 178/63
[2017-06-21] MEDS: FUROSEMIDE 40 MG TABLET PO SCH (06:39)
[2017-06-21] MEDS: amLODIPine BESYLATE 10 MG TABLET PO SCH (06:39)
[2017-06-21] MEDS: LEVOTHYROXINE 25 MCG TABLET. PO SCH (06:39)
[2017-06-21] MEDS: buPROPion XL 300 MG TAB.ER.24H. PO SCH (06:39)
[2017-06-21] MEDS: LURASIDONE 40 MG TABLET. PO SCH (06:40)
[2017-06-21] MEDS: POTASSIUM CHLORIDE 10 MEQ TABLET.ER. PO SCH (06:40)
[2017-06-21] MEDS ORDERED: ACET325T9 PO (16:06)
[2017-06-21] MEDS ORDERED: CHOL500050 PO (16:08)
[2017-06-21] MEDS ORDERED: FURO40TA4 PO (16:09)
[2017-06-21] MEDS ORDERED: LEVO25TA4 PO (16:11)
[2017-06-21] MEDS ORDERED: LURA40TA PO (16:12)
[2017-06-21] MEDS ORDERED: MAG355OR12 PO (16:26)
[2017-06-21] MEDS ORDERED: MAGN2400 PO (16:27)
[2017-06-21] MEDS ORDERED: MENT113G6 TP (16:28)
[2017-06-21] MEDS ORDERED: OLAN5TAB7 PO (16:31)
[2017-06-21] MEDS ORDERED: POTA20TA4 PO (16:32)
[2017-06-21] MEDS ORDERED: BUPR300T3 PO (16:33)
[2017-06-21] MEDS ORDERED: TRAZ50TA15 PO (16:33)
[2017-06-21 16:46] VITALS: BP 157/97
--- NOTE | 2017-06-21 18:09 | PDOC ---
Exam Chemo Demential Exam: Chemo Note: Please also refer to the separate dictated note~for this date of service dictated separately.~Patient seen individually. Discussed the patient with Nursing staff reviewed the chart.~Reviewed interim history and current functioning. Reviewed vital signs,~Labs/ Radiology~and current medications noted below. Continue current treatment with the changes noted in the dictated addendum note Assessment: Vital Signs: Vital Signs Date Time Temp Pulse Resp B/P (MAP) Pulse Ox O2 Delivery O2 Flow Rate FiO2 06/21/17 16:46 97.7 78 20 157/97 (117) 94 06/18/17 16:28 Room Air I&O Intake and Output 06/22/17 07:00 Intake Total 840 ml Balance 840 ml Intake Oral 840 ml Current Medications: Meds: Current Medications Amlodipine Besylate (Norvasc) 10 mg DAILY PO Last administered on 06/21/17 06: 39; Start 05/25/17 at 09:00 Donepezil HCl (Aricept) 5 mg HS PO Last administered on 06/20/17 19:32; Start 05/24/17 at 21:00 Risperidone (RisperDAL) 0.25 mg BID PO Last administered on 05/25/17 08:13; Start 05/24/17 at 21:00; Stop 05/25/17 at 14:17; Status DC Acetaminophen (Tylenol) 650 mg PRN Q6HRS PRN PO PAIN / TEMP; Start 05/24/17 at 18:45 Multi-Ingredient Ointment (Analgesic [place]) 1 yuriy PRN QID PRN TP MUSCLE PAIN; Start 05/24/17 at 18:45 Al Hydroxide/Mg Hydroxide (Mylanta Plus Xs) 15 ml PRN AFTMEALHC PRN PO DYSPEPSIA; Start 05/24/17 at 18:45 Magnesium Hydroxide (Milk Of Magnesia) 2,400 mg PRN QHS PRN PO CONSTIPATION; Start 05/24/17 at 18:45 Risperidone (RisperDAL) 0.25 mg DAILY PO Last administered on 05/26/17 09:45 ; Start 05/26/17 at 09:00; Stop 05/26/17 at 18:25; Status DC Risperidone (RisperDAL) 0.5 mg HS PO Last administered on 05/25/17 19:46; Start 05/25/17 at 21:00; Stop 05/26/17 at 18:25; Status DC Sertraline HCl (Zoloft) 25 mg DAILY PO Last administered on 05/27/17 08:16; Start 05/26/17 at 09:00; Stop 05/27/17 at 18:38; Status DC Vitamin D (Vitamin D3) 50,000 unit WEEKLY PO Last administered on 06/16/17 08 :26; Start 05/26/17 at 16:00 Risperidone (RisperDAL) 0.5 mg BID PO Last administered on 06/11/17 07:28; Start 05/26/17 at 21:00; Stop 06/11/17 at 16:27; Status DC Sertraline HCl (Zoloft) 50 mg DAILY PO Last administered on 06/02/17 07:40; Start 05/28/17 at 09:00; Stop 06/02/17 at 14:58; Status DC Divalproex Sodium (Depakote Sprinkles) 500 mg HS PO Last administered on 20:31; Start 05/28/17 at 21:00; Stop 05/30/17 at 21:43; Status DC Mirtazapine (Remeron) 7.5 mg QHS PO Last administered on 06/08/17 19:26; Start 05/28/17 at 21:00; Stop 06/09/17 at 15:52; Status DC Trazodone HCl (Desyrel) 50 mg PRN QHS PRN PO Insomnia Last administered on 19:45; Start 05/28/17 at 20:15; Stop 06/15/17 at 01:51; Status DC Olanzapine (ZyPREXA ZYDIS) 2.5 mg PRN Q2HR PRN PO Anxiety/ Agitation Last administered on 06/09/17 16:27; Start 05/28/17 at 20:15 Divalproex Sodium (Depakote Sprinkles) 500 mg HS PO Last administered on 21:49; Start 05/30/17 at 22:00; Stop 05/31/17 at 19:12; Status DC Divalproex Sodium (Depakote Sprinkles) 250 mg HS PO Last administered on 20:15; Start 05/31/17 at 21:00; Stop 06/06/17 at 11:41; Status DC Divalproex Sodium (Depakote Sprinkles) 250 mg HS PO ; Start 05/31/17 at 21:00; Stop 05/31/17 at 21:00; Status DC Bupropion HCl (Wellbutrin Xl) 150 mg DAILY PO ; Start 06/03/17 at 09:00; Stop 06/03/17 at 09:00; Status DC Bupropion HCl (Wellbutrin Xl) 150 mg DAILY PO Last administered on 06/03/17 07:47; Start 06/03/17 at 09:00; Stop 06/04/17 at 08:31; Status DC Bupropion HCl (Wellbutrin Xl) 300 mg DAILY PO Last administered on 06/21/17 06 :39; Start 06/04/17 at 09:00 Hydrochlorothiazide (Hydrodiuril) 25 mg DAILY PO Last administered on 08:13; Start 06/04/17 at 09:00; Stop 06/05/17 at 10:14; Status DC Clonidine HCl (Catapres) 0.1 mg 1X ONCE PO Last administered on 06/03/17 18: 29; Start 06/03/17 at 17:15; Stop 06/03/17 at 17:16; Status DC Furosemide (Lasix) 40 mg DAILY PO Last administered on 06/21/17 06:39; Start 06/05/17 at 10:30 Levothyroxine Sodium (Synthroid) 25 mcg DAILY06 PO Last administered on 06:39; Start 06/06/17 at 06:00 Potassium Chloride (Klor-Con) 40 meq 1X ONCE PO Last administered on 15:34; Start 06/05/17 at 14:30; Stop 06/05/17 at 14:31; Status DC Potassium Chloride (Klor-Con) 40 meq DAILYWBKFT PO Last administered on 06:40; Start 06/06/17 at 08:00 Risperidone (RisperDAL) 1 mg DAILY PO Last administered on 06/12/17 08:12; Start 06/12/17 at 09:00; Stop 06/13/17 at 14:00; Status DC Risperidone (RisperDAL) 2 mg HS PO Last administered on 06/11/17 20:15; Start 06/11/17 at 21:00; Stop 06/13/17 at 14:00; Status DC Trazodone HCl (Desyrel) 50 mg PRN QHS PRN PO Insomnia Last administered on 06/20 22:43; Start 06/15/17 at 02:00 Ondansetron HCl (Zofran Odt) 4 mg PRN Q8HRS PRN PO NAUSEA/VOMITING Last administered on 06/20/17 08:39; Start 06/20/17 at 08:15 Active Scripts Active Reported Trazodone Hcl 50 Mg Tablet 50 Mg PO PRN QHS PRN Wellbutrin Xl (Bupropion Hcl) 300 Mg Tab.er.24h 300 Mg PO DAILY Klor-Con M20 (Potassium Chloride) 20 Meq Tab.er.prt 40 Meq PO DAILYWBKFT Olanzapine Odt (Olanzapine) 5 Mg Tab.rapdis 2.5 Mg PO PRN Q2HR PRN [place] (Menthol) 113 Gm Gel..gram. 1 Yuriy TP PRN QID PRN Milk Of Magnesia (Magnesium Hydroxide) 2,400 Mg/10 Ml Oral.susp 2,400 Mg PO PRN QHS PRN Maalox Maximum Strength Susp (Mag Hydrox/Al Hydrox/Simeth) 355 Ml Oral.susp 15 Ml PO PRN AFTMEALHC PRN Latuda (Lurasidone Hcl) 40 Mg Tablet 60 Mg PO DAILY Levothyroxine Sodium 25 Mcg Tablet 25 Mcg PO DAILYAC Furosemide 40 Mg Tablet 40 Mg PO DAILY Vitamin D3 (Cholecalciferol (Vitamin D3)) 50,000 Unit Capsule 50,000 Unit PO WEEKLY Tylenol (Acetaminophen) 325 Mg Tablet 650 Mg PO PRN Q6HRS PRN Risperidone 0.5 Mg Tablet 0.25 Mg PO BID Aricept (Donepezil Hcl) 5 Mg Tablet 5 Mg PO HS Amlodipine Besylate 10 Mg Tablet 10 Mg PO DAILY Diagnosis: Problems: (1) Impulse control disorder (2) Vascular dementia with behavior disturbance (3) Schizoaffective disorder, bipolar type (4) Major neurocognitive disorder, due to vascular disease, with behavioral disturbance, mild (5) Dementia in Alzheimer's disease with delirium (6) Bipolar 1 disorder, manic, moderate (7) Anxiety disorder SCOTT OLSON MD Jun 21, 2017 18:09
[2017-06-21] MEDS: DONEPEZIL HCL 5 MG TABLET. PO SCH (18:47)
[2017-06-22 06:29] VITALS: BP 128/69
[2017-06-22] MEDS: LEVOTHYROXINE 25 MCG TABLET. PO SCH (06:32)
[2017-06-22 08:54] VITALS: BP 128/69
[2017-06-22] MEDS: buPROPion XL 300 MG TAB.ER.24H. PO SCH (08:54)
[2017-06-22] MEDS: amLODIPine BESYLATE 10 MG TABLET PO SCH (08:54)
[2017-06-22] MEDS: FUROSEMIDE 40 MG TABLET PO SCH (08:54)
[2017-06-22] MEDS: POTASSIUM CHLORIDE 10 MEQ TABLET.ER. PO SCH (08:54)
[2017-06-22] MEDS: LURASIDONE 40 MG TABLET. PO SCH (08:55)
--- NOTE | 2017-06-22 10:38 | PN ---
DATE: 06/18/2017 This late entry 06/18/2017 covers elements not covered in my initial note of 06/18/2017. I met with the patient in the evening of 06/18/2017. Overall, she is doing reasonably well, still somewhat withdrawn, sits with her head held downward. Appetite is fair, smacked the hand off another patient, but not aggressive. REVIEW OF SYSTEMS: Ambulation impaired, in a wheelchair. No CV, , pulmonary, eye, ENT system symptoms on review. MENTAL STATUS EXAM: Oriented to herself and situation. Speech moderate latency, often responses monosyllabic. Abstraction fair, computation impaired, language function intact. Attention span short, seems less psychotic. LABORATORY DATA: Reviewed. IMPRESSION: Unchanged from initial note. PLAN: Continue current psychotropics mentioned in my initial note, review drug interactions, risk/benefit ratio favors no further change. MAN Nataly OLSON MD DR: JAZZMINE/dennis JOB#: [id number] / [id number]
--- NOTE | 2017-06-23 06:23 | PN ---
DATE: 06/21/2017 This late entry for 06/21/2017 covers elements not covered in my initial note of 06/21/2017. SUBJECTIVE: I met with the patient the evening of 06/21/2017. Overall, the patient has been somewhat drowsy in the evening, more awake in the morning. REVIEW OF SYSTEMS: Ambulation impaired, in a wheelchair. No CV, , pulmonary, eye, ENT system symptoms on review. MENTAL STATUS EXAMINATION: Oriented to herself and situation. Speech moderate latency, coherent, often responses monosyllabic. Abstraction fair, computation impaired, language function intact. Mood and affect somewhat improved, less depressed. No suicidal or homicidal ideation. Family have arranged for her transfer to a nursing facility in [place]. LABORATORY DATA: Reviewed. IMPRESSION: Unchanged from my initial note. PLAN: Continue current psychotropics. Reviewed drug interactions, risk/benefit ratio, favors no further change. SCOTT OLSON MD DR: JAZZMINE/dennis JOB#: [id number] / [id number]
--- NOTE | 2017-06-23 09:47 | PN ---
DATE: 06/20/2017 This late entry 06/20/2017 covers elements not covered in my initial note of 06/20/2017. I met with the patient in the evening of 06/20/2017. The patient has been somewhat withdrawn, vomited in the morning, received Zofran, then was somewhat tired, slept in her chair. Family is arranging transfer to nursing facility in [place]. REVIEW OF SYSTEMS: Ambulation impaired, in wheelchair. No CV, , pulmonary, eye, ENT system symptoms on review. By the time I met with her evening of 06/20/2017, mental status exam oriented to herself and situation. Speech moderate latency, often responses monosyllabic. Abstraction fair, computation impaired, language function intact. Mood and affect still somewhat withdrawn, but improved. LABORATORY DATA: Reviewed. IMPRESSION: Unchanged from initial note. PLAN: Continue current psychotropics mentioned in my initial note. Review drug interactions. Risk/benefit ratio favors no further change. SCOTT OLSON MD DR: JAZZMINE/dennis JOB#: [id number] / [id number]
--- NOTE | 2017-06-23 21:46 | DS ---
DATE OF DISCHARGE: 06/22/2017 This late entry for 06/22/2017 covers elements not covered in my initial note of 06/22/2017. REASON FOR ADMISSION: Please refer to the admission history for details. Briefly, the patient is an 81-year-old female, referred to us from home via [facility] where she presented with an acute exacerbation of her schizophrenia/schizoaffective disorder, bipolar type with psychotic features. The patient had been resistive to cares confused, paranoid, agitated, aggressive, had failed outpatient psychiatric interventions resulting in this referral. SIGNIFICANT FINDINGS AND CLINICAL COURSE: Following admission, the patient was seen daily individually by myself, followed medically per Dr. Cardona/Dr. Perdomo. She was initially quite withdrawn, isolated, psychotic, confused, irritable and labile in her mood. Adjustments were made in her psychotropics. She seemed to respond to a combination of Latuda 60 mg a day, Wellbutrin-XL 300 mg a day, Aricept 5 mg a day, trazodone and Zyprexa p.r.n. Prior to discharge on 06/22/2017, ambulation impaired. No CV, , pulmonary, eye, ENT system symptoms on review. Gait unsteady in a wheelchair. Eye contact poor. MENTAL STATUS EXAMINATION: Oriented to herself and situation. Speech moderate latency, often responses monosyllabic. Abstraction fair, computation impaired, language function intact, attention span short. Mood and affect, lability was improved as was the psychotic symptoms. She is still somewhat withdrawn. LABORATORY DATA: Reviewed. FINAL DIAGNOSES: Schizoaffective disorder, bipolar type, mixed with psychotic features, in partial remission; major neurocognitive disorder, early Alzheimer, vascular with delusion, depression, behavioral disturbance; anxiety disorder, unspecified; impulse control disorder, unspecified; cognitive disorder, unspecified. Rest diagnoses unchanged from admission. DISCHARGE MEDICATIONS: Please refer to the MRAD. DISCHARGE INSTRUCTIONS: Outpatient psychiatric and medical followup at the snf. Family had arranged to transfer her to a snf in [place] at discharge and followup will be there. Time for discharge day management greater than 30 minutes. SCOTT OLSON MD DR: JAZZMINE/dennis JOB#: [id number] / [id number]
== END 2017-06-22 11:30 | DRG 884 ==
LOC: EEVIPCON → GEROPSY 18:18
PROVIDERS: ADMIT Psychiatry & Neurology Psychiatry; ATTEND Psychiatry & Neurology Psychiatry
DX: F01.51 Vascular dementia, unspecified severity, with behavioral disturbance (principal); G30.9 Alzheimer's disease, unspecified; N39.0 Urinary tract infection, site not specified; F02.81 Dementia in other diseases classified elsewhere, unspecified severity, with behavioral disturbance; F25.0 Schizoaffective disorder, bipolar type; E03.9 Hypothyroidism, unspecified; E55.9 Vitamin D deficiency, unspecified; E87.6 Hypokalemia; F63.9 Impulse disorder, unspecified; I10 Essential (primary) hypertension; G47.00 Insomnia, unspecified; N63.10 Unspecified lump in the right breast, unspecified quadrant; Z66 Do not resuscitate; Z55.9 Problems related to education and literacy, unspecified; Z79.899 Other long term (current) drug therapy; Z86.73 Personal history of transient ischemic attack (TIA), and cerebral infarction without residual deficits; Z87.440 Personal history of urinary (tract) infections; Z91.410 Personal history of adult physical and sexual abuse; Z91.411 Personal history of adult psychological abuse
CPT/HCPCS: 36415; 76641; 80048; 80053; 80061; 80164; 82306; 82607; 83036; 83540; 83550; 83735; 84436; 84443; 84480; 85025; 86592; 86593; 93005; Q0162; 97110; 97116; 97530; 97535